=== PATIENT | female | born 1940 | race Caucasian/White ===

== ENCOUNTER 2017-08-09 19:17 | Emergency (ER) | payer MEDICARE, OTHER, SELFPAY ==
[2017-07-24 22:32] VITALS: BMI 23.9
[2017-08-09 19:25] VITALS: BP 137/86; PULSE 112; RESP 24; TEMP 36.7; O2SAT 99; BMI 22.8
[2017-08-09 19:32] VITALS: BP 137/86; PULSE 112; RESP 24; TEMP 36.7; O2SAT 99; BMI 22.8
--- NOTE | 2017-08-09 19:58 | ED.GENADULT ---
HPI - General Adult General Chief complaint: Recheck/Abnormal Lab/Rx Stated complaint: STATES HER BOTTOM HURTS Time Seen by Provider: 08/09/17 19:44 Source: patient and family Mode of arrival: ambulatory Limitations: no limitations History of Present Illness HPI narrative: 77-year-old female with a chronic history of rectal pain and a recent diagnosis of proctitis here with her for evaluation of increasing pain. Patient and state that they were told to come to the emergency department by the home health nurse and their primary doctor. During my initial evaluation patient's states that he has withheld her medication for the past 4 days. Upon further questioning is revealed that this was done because on Monday of last week the patient took approximately 6 days worth of her medication all at 1 time. Upon further questioning the patient states that she did this to try to kill herself because she did not want her to have to deal with her anymore. Also found out that the patient has tried to overdose in the past. Patient's stated that he did give her some of her medicines this morning but he does not know which ones they were. He states that after her last admission here in the hospital couple weeks ago where she was admitted for what sounded like an accidental overdose of her medicines he to control for medicines however put them in a pill box on the counter and the patient took them on her own. The rectal pain she is having is her chronic rectal pain just worse. Related Data Home Medications Medication Instructions Recorded Confirmed [BENEFIBER] 1 dose PO DAILY PRN #0 01/18/17 07/26/17 hydrocortisone acetate [Anusol-HC] 25 mg R PRN PRN #0 01/18/17 07/26/17 ondansetron HCl 8 mg PO Q8HP PRN #0 01/18/17 07/26/17 acetaminophen 500 mg PO Q6H PRN 07/24/17 07/26/17 amlodipine 10 mg PO QPM 07/24/17 07/26/17 clobetasol 1 applic TOPICAL PRN PRN 07/24/17 07/26/17 cyclosporine [Restasis] 1 drp OPHTHALMIC (EYE) BID 07/24/17 07/26/17 donepezil 10 mg PO BEDTIME 07/24/17 07/26/17 duloxetine 30 mg PO TID 07/24/17 07/24/17 estradiol 1 g VAGINAL DIRECTED 07/24/17 07/24/17 fluticasone furoate 1 spray INTRANASAL DAILY 07/24/17 07/24/17 hydrocortisone acetate [Anusol-HC] 1 supp [place] PRN PRN 07/24/17 07/24/17 ipratropium bromide 2 spray INTRANASAL BID 07/24/17 07/24/17 ketorolac 1 - 2 ml IM SEEINSTR MDD 5 x mo 07/24/17 07/24/17 lidocaine 1 applic TOPICAL PRN PRN 07/24/17 07/24/17 memantine 10 mg PO BID 07/24/17 07/24/17 mesalamine 2 tab PO DAILY 07/24/17 07/24/17 nystatin 1 applic TOPICAL BID 07/24/17 07/24/17 oxybutynin chloride 5 mg PO DAILY 07/24/17 07/24/17 pregabalin 100 mg PO BID 07/24/17 07/24/17 sumatriptan succinate 1 tab PO PRN PRN MDD 2 07/24/17 07/24/17 trazodone 150 mg PO QHS 07/24/17 07/24/17 triamcinolone acetonide 2 spray TOPICAL DAILY 07/24/17 07/24/17 wheat dextrin [Benefiber Clear SF 1 packet PO PRN PRN 07/24/17 07/24/17 (dextrin)] Allergies Allergy/AdvReac Type Severity Reaction Status Date / Time baclofen [BACLOFEN] Allergy Unknown Verified 07/25/17 10:04 cyclobenzaprine Allergy Unknown Verified 07/25/17 10:04 [From FLEXERIL] nortriptyline [NORTRIPTYLINE] Allergy Unknown Verified 07/25/17 10:04 Sulfa (Sulfonamide AdvReac Mild vomiting Verified 07/25/17 10:04 Antibiotics) [SULFA (SULFONAMIDE ANTIBIOTICS)] pantoprazole [From PROTONIX] AdvReac Unknown NAUSEA/DIAR Verified 07/25/17 10:04 SEAN Review of Systems Constitutional Denies chills, Denies fever(s), Denies lethargy and Denies weakness Cardiovascular Denies chest pain, Denies irregular heart rhythm, Denies lightheadedness, Denies palpitations, Denies dyspnea, Denies dyspnea on exertion and Denies orthopnea Respiratory Denies cough, Denies dyspnea, Denies dyspnea on exertion and Denies wheezing Gastrointestinal Gastrointestinal: Denies abdominal pain, Denies nausea and Denies vomiting Comments: Rectal pain Genitourinary Denies dysuria Musculoskeletal Denies back pain, Denies muscle weakness, Denies numbness and Denies tingling Integumentary/Breasts Denies pruritus, Denies erythema, Denies rash and Denies wounds Neurologic Denies numbness, Denies tingling and Denies weakness Psychiatric Reports depression, Reports hopelessness, Reports mood swings and Reports suicidal ideation (On Monday but none today) Endocrine Denies palpitations Hematologic/Lymphatic Denies easy bruising Allergic/Immunologic Denies wheezing [facility] Medical History Anxiety (Acute) Chronic pain syndrome (Acute) Chronic rectal pain (Acute) Degenerative arthritis (Acute) Dementia (Acute) Depression (Acute) H/O: hysterectomy (Acute) History of femur fracture (Acute) Hypertension (Acute) Irritable bowel syndrome (IBS) (Acute) Migraine (Acute) Peptic ulcer hemorrhage (Acute) Spinal stenosis (Acute) Surgical History History of appendectomy (Acute) Social History household members: spouse caregiver/support person: Yes other: She drinks about 2 alcoholic beverages a week. No cigarette smoking Exam Initial Vital Signs Initial Vital Signs: Vital Signs Temperature 98.1 F 08/09/17 19:25 Pulse Rate 112 H 08/09/17 19:25 Respiratory Rate 24 08/09/17 19:25 Blood Pressure 137/86 H 08/09/17 19:25 Pulse Oximetry 99 08/09/17 19:25 Const General: cooperative and well developed Nutritional Appearance: well nourished Orientation: alert, awake, oriented x3 and not confused [facility] Head: normocephalic and atraumatic Ears: external ears normal and TM's normal bilaterally Nose: external nose normal and No nasal discharge Face and sinus: sinuses nontender, face symmetric, no sinus tenderness and No dry mucous membranes Mouth: oral mucosae normal and moist mucous membranes Teeth and gingiva: dentition normal Throat: tonsils normal and uvula midline Chest Chest: normal inspection of the chest Resp Effort & Inspection: normal respiratory effort, able to speak in complete sentences, no respiratory distress and no use of accessory muscles Auscultation: clear to auscultation bilaterally, no rales, no rhonchi and no wheezes Skin General: no rashes or lesions noted, No jaundice and No petechiae Neuro General: alert, awake and oriented x3 Cognition: normal cognition Speech: speech normal Motor: muscle tone normal throughout Sensory Exam: no sensory deficits noted Psych Appearance: well kempt Speech and Movement: speech and movement normal Mood: anxious mood and irritable mood Affect: sad Thought Process: normal Thought Content: suicidality Judgment: fair Course Orders Ordered: Discontinued Medications Pregabalin (Lyrica) 100 mg PO NOW ONE Stop: 08/10/17 20:01 Pregabalin (Lyrica) 100 mg PO NOW COURTNEY Last Admin: 08/09/17 20:18 Dose: 100 mg Vital Signs - 8 hr 08/09/17 19:25 08/09/17 19:32 Temperature 98.1 F 98.1 F Pulse Rate 112 H 112 H Respiratory Rate 24 24 Blood Pressure 137/86 H 137/86 H Pulse Oximetry 99 99 Medical Decision Making MDM Narrative Medical decision making narrative: Patient with 12 years of rectal pain and has not had her pain medication in the past 4 days. She was given Lyrica here in the emergency department and afterwards she states that her symptoms have improved. We had a long discussion regarding her pain and I suspect that she had a spike in the pain because she has not had her normal medications for the past 4 days. We also had a very long discussion with the patient and her who is at bedside regarding the situation that happened last Monday in her taking the medications. She states that at the time she was taking them to hurt herself however currently she denied any suicidality. She has had reported history of suicide attempts in the past from overdosing. Patient kept saying that she just wanted to be admitted to the hospital but with further questioning she states that it was for pain control not because of thoughts of hurting herself. We had long discussion regarding options to include an acute admission to mental health facility for her symptoms versus getting her set up with a next day appointment with the crisis center in [place]. After this long discussion we decided to schedule the patient with an acute care follow-up tomorrow. The patient did not want admitted to the hospital. Her states that he felt safe taking her home. The patient states that she felt safe going home. She states she would not act on any thoughts that she was having. The was going to take control of her medications and physically given to her each day. Patient was given return precautions. She was given the information for the acute care follow-up tomorrow. She was informed that she could return to the emergency department at any point if she had thoughts of hurting herself. She was alert and oriented x3. In my opinion had capacity to make decisions. was at bedside for all this discussion and also agreed with taking her home. Discharge Plan Departure Patient Disposition: Home, Self-Care Clinical Impression: Proctitis, Depression Discharge Date/Time: 08/09/17 22:16 Interventions: ED Discharge Assessment Last Done: 08/09/17 22:15 Instructions: DI for Chronic Pain -- Adult Activity Restrictions/Additional Instructions: I recommend that you continue all of your medications starting this evening as directed. You have already received your night dose of Lyrica. Highly recommend that you follow up with the [facility] tomorrow at 1630 hr at [address] in [place]. The crisis line is [phone] you can call this number at any point if you are having thoughts of hurting herself or others. You can also return to the emergency department at any point if you are having these thoughts. Contact your primary care doctor for a follow-up to discuss your medications. Prescriptions: No Action hydrocortisone acetate [Anusol-HC] 25 MG suppository 25 mg R PRN PRN (Reason: Hemorrhoids) Qty: 0 RF: 0 [BENEFIBER] 1 dose PO DAILY PRN (Reason: Constipation) Qty: 0 RF: 0 ondansetron HCl 8 MG tablet 8 mg PO Q8HP PRN (Reason: Nausea And Vomiting) Qty: 0 RF: 0 sumatriptan succinate 100 mg Tablet 1 tab PO PRN MDD 2 PRN (Reason: Headache) RF: 0 donepezil 10 mg Tablet 10 mg PO BEDTIME RF: 0 acetaminophen 500 mg Tablet 500 mg PO Q6H PRN (Reason: Pain, Mild) RF: 0 amlodipine 10 mg Tablet 10 mg PO QPM RF: 0 trazodone 150 mg Tablet 150 mg PO QHS RF: 0 oxybutynin chloride 5 mg Tablet Extended Release 24hr 5 mg PO DAILY RF: 0 estradiol 0.01 % (0.1 mg/gram) Cream 1 g VAGINAL DIRECTED RF: 0 ipratropium bromide 0.03 % [place],Non-Aerosol 2 spray INTRANASAL BID RF: 0 memantine 10 mg Tablet 10 mg PO BID RF: 0 duloxetine 30 mg Capsule,Delayed Release(Dr/Ec) 30 mg PO TID RF: 0 ketorolac 60 mg/2 mL Syringe 1 - 2 ml IM SEEINSTR MDD 5 x mo RF: 0 pregabalin 100 mg Capsule 100 mg PO BID RF: 0 mesalamine 1.2 gram Tablet,Delayed Release (Dr/Ec) 2 tab PO DAILY RF: 0 fluticasone furoate 27.5 mcg/actuation [place],Suspension 1 spray Intranasal DAILY RF: 0 clobetasol 0.05 % Cream 1 applic Topical PRN PRN (Reason: unknown) RF: 0 hydrocortisone acetate [Anusol-HC] 25 mg Suppository 1 supp IL PRN PRN (Reason: Hemorrhoids) RF: 0 nystatin 100,000 unit/gram Cream 1 applic Topical BID RF: 0 cyclosporine [Restasis] 0.05 % [place] 1 drp ophthalmic (eye) BID RF: 0 triamcinolone acetonide 0.147 mg/gram Aerosol 2 spray TOPICAL DAILY RF: 0 wheat dextrin [Benefiber Clear SF (dextrin)] 3 gram/3.5 gram Powder In Packet 1 packet PO PRN PRN (Reason: Constipation) RF: 0 lidocaine 5 % Ointment 1 applic TOPICAL PRN PRN (Reason: unknown) RF: 0
[2017-08-09] MEDS: PREGABALIN 50 MG CAPSULE 100 MG PO (20:18)
--- NOTE | 2017-08-09 22:13 | PC.NURSE ---
Called [facility], obtained day after appointment for pt. Pt admitted to provider she had taken her meds on monday in an attempt to kill herself, she had taken 5 days worth of medications. APt scheduled for 1630 tomorrow in [place].
== END 2017-08-09 22:16 | disposition home or self-care (01) ==
PROVIDERS: Emergency Provider Emergency Medicine; Family Provider Internal Medicine; PCP Internal Medicine
DX: K62.89 Other specified diseases of anus and rectum (principal); F32.9 Major depressive disorder, single episode, unspecified
CPT/HCPCS: 99282; 99283

== ENCOUNTER → 2017-08-12 17:09 | Outpatient (CLI) | payer SELFPAY ==
[2017-07-24 22:32] VITALS: BMI 23.9
== END ==
PROVIDERS: Family Provider Internal Medicine; PCP Internal Medicine; Visit Provider Physician Assistant
DX: N39.0 Urinary tract infection, site not specified (principal)
CPT/HCPCS: 87077; 87086; 87186

== ENCOUNTER → 2017-12-11 08:22 | Outpatient (CLI) | payer MEDICARE, OTHER, SELFPAY ==
[2017-07-24 22:32] VITALS: BMI 23.9
--- NOTE | 2017-12-11 | DI.ECHO.S_ITS ---
[facility] +---------+ [facility] +---------+ : : [address] [place] : : : : [id number] : : : : Phone: [phone]+ Echocardiogram Report + + :Name: MOISES DA SILVA Study Date: 12/11/2017 Height: 60 in : :[facility] Weight: 134 lb : : Gender: Female BSA: 1.6 m2 : :: 1940 Age: 77 yrs BP: 152/88 mmHg: :Reason For Study: Edema, Dyspnea : : Performed By: Vika Patton : :Referring: ROBERT BARKER : + + Interpretation Summary Normal left ventricle size with ejection fraction 60-65%. Grade I diastolic dysfunction. Mild aortic regurgitation. The ascending aorta is mildly enlarged. Mild tricuspid regurgitation. The right ventricular systolic pressure is estimated at least 35 mmHg assuming a right atrial pressure of 8 mm Hg. (it was 45-50 mmHg in the previous study). Comparison is made with the echocardiogram of 08/13/2010, there has been no significant change. Procedure: A two-dimensional transthoracic echocardiogram with color flow and Doppler was performed. The study quality was technically adequate. Comparison is made with the echocardiogram of 08/13/2010. The patient was in normal sinus rhythm during the exam. Left Ventricle: The left ventricle is normal in size. There is normal left ventricular wall thickness. The ejection fraction is estimated to be 60-65%. Left ventricular wall motion is normal. Assessment of diastolic parameters indicates a relaxation abnormality of the left ventricle, consistent with normal filling pressures. Right Ventricle: The right ventricle is normal in size and function. Atria: Both atria are normal in size. There is no Doppler evidence for an interatrial shunt. Mitral Valve: The mitral valve is normal in structure and function. There is trace mitral regurgitation. Aortic Valve: The aortic valve is trileaflet. The aortic valve opens well. There is mild aortic regurgitation. Tricuspid Valve: The tricuspid valve is normal in structure and function. There is mild tricuspid regurgitation. The right ventricular systolic pressure is estimated at least 35 mmHg assuming a right atrial pressure of 8 mm Hg. Pulmonic Valve: The pulmonic valve leaflets are thin and pliable; valve motion is normal. There is mild pulmonic regurgitation. Great Vessels: The aortic root is normal size. The ascending aorta is mildly enlarged. The aortic arch is normal in size. The IVC is dilated (diameter is greater than 2.1 cm) yet it collapses greater than 50% with a sniff. This suggests a right atrial pressure of 8 mm Hg. Pericardium/ Pleura There is no pericardial effusion. There is no pleural effusion. MMode/2D Measurements & Calculations LVIDd: 4.3 cm LVOT diam: 2.2 cm LVIDs: 2.9 cm Ao root diam: 3.6 cm FS: 32.0 % Aortic Jxn: 3.2 cm EPSS: 0.27 cm asc Aorta Diam: 3.7 cm IVSd: 0.76 cm Ao Arch Diam (Prox Trans): 2.6 cm LVPWd: 0.81 cm LV moses. diameter/BSA (cm/m^2): 2.7 LV sys. diameter/BSA (cm/m^2): 1.9 LA A2 area: 16.1 cm2 RA long axis: 5.7 cm LA A4 area: 18.5 cm2 RA area: 17.9 cm2 LA length (vol): 5.4 cm RA vol: 48.3 ml LA vol: 46.8 ml RA : 30.7 ml/m2 LA vol index: 29.7 ml/m2 IVC diam: 2.2 cm RVD1 (basal): 3.2 cm RVD2 (mid): 2.1 cm Doppler Measurements & Calculations Ao V2 max: 192.3 cm/sec LVOT Max Anjel: 154.4 cm/sec Ao V2 mean: 129.3 cm/sec LV V1 max P.5 mmHg Ao max P.8 mmHg LV V1 VTI: 30.4 cm Ao mean P.8 mmHg GONZALES(I,D): 2.9 cm2 Ao V2 VTI: 38.7 cm GONZALES(V,D): 2.9 cm2 sev ratio: 0.79 GONZALES indexed to BSA (cm^2/m^2): 1.8 AI P1/2t: 488.5 msec AI dec slope: 296.0 cm/sec2 MV E max anjel: 86.9 cm/sec TR max anjel: 259.4 cm/sec MV A max anjel: 115.8 cm/sec TR max P.9 mmHg MV E/A: 0.75 PA V2 max: 100.7 cm/sec Med Peak E' Anjel: 4.5 cm/sec PA V2 mean: 62.9 cm/sec E/E' med: 19.2 PA mean P.9 mmHg Lat Peak E' Anjel: 7.7 cm/sec PA Accel Time: 0.07 sec E/E' lat: 11.3 E/e' average: 15.3 MV dec time: 0.19 sec MV P1/2t: 57.8 msec MV /2t max anjel: 87.0 cm/sec MVA(2t): 3.8 cm2 Electronically signed by: Elbert Correia on Reading Physician:12/11/2017 10:16 AM
[2017-12-11 10:28] LABS: Add Manual Diff / Slide Review NO; Alanine Aminotransferase 53 IU/L (9-52); Albumin 4.3 g/dL (3.5-5.0); Albumin Globulin Ratio 1.4 (1.0-2.8); Alkaline Phosphatase 88 U/L (38-126); Aspartate Aminotransferase 51 IU/L (14-36); BUN Creatinine Ratio 21.4 (6-22); Basophils Percent Auto 1.2 % (0-2); Bilirubin Total 0.4 mg/dL (0.2-1.3); Blood Urea Nitrogen 15 mg/dL (7-17); Calcium 9.4 mg/dL (8.4-10.2); Carbon Dioxide 34 mmol/L (22-32); Chloride 96 mmol/L (98-107); Cholesterol 164 mg/dL (140-199); Eosinophils Percent Auto 6.6 % (2-4); Estimated Glomerular Filt Rate > 60.0 mL/min (>60); Glucose 70 mg/dL (80-110); HDL Cholesterol 75 mg/dL (40-60); HEMOLYSIS < 15 (0-50); Hematocrit 34.4 % (36-46); Hemoglobin 11.7 g/dL (12.0-16.0); LDL Cholesterol Calculated 69 mg/dL (<100); Lymphocytes Percent Auto 24.7 % (25-40); Mean Corpuscular Hemoglobin 29.8 PG (26-34); Mean Corpuscular Volume 87.7 fL (80-100); Monocytes Percent Auto 9.2 % (3-14); Neutrophils Absolute Auto 2600 /uL (3000-5900); Neutrophils Percent Auto 58.3 % (50-75); Platelet Count 276 X10^3/uL (150-400); Potassium 3.6 mmol/L (3.4-5.1); Red Blood Cell Count 3.93 X10^6/uL (4.0-5.2); Red Cell Distribution Width 13.9 % (11.6-14.8); Sodium 137 mmol/L (137-145); Total Protein 7.3 g/dL (6.3-8.2); Triglycerides 98 mg/dL (35-150); White Blood Cell Count 4.5 X10^3/uL (4.5-11.0)
[2017-12-11 10:51] LABS: B Type Natriuretic Peptide < 100.0 (<100)
== END ==
PROVIDERS: Family Provider Internal Medicine; PCP Internal Medicine; Visit Provider Physician Assistant
DX: I08.2 Rheumatic disorders of both aortic and tricuspid valves (principal); R06.00 Dyspnea, unspecified; R60.9 Edema, unspecified; D50.0 Iron deficiency anemia secondary to blood loss (chronic); I10 Essential (primary) hypertension
CPT/HCPCS: 36415; 80053; 80061; 83880; 84443; 85025; 93306

== ENCOUNTER → 2017-12-18 09:28 | Outpatient (CLI) | payer MEDICARE, OTHER, SELFPAY ==
[2017-07-24 22:32] VITALS: BMI 23.9
== END ==
PROVIDERS: Family Provider Internal Medicine; PCP Internal Medicine; Visit Provider Internal Medicine
DX: M85.852 Other specified disorders of bone density and structure, left thigh (principal); Z78.0 Asymptomatic menopausal state; Z90.722 Acquired absence of ovaries, bilateral
CPT/HCPCS: 77080

== ENCOUNTER 2018-01-12 14:52 | Emergency (ER) | payer MEDICARE, OTHER, SELFPAY ==
[2017-07-24 22:32] VITALS: BMI 23.9
[2018-01-12 14:56] VITALS: BP 143/93; PULSE 83; RESP 18; TEMP 36.3; O2SAT 97; BMI 24.4
--- NOTE | 2018-01-12 16:37 | PC.NURSE ---
States vague pain, im not sure where it is. No pain with palpation
--- NOTE | 2018-01-12 17:01 | DI.CT.S_ITS ---
PROCEDURE: CT CERVICAL SPINE WO CON INDICATIONS: glf TECHNIQUE: Noncontrast 3 mm thick sections acquired from the skull base to the T4 level. Sagittal and coronal reformats were then constructed. For radiation dose reduction, the following was used: automated exposure control, adjustment of mA and/or kV according to patient size. COMPARISON: Merged With [facility], CT, C-SPINE WITHOUT CONTRAST, 06/02/2014, 10:08. FINDINGS: Image quality: Excellent. Bones: No fractures or dislocations. There is moderately severe degenerative disc disease and facet osteoarthritis over the middle third of the cervical spine, previously present also in May of 2014. Mild grade 1 retrolisthesis of C6 on C7 is again noted. Spinal and foraminal stenosis over the middle and lower thirds of the cervical spine appears present, as was previously the case. Visualized superior ribs are intact. Soft tissues: Prevertebral soft tissues are normal in thickness. No paravertebral hematomas. No apical pneumothoraces. IMPRESSION: Moderately severe degenerative disc disease over the middle and lower thirds of the cervical spine with spinal and foraminal stenosis but no acute trauma found. Little if any change has occurred from the comparison study in May of 2014. Dictated by: Cristian Blancas M.D. on 01/12/2018 at 17:46 Approved by: Cristian Blancas M.D. on 01/12/2018 at 17:47
--- NOTE | 2018-01-12 17:01 | DI.CT.S_ITS ---
PROCEDURE: CT HEAD/BRAIN WO CON INDICATIONS: glf, eye droop TECHNIQUE: Noncontrast 4.5 mm thick angled axial sections acquired from the foramen magnum to the vertex, with coronal and sagittal reformats. For radiation dose reduction, the following was used: automated exposure control, adjustment of mA and/or kV according to patient size. COMPARISON: [facility], CT, CT HEAD/BRAIN WO CON, 07/24/2017, 17:51. FINDINGS: Image quality: Excellent. CSF spaces: Basal cisterns are patent. No extra-axial fluid collections. The ventricles are symmetric in size and shape. Brain: No intracranial bleeds or masses. There is cerebral volume loss for age, with resultant ventricular and sulcal prominence. There are periventricular and deep white matter chronic small vessel ischemic changes. There is intracranial internal carotid artery atherosclerosis. Skull and face: Calvarium and visualized facial bones appear intact, without suspicious lesions. Sinuses: Visualized sinuses and mastoids are clear. IMPRESSION: No trauma found, but there is mild to moderate age related microvascular atherosclerotic change in the deep white matter of each hemisphere. Dictated by: Cristian Blancas M.D. on 01/12/2018 at 17:44 Approved by: Cristian Blancas M.D. on 01/12/2018 at 17:45
--- NOTE | 2018-01-12 17:05 | ED_ITS ---
HPI - Neck Pain/Injury <Sally Twila, SKIDDER RUNNER-BC - Last Filed: 01/12/18 22:17> General Chief Complaint: Neck Pain/Injury Stated Complaint: NECK PAIN LEFT EYE DISCOMFORT Time Seen by Provider: 01/12/18 16:50 Source: patient and RN notes reviewed Mode of arrival: ambulatory Limitations: no limitations History of Present Illness HPI Narrative: Patient is a 77-year-old female with history of migraines and chronic pain who presents with chief complaint of neck pain for 4 days as well as a droopy left eyelid that started 4 days ago as well. She denies any fevers , abnormal nausea vomiting or diarrhea. She denies any weakness anywhere else. She states that the left side of her neck hurts to touch. She denies headache. She denies dysuria urgency or frequency. She states that diarrhea is her baseline she denies abdominal pain. She initially declines any trauma mom a for me however tell as nursing staff that she fell yesterday. Related Data Home Medications Medication Instructions Recorded Confirmed acetaminophen 500 mg PO Q6H PRN 07/24/17 01/12/18 amlodipine 10 mg PO QPM 07/24/17 01/12/18 clobetasol 1 applic TOPICAL PRN PRN 07/24/17 01/12/18 cyclosporine [Restasis] 1 drp OPHTHALMIC (EYE) BID 07/24/17 01/12/18 donepezil 10 mg PO BEDTIME 07/24/17 01/12/18 estradiol 1 g VAGINAL DIRECTED 07/24/17 01/12/18 fluticasone furoate 1 spray INTRANASAL DAILY 07/24/17 01/12/18 hydrocortisone acetate [Anusol-HC] 1 supp CO PRN PRN 07/24/17 01/12/18 ipratropium bromide 2 spray INTRANASAL BID 07/24/17 01/12/18 lidocaine 1 applic TOPICAL PRN PRN 07/24/17 01/12/18 memantine 10 mg PO BID 07/24/17 01/12/18 mesalamine 2 tab PO DAILY 07/24/17 01/12/18 nystatin 1 applic TOPICAL BID 07/24/17 01/12/18 trazodone 150 mg PO BEDTIME 07/24/17 01/12/18 triamcinolone acetonide 2 spray TOPICAL DAILY 07/24/17 01/12/18 wheat dextrin [Benefiber Clear SF 1 packet PO PRN PRN 07/24/17 01/12/18 (dextrin)] chlorthalidone 12.5 mg PO DAILY 01/12/18 01/12/18 duloxetine 30 mg PO TID 01/12/18 01/12/18 furosemide 40 mg PO DAILY 01/12/18 01/12/18 losartan 50 mg PO DAILY 01/12/18 01/12/18 sumatriptan succinate 100 mg PO PRN PRN 01/12/18 01/12/18 Previous Rx's Medication Instructions Recorded pregabalin 100 mg capsule 100 mg PO BID #60 cap 09/25/17 erenumab-aooe 70 mg/mL 70 mg SUBCUT QMONTH #1 ml 12/21/17 subcutaneous auto-injector nitrofurantoin monohyd/m-cryst 100 mg PO BID #10 cap 01/12/18 [Macrobid] Allergies Allergy/AdvReac Type Severity Reaction Status Date / Time baclofen [BACLOFEN] Allergy Unknown Verified 01/12/18 15:09 cyclobenzaprine Allergy Unknown Verified 01/12/18 15:09 [From FLEXERIL] nortriptyline [NORTRIPTYLINE] Allergy Unknown Verified 01/12/18 15:09 Sulfa (Sulfonamide AdvReac Mild vomiting Verified 01/12/18 15:09 Antibiotics) [SULFA (SULFONAMIDE ANTIBIOTICS)] pantoprazole [From PROTONIX] AdvReac Unknown NAUSEA/DIAR Verified 01/12/18 15:09 SEAN Review of Systems <JACEK Ewing-BC - Last Filed: 01/12/18 22:17> Review of Systems GENERAL: Denies chills, fatigue, malaise, fever, sweats. HEENT: See HPI RESPIRATORY: Denies dyspnea, cough, wheezing, hemoptysis, sputum. CARDIOVASCULAR: Denies chest pain, palpitations, orthopnea, edema, GASTROINTESTINAL: Denies nausea, vomiting, abdominal pain, diarrhea, constipation, melena. : Denies dysuria, frequency, incontinence, hematuria, urinary retention. MUSCULOSKELETAL: see HPI SKIN: Denies rash, skin lesions, or other NEUROLOGIC: Denies weakness, headache, numbness, change in speech, confusion, seizures, incoordination. PSYCHIATRIC: No concerning psychosocial issues. 12 point review of systems is negative except for those stated above Exam <Sally SARAH MattsonP-BC - Last Filed: 01/12/18 22:17> Narrative Exam Narrative: GENERAL: elderly female in no acute distress HEAD: Atraumatic. Normocephalic. No temporal or scalp tenderness. EYES: right pupil 3 mm round and reactive. Left pupil 4 mm round and reactive.. Extraocular motions intact. No scleral icterus. No injection or drainage. Ptosis noted left eye. ENT: Nose without bleeding, purulent drainage or septal hematoma. Throat without erythema, tonsillar hypertrophy or exudate. Uvula midline. Airway patent. NECK: Trachea midline. No JVD or lymphadenopathy. Supple, nontender, no meningeal signs. Pain to palpation of left sternocleidomastoid. CARDIOVASCULAR: Regular rate and rhythm without murmurs, gallops, or rubs. RESPIRATORY: Clear to auscultation. Breath sounds equal bilaterally. No wheezes , rales, or rhonchi. no cough or accessory muscle use on exam. GASTROINTESTINAL: Abdomen soft, non-tender, nondistended. No hepato-splenomegaly , or palpable masses. No guarding. EXTREMITIES: No clubbing, cyanosis, or edema. No joint tenderness, effusion, or edema noted. BACK: Nontender without deformity or crepitance. No flank tenderness. No pain to palpation of C-spine or spine. No palpable step-offs or deformities. NEURO: AOx3. No slurred speech. Stable gait. cranial nerves grossly intact other than ptosis of left eye. Strength is equal upper and lower extremities bilaterally. Achilles and radialis reflexes are intact. SKIN: No rash or erythema. Initial Vital Signs Initial Vital Signs: Vital Signs Temperature 97.4 F L 01/12/18 14:56 Pulse Rate 83 01/12/18 14:56 Respiratory Rate 18 01/12/18 14:56 Blood Pressure 143/93 H 01/12/18 14:56 Pulse Oximetry 97 01/12/18 14:56 <Abhijit Buckley DO - Last Filed: 01/12/18 22:58> Initial Vital Signs Initial Vital Signs: Vital Signs Temperature 97.4 F L 01/12/18 14:56 Pulse Rate 83 01/12/18 14:56 Respiratory Rate 18 01/12/18 14:56 Blood Pressure 143/93 H 01/12/18 14:56 Pulse Oximetry 97 11/02/18 14:56 Course <Sally MattsonSARAHP-BC - Last Filed: 01/12/18 22:17> Course Narrative: I checked on the patient multiple times throughout her stay in the emergency department. Orders Ordered: ED Orders 01/12/18 15:07 EKG-12 Lead Stat 01/12/18 17:01 CT cervical spine wo con Stat CT head/brain wo con Stat 01/12/18 17:15 Urine Culture Stat Urine Microscopic Stat 01/12/18 17:32 B Type Natriuretic Peptide Stat Complete Blood Count AUTO DIFF Stat Comprehensive Metabolic Panel Stat Prothrombin Time INR Stat Troponin & CK Cardiac Panel Stat 01/12/18 18:39 CT angio head and neck Stat Discontinued Medications Acetaminophen (Tylenol) 650 mg PO NOW ONE Stop: 01/12/18 18:27 Last Admin: 01/12/18 18:28 Dose: 650 mg Ibuprofen (Advil) 400 mg PO NOW ONE Stop: 01/12/18 21:09 Last Admin: 01/12/18 21:31 Dose: 400 mg Nitrofurantoin Macrocrystals (Macrobid 100 Mg Capsule) 100 mg PO NOW ONE Stop: 01/12/18 21:09 Last Admin: 01/12/18 21:31 Dose: 100 mg Consultations Consultation #1: I spoke with radiologist regarding the CTA results. 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 He states that this is not an acute finding for this patient. Time: 20:30 Vital Signs - 8 hr 01/12/18 20:05 01/12/18 21:25 Pulse Rate 72 76 Respiratory Rate 12 16 Blood Pressure [Right Arm] 151/72 H 150/81 H Pulse Oximetry 95 97 <Abhijit Buckley DO - Last Filed: 01/12/18 22:58> Orders Ordered: ED Orders 01/12/18 15:07 EKG-12 Lead Stat 01/12/18 17:01 CT cervical spine wo con Stat CT head/brain wo con Stat 01/12/18 17:15 Urine Culture Stat Urine Microscopic Stat 01/12/18 17:32 B Type Natriuretic Peptide Stat Complete Blood Count AUTO DIFF Stat Comprehensive Metabolic Panel Stat Prothrombin Time INR Stat Troponin & CK Cardiac Panel Stat 01/12/18 18:39 CT angio head and neck Stat Discontinued Medications Acetaminophen (Tylenol) 650 mg PO NOW ONE Stop: 01/12/18 18:27 Last Admin: 01/12/18 18:28 Dose: 650 mg Ibuprofen (Advil) 400 mg PO NOW ONE Stop: 01/12/18 21:09 Last Admin: 01/12/18 21:31 Dose: 400 mg Nitrofurantoin Macrocrystals (Macrobid 100 Mg Capsule) 100 mg PO NOW ONE Stop: 01/12/18 21:09 Last Admin: 01/12/18 21:31 Dose: 100 mg Vital Signs - 8 hr 01/12/18 20:05 01/12/18 21:25 Pulse Rate 72 76 Respiratory Rate 12 16 Blood Pressure [Right Arm] 151/72 H 150/81 H Pulse Oximetry 95 97 MDM - Neck Pain/Injury <JACEK Ewing- - Last Filed: 01/12/18 22:17> Lab Data Result diagrams: 01/12/18 17:32 01/12/18 17:32 Lab Results 01/12/18 01/12/18 01/12/18 Range/Units 17:15 17:32 17:32 WBC 4.0 L (4.5-11.0) X10^3/uL RBC 3.68 L (4.0-5.2) X10^6/uL Hgb 11.2 L (12.0-16.0) g/dL Hct 33.2 L (36-46) % MCV 90.3 (80-100) fL MCH 30.5 (26-34) PG MCHC 33.8 (30-36) % RDW 13.3 (11.6-14.8) % Plt Count 280 (150-400) X10^3/uL Neut % (Auto) 59.5 (50-75) % Lymph % (Auto) 25.7 (25-40) % [place] % (Auto) 10.8 (3-14) % Eos % (Auto) 3.3 (2-4) % Baso % (Auto) 0.7 (0-2) % Neut # (Auto) 2400 L (0573-3369) /uL PT 11.4 (10.1-12.7) SECONDS INR 1.1 (0.9-1.3) Sodium (137-145) mmol/L Potassium (3.4-5.1) mmol/L Chloride (98-107) mmol/L Carbon Dioxide (22-32) mmol/L BUN (7-17) mg/dL Creatinine (0.52-1.04) mg/dL Estimated GFR (>60) mL/min BUN/Creatinine Ratio (6-22) Glucose (80-110) mg/dL Calcium (8.4-10.2) mg/dL Total Bilirubin (0.2-1.3) mg/dL AST (14-36) IU/L ALT (9-52) IU/L Alkaline Phosphatase (38-126) U/L Total Creatine Kinase (30-135) U/L CK-MB (CK-2) (<2.37) ng/mL CK-MB (CK-2) Rel Index (1.5-5.0) % Troponin I (0.01-0.034) ng/mL B-Natriuretic Peptide (<100) Total Protein (6.3-8.2) g/dL Albumin (3.5-5.0) g/dL Globulin (1.7-4.1) g/dL Albumin/Globulin Ratio (1.0-2.8) Urine RBC None seen (0-5/HPF) Urine WBC 1-5/hpf (0-5/HPF) Ur Squamous Epith Cells 0-1 /hpf Urine Bacteria Moderate (10-30) H (None) Ur Culture Indicated? Specimen cultured Micro UA Comment Not Reportable 01/12/18 01/12/18 Range/Units 17:32 17:32 WBC (4.5-11.0) X10^3/uL RBC (4.0-5.2) X10^6/uL Hgb (12.0-16.0) g/dL Hct (36-46) % MCV (80-100) fL MCH (26-34) PG MCHC (30-36) % RDW (11.6-14.8) % Plt Count (150-400) X10^3/uL Neut % (Auto) (50-75) % Lymph % (Auto) (25-40) % [place] % (Auto) (3-14) % Eos % (Auto) (2-4) % Baso % (Auto) (0-2) % Neut # (Auto) (0879-9433) /uL PT (10.1-12.7) SECONDS INR (0.9-1.3) Sodium 135 L (137-145) mmol/L Potassium 3.4 (3.4-5.1) mmol/L Chloride 98 (98-107) mmol/L Carbon Dioxide 27 (22-32) mmol/L BUN 12 (7-17) mg/dL Creatinine 0.50 L (0.52-1.04) mg/dL Estimated GFR > 60.0 (>60) mL/min BUN/Creatinine Ratio 24.0 H (6-22) Glucose 86 (80-110) mg/dL Calcium 9.3 (8.4-10.2) mg/dL Total Bilirubin 0.4 (0.2-1.3) mg/dL AST 55 H (14-36) IU/L ALT 52 (9-52) IU/L Alkaline Phosphatase 74 (38-126) U/L Total Creatine Kinase 517 H (30-135) U/L CK-MB (CK-2) 8.90 H (<2.37) ng/mL CK-MB (CK-2) Rel Index 1.7 (1.5-5.0) % Troponin I < 0.012 (0.01-0.034) ng/mL B-Natriuretic Peptide 47.9 (<100) Total Protein 6.6 (6.3-8.2) g/dL Albumin 4.1 (3.5-5.0) g/dL Globulin 2.5 (1.7-4.1) g/dL Albumin/Globulin Ratio 1.6 (1.0-2.8) Urine RBC (0-5/HPF) Urine WBC (0-5/HPF) Ur Squamous Epith Cells Urine Bacteria (None) Ur Culture Indicated? Micro UA Comment Urine Dip Bedside Urine Glucose Negative Bedside Urine Bilirubin - Negative Bedside Urine Ketone - Negative Urine Specific [place] 1.015 Bedside Urine Occult Blood - Negative Bedside Urine pH 6.0 Bedside Urine Protein - Negative Bedside Urine Urobilinogen - Negative Bedside Urine Nitrite - Negative Bedside Urine Leukocytes + [address] scan - head: Radiologist's impression: [address] [address] [address] Scan Report Signed Patient: Elizabeth Parker [facility]#: [id number] : 2Acct:[id number] Age/Sex: 77 / FDate of Service: 01/12/18 Loc: ED Accession Number: [id number] Procedure: CT head/brain wo con Ordering Provider: Sally Mattosn PROCEDURE: CT HEAD/BRAIN WO CON INDICATIONS: glf, eye droop TECHNIQUE: Noncontrast 4.5 mm thick angled axial sections acquired from the foramen magnum to the vertex, with coronal and sagittal reformats. For radiation dose reduction, the following was used: automated exposure control, adjustment of mA and/or kV according to patient size. COMPARISON: [facility], CT, CT HEAD/BRAIN WO CON, 07/24/2017, 17:51. FINDINGS: Image quality: Excellent. CSF spaces: Basal cisterns are patent. No extra-axial fluid collections. The ventricles are symmetric in size and shape. Brain: No intracranial bleeds or masses. There is cerebral volume loss for age , with resultant ventricular and sulcal prominence. There are periventricular and deep white matter chronic small vessel ischemic changes. There is intracranial internal carotid artery atherosclerosis. Skull and face: Calvarium and visualized facial bones appear intact, without suspicious lesions. Sinuses: Visualized sinuses and mastoids are clear. IMPRESSION: No trauma found, but there is mild to moderate age related microvascular atherosclerotic change in the deep white matter of each hemisphere. Dictated by: Cristian Blancas M.D. on 01/12/2018 at 17:44 Approved by: Cristian Blancas M.D. on 01/12/2018 at 17:[address] : Radiologist's impression: [place] [address] CT Scan Report Signed Patient: Elizabeth Parker [facility]#: [id number] : 2Acct:[id number] Age/Sex: 77 / FDate of Service: 01/12/18 Loc: ED Accession Number: [id number] Procedure: CT cervical spine wo con Ordering Provider: Sally Mattson PROCEDURE: CT CERVICAL SPINE WO CON INDICATIONS: glf TECHNIQUE: Noncontrast 3 mm thick sections acquired from the skull base to the T4 level. Sagittal and coronal reformats were then constructed. For radiation dose reduction, the following was used: automated exposure control, adjustment of mA and/or kV according to patient size. COMPARISON: [facility], CT, C-SPINE WITHOUT CONTRAST, 06/02/2014, 10:08. FINDINGS: Image quality: Excellent. Bones: No fractures or dislocations. There is moderately severe degenerative disc disease and facet osteoarthritis over the middle third of the cervical spine, previously present also in May of 2014. Mild grade 1 retrolisthesis of C6 on C7 is again noted. Spinal and foraminal stenosis over the middle and lower thirds of the cervical spine appears present, as was previously the case. Visualized superior ribs are intact. Soft tissues: Prevertebral soft tissues are normal in thickness. No paravertebral hematomas. No apical pneumothoraces. IMPRESSION: Moderately severe degenerative disc disease over the middle and lower thirds of the cervical spine with spinal and foraminal stenosis but no acute trauma found. Little if any change has occurred from the comparison study in May of 2014. Dictated by: Cristian Blancas M.D. on 01/12/2018 at 17:46 Approved by: Cristian Blancas M.D. on 01/12/2018 at 17:47 CTA head/neck: Radiologist's impression: MDM Narrative Medical decision making narrative: Patient is a 77-year-old female who presents with chief complaint of left-sided neck pain as well as drooping of the left eye. Otherwise her face is symmetrical, her cranial nerves are grossly intact and her exam is benign. She has pain upon palpation of the left side of her neck but has not taken yeuu-gav-sgejfco pain medications. She received a thorough workup in the emergency department including EKG, CT of her head, CT of her neck after report of a fall. Given her slightly unequal pupils , I obtained a CTA of her head and neck. 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 The patient had a CBC, CMP and troponin that were at her baseline. I discussed at length continued nnaq-uoh-pcmxsua comfort medications as well as strict follow-up for her primary care. She does have bacteria in her urine so I am treating her for urinary tract infection. given her new onset ptosis of her left eye, she may need MRI imaging in the future. I discussed at length follow up with primary care provider. She had no questions or concerns upon discharge. Discussed at length return precautions of concern of stroke or heart attack. <Abhijit Buckley, - Last Filed: 01/12/18 22:58> Lab Data Lab Results 01/12/18 01/12/18 01/12/18 Range/Units 17:15 17:32 17:32 WBC 4.0 L (4.5-11.0) X10^3/uL RBC 3.68 L (4.0-5.2) X10^6/uL Hgb 11.2 L (12.0-16.0) g/dL Hct 33.2 L (36-46) % MCV 90.3 (80-100) fL MCH 30.5 (26-34) PG MCHC 33.8 (30-36) % RDW 13.3 (11.6-14.8) % Plt Count 280 (150-400) X10^3/uL Neut % (Auto) 59.5 (50-75) % Lymph % (Auto) 25.7 (25-40) % [place] % (Auto) 10.8 (3-14) % Eos % (Auto) 3.3 (2-4) % Baso % (Auto) 0.7 (0-2) % Neut # (Auto) 2400 L (6704-0062) /uL PT 11.4 (10.1-12.7) SECONDS INR 1.1 (0.9-1.3) Sodium (137-145) mmol/L Potassium (3.4-5.1) mmol/L Chloride (98-107) mmol/L Carbon Dioxide (22-32) mmol/L BUN (7-17) mg/dL Creatinine (0.52-1.04) mg/dL Estimated GFR (>60) mL/min BUN/Creatinine Ratio (6-22) Glucose (80-110) mg/dL Calcium (8.4-10.2) mg/dL Total Bilirubin (0.2-1.3) mg/dL AST (14-36) IU/L ALT (9-52) IU/L Alkaline Phosphatase (38-126) U/L Total Creatine Kinase (30-135) U/L CK-MB (CK-2) (<2.37) ng/mL CK-MB (CK-2) Rel Index (1.5-5.0) % Troponin I (0.01-0.034) ng/mL B-Natriuretic Peptide (<100) Total Protein (6.3-8.2) g/dL Albumin (3.5-5.0) g/dL Globulin (1.7-4.1) g/dL Albumin/Globulin Ratio (1.0-2.8) Urine RBC None seen (0-5/HPF) Urine WBC 1-5/hpf (0-5/HPF) Ur Squamous Epith Cells 0-1 /hpf Urine Bacteria Moderate (10-30) H (None) Ur Culture Indicated? Specimen cultured Micro UA Comment Not Reportable 01/12/18 01/12/18 Range/Units 17:32 17:32 WBC (4.5-11.0) X10^3/uL RBC (4.0-5.2) X10^6/uL Hgb (12.0-16.0) g/dL Hct (36-46) % MCV (80-100) fL MCH (26-34) PG MCHC (30-36) % RDW (11.6-14.8) % Plt Count (150-400) X10^3/uL Neut % (Auto) (50-75) % Lymph % (Auto) (25-40) % [place] % (Auto) (3-14) % Eos % (Auto) (2-4) % Baso % (Auto) (0-2) % Neut # (Auto) (8445-4928) /uL PT (10.1-12.7) SECONDS INR (0.9-1.3) Sodium 135 L (137-145) mmol/L Potassium 3.4 (3.4-5.1) mmol/L Chloride 98 (98-107) mmol/L Carbon Dioxide 27 (22-32) mmol/L BUN 12 (7-17) mg/dL Creatinine 0.50 L (0.52-1.04) mg/dL Estimated GFR > 60.0 (>60) mL/min BUN/Creatinine Ratio 24.0 H (6-22) Glucose 86 (80-110) mg/dL Calcium 9.3 (8.4-10.2) mg/dL Total Bilirubin 0.4 (0.2-1.3) mg/dL AST 55 H (14-36) IU/L ALT 52 (9-52) IU/L Alkaline Phosphatase 74 (38-126) U/L Total Creatine Kinase 517 H (30-135) U/L CK-MB (CK-2) 8.90 H (<2.37) ng/mL CK-MB (CK-2) Rel Index 1.7 (1.5-5.0) % Troponin I < 0.012 (0.01-0.034) ng/mL B-Natriuretic Peptide 47.9 (<100) Total Protein 6.6 (6.3-8.2) g/dL Albumin 4.1 (3.5-5.0) g/dL Globulin 2.5 (1.7-4.1) g/dL Albumin/Globulin Ratio 1.6 (1.0-2.8) Urine RBC (0-5/HPF) Urine WBC (0-5/HPF) Ur Squamous Epith Cells Urine Bacteria (None) Ur Culture Indicated? Micro UA Comment Urine Dip Bedside Urine Glucose Negative Bedside Urine Bilirubin - Negative Bedside Urine Ketone - Negative Urine Specific [place] 1.015 Bedside Urine Occult Blood - Negative Bedside Urine pH 6.0 Bedside Urine Protein - Negative Bedside Urine Urobilinogen - Negative Bedside Urine Nitrite - Negative Bedside Urine Leukocytes + 70 Esterase Discharge Plan Departure Patient Disposition: Home Clinical Impression: Acute neck pain, Ptosis, Acute UTI Discharge Date/Time: 01/12/18 21:35 Interventions: ED Discharge Assessment Last Done: 01/12/18 21:37 Instructions: DI for Urinary Tract Infection (UTI), DI for Neck Pain Activity Restrictions/Additional Instructions: Your workup today came back normal. I encourage you to use pgsx-zgi-qzhbuyw pain medications as needed and able for your neck pain. Please follow-up with primary care provider in the next few days. Come back to the emergency department for any acute concerns including stroke or heart attack. Prescriptions: New nitrofurantoin monohyd/m-cryst [Macrobid] 100 mg capsule 100 mg PO BID Qty: 10 RF: 0 No Action pregabalin 100 mg capsule 100 mg PO BID Qty: 60 RF: 5 losartan 50 mg tablet 50 mg PO DAILY RF: 0 furosemide 40 mg tablet 40 mg PO DAILY RF: 0 sumatriptan succinate 100 mg tablet 100 mg PO PRN PRN (Reason: Headache) RF: 0 chlorthalidone 25 mg tablet 12.5 mg PO DAILY RF: 0 duloxetine 30 mg capsule,delayed release(DR/EC) 30 mg PO TID RF: 0 donepezil 10 mg Tablet 10 mg PO BEDTIME RF: 0 acetaminophen 500 mg Tablet 500 mg PO Q6H PRN (Reason: Pain, Mild) RF: 0 amlodipine 10 mg Tablet 10 mg PO QPM RF: 0 trazodone 150 mg Tablet 150 mg PO BEDTIME RF: 0 estradiol 0.01 % (0.1 mg/gram) Cream 1 g VAGINAL DIRECTED RF: 0 ipratropium bromide 0.03 % [place],Non-Aerosol 2 spray INTRANASAL BID RF: 0 memantine 10 mg Tablet 10 mg PO BID RF: 0 mesalamine 1.2 gram Tablet,Delayed Release (Dr/Ec) 2 tab PO DAILY RF: 0 fluticasone furoate 27.5 mcg/actuation [place],Suspension 1 spray Intranasal DAILY RF: 0 clobetasol 0.05 % Cream 1 applic Topical PRN PRN (Reason: unknown) RF: 0 hydrocortisone acetate [Anusol-HC] 25 mg Suppository 1 supp CO PRN PRN (Reason: Hemorrhoids) RF: 0 nystatin 100,000 unit/gram Cream 1 applic Topical BID RF: 0 cyclosporine [Restasis] 0.05 % [place] 1 drp ophthalmic (eye) BID RF: 0 triamcinolone acetonide 0.147 mg/gram Aerosol 2 spray TOPICAL DAILY RF: 0 wheat dextrin [Benefiber Clear SF (dextrin)] 3 gram/3.5 gram Powder In Packet 1 packet PO PRN PRN (Reason: Constipation) RF: 0 lidocaine 5 % Ointment 1 applic TOPICAL PRN PRN (Reason: unknown) RF: 0 onabotulinumtoxinA 200 unit recon soln 200 unit IM ONCE Qty: 1 RF: 0 erenumab-aooe [A[place]ovig Autoinjector] 70 mg/mL auto-injector 70 mg SUBCUT QMONTH Qty: 1 RF: 11 <Abhijit Buckley, DO - Last Filed: 01/12/18 22:58> Cosign ED Attending Blancaature Attestation: I was available for consultation during this patient's emergency department encounter
[2018-01-12 17:29] LABS: RBC Urine None Seen (0-5/HPF)
[2018-01-12 17:43] LABS: Add Manual Diff / Slide Review NO; Basophils Percent Auto 0.7 % (0-2); Eosinophils Percent Auto 3.3 % (2-4); Hematocrit 33.2 % (36-46); Hemoglobin 11.2 g/dL (12.0-16.0); Lymphocytes Percent Auto 25.7 % (25-40); Mean Corpuscular HGB Conc 33.8 % (30-36); Mean Corpuscular Hemoglobin 30.5 PG (26-34); Mean Corpuscular Volume 90.3 fL (80-100); Monocytes Percent Auto 10.8 % (3-14); Neutrophils Absolute Auto 2400 /uL (3000-5900); Neutrophils Percent Auto 59.5 % (50-75); Platelet Count 280 X10^3/uL (150-400); Red Blood Cell Count 3.68 X10^6/uL (4.0-5.2); Red Cell Distribution Width 13.3 % (11.6-14.8)
[2018-01-12 17:48] LABS: INR 1.1 (0.9-1.3); Prothrombin Time 11.4 SECONDS (10.1-12.7)
[2018-01-12 17:48] LABS: Bacteria Urine Moderate (10-30); Culture Indicated Urine Specimen Cultured; Squamous Epithelial Cell Urine 0-1 /HPF; WBC Urine 1-5/HPF (0-5/HPF)
[2018-01-12 17:53] LABS: Alanine Aminotransferase 52 IU/L (9-52); Albumin 4.1 g/dL (3.5-5.0); Albumin Globulin Ratio 1.6 (1.0-2.8); Alkaline Phosphatase 74 U/L (38-126); Aspartate Aminotransferase 55 IU/L (14-36); Bilirubin Total 0.4 mg/dL (0.2-1.3); Blood Urea Nitrogen 12 mg/dL (7-17); Calcium 9.3 mg/dL (8.4-10.2); Carbon Dioxide 27 mmol/L (22-32); Chloride 98 mmol/L (98-107); Creatine Kinase 517 U/L (30-135); Estimated Glomerular Filt Rate > 60.0 mL/min (>60); Globulin 2.5 g/dL (1.7-4.1); Glucose 86 mg/dL (80-110); HEMOLYSIS < 15 (0-50); Potassium 3.4 mmol/L (3.4-5.1); Sodium 135 mmol/L (137-145); Total Protein 6.6 g/dL (6.3-8.2)
[2018-01-12 18:04] LABS: B Type Natriuretic Peptide 47.9 (<100)
--- NOTE | 2018-01-12 18:08 | PC.NURSE ---
Hard c collar removed as not injury identified by ct. CMS intact
[2018-01-12 18:09] LABS: CKMB % Relative Index 1.7 % (1.5-5.0); Troponin I < 0.012 ng/mL (0.01-0.034)
[2018-01-12] MEDS: ACETAMINOPHEN 325 MG TABLET 650 MG PO (18:28)
--- NOTE | 2018-01-12 18:39 | DI.CT.S_ITS ---
PROCEDURE: CT ANGIO HEAD AND NECK INDICATIONS: neck pain TECHNIQUE: Pre-contrast 4.5 mm thick sections acquired from the foramen magnum to the vertex. After the administration of intravenous contrast, 1 mm thick sections acquired from the aortic arch through the [place]. Post-contrast 4.5 mm thick sections then re-acquired from the foramen magnum to the vertex. 3-dimensional xbdtago-xkissaajx-ufrdkwxtol (MIP) and/or volume rendering reformats were acquired of the central intracranial vasculature and neck separately. COMPARISON: None. FINDINGS: Image quality: Excellent. BRAIN: CSF spaces: Ventricles are normal in size and shape. Basal cisterns are patent. No extra-axial fluid collections. Brain: Mild age-appropriate cerebral and cerebellar cortical atrophy and mild periventricular white matter chronic ischemic microangiopathic changes are seen. No area of abnormal contrast enhancement is noted. No midline shift. No intracranial bleeds or masses. Flower-white matter interface appears intact. Skull and face: Calvarium and facial bones appear intact, without suspicious lesions. Orbits appear normal. Sinuses: Sinuses and mastoids are clear. HEAD CT ANGIOGRAPHY: Anterior circulation: Intracranial internal carotid arteries are normal in size and flow. The flow within the paired anterior cerebral arteries is normal and symmetric. The flow within the middle cerebral arteries is normal and symmetric. The anterior communicating artery is seen. No aneurysms are seen. Posterior circulation: Visualized portions of the vertebral arteries demonstrate normal caliber, and join to form a normal appearing basilar artery. Flow within the posterior cerebral arteries is normal and symmetric. No aneurysms are seen. NECK CT ANGIOGRAPHY: Carotid system: The great vessels demonstrate a conventional anatomy as they arise from the aortic arch. The origins of the common carotid arteries appear patent. The common carotid arteries demonstrate normal caliber and courses. The bifurcation regions are both widely patent. The internal carotid arteries demonstrate normal calibers and courses. 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 Most distal intracranial portion of left vertebral artery is supplied from the right side The origin of the right vertebral artery appears widely patent. The The more superior extracranial portion of right vertebral artery also demonstrates normal courses and calibers. They join to form a normal appearing basilar artery. Soft tissues: Visualized neck soft tissues demonstrate no suspicious abnormalities. Bones: No suspicious bony lesions. Visualized cervical spine appears normally aligned. IMPRESSION: 1. No CT evidence of acute intracranial pathology. No area of abnormal contrast enhancement. 2. No hemodynamically significant stenosis or aneurysm is seen in the intracranial circulation. 3. No hemodynamically significant stenosis is seen in bilateral carotid arteries. 4. 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 Any quantitative measurements of stenosis were performed using NASCET criteria. Dictated by: Noel Silvestre M.D. on 01/12/2018 at 19:53 Approved by: Noel Silvestre M.D. on 01/12/2018 at 20:15
[2018-01-12 20:05] VITALS: BP 151/72; PULSE 72; RESP 12; O2SAT 95
[2018-01-12 21:25] VITALS: BP 150/81; PULSE 76; RESP 16; O2SAT 97
[2018-01-12] MEDS: NITROFURANTOIN ER 100 MG CAPSULE PO (21:31)
[2018-01-12] MEDS: IBUPROFEN 400 MG TABLET PO (21:31)
== END 2018-01-12 21:35 | disposition home or self-care (01) ==
PROVIDERS: Emergency Provider Nurse Practitioner Family; Family Provider Internal Medicine; PCP Internal Medicine
DX: M54.2 Cervicalgia (principal); H02.409 Unspecified ptosis of unspecified eyelid; N39.0 Urinary tract infection, site not specified
CPT/HCPCS: 36591; 70450; 70496; 70498; 72125; 80053; 81003; 81015; 82550; 82553; 83880; 84484; 85025; 85610; 87077; 87086; 87186; 93005; 99284; 99285; Q9967

== ENCOUNTER → 2018-01-24 17:43 | Outpatient (CLI) | payer MEDICARE, OTHER, SELFPAY ==
[2017-07-24 22:32] VITALS: BMI 23.9
--- NOTE | 2018-01-24 17:44 | DI.MRI.S_ITS ---
PROCEDURE: MR HEAD/BRAIN WO CON INDICATIONS: PARALYTIC PTOSIS OF LEFT EYELID TECHNIQUE: Non-contrast axial T1 spin echo, axial T2 fast spin echo, sagittal and axial FLAIR, coronal T2 fast spin echo, axial gradient echo, axial diffusion and ADC through the brain. COMPARISON: [facility], CT, CT HEAD/BRAIN WO CON, 01/12/2018, 17:14. FINDINGS: Image quality: Excellent. CSF spaces: Ventricles appear symmetric in size and shape. Basal cisterns are patent. No extra-axial fluid collections. Brain: No intracranial bleeds or mass effects. There is cerebral volume loss for age. There are periventricular and deep white matter chronic small vessel ischemic changes. Brainstem appears normal. Diffusion-weighted images show no acute ischemic insults. No chronic ischemic insults. Normal intravascular flow voids are present. Skull and face: Calvarial bone marrow is normal in signal. Orbits are normal. Sinuses: Sinuses and mastoids are clear. IMPRESSION: Normal for age, source of current symptoms is not seen. Dictated by: Cristian Blancas M.D. on 01/25/2018 at 8:07 Approved by: Cristian Blancas M.D. on 01/25/2018 at 8:09
== END ==
PROVIDERS: Family Provider Internal Medicine; PCP Internal Medicine; Visit Provider Internal Medicine
DX: H02.432 Paralytic ptosis of left eyelid (principal); F32.9 Major depressive disorder, single episode, unspecified; F41.9 Anxiety disorder, unspecified; Z68.27 Body mass index [BMI] 27.0-27.9, adult
CPT/HCPCS: 70551; 83519; 90792

== ENCOUNTER → 2018-11-28 11:25 | Outpatient (CLI) | payer MEDICARE, OTHER, SELFPAY ==
[2017-07-24 22:32] VITALS: BMI 23.9
--- NOTE | 2018-11-28 | DI.RAD.S_ITS ---
PROCEDURE: XR HIP W PEL IF DONE BILAT 2V INDICATIONS: HIP PAIN TECHNIQUE: AP pelvis with lateral view(s) of the bilateral hip(s). COMPARISON: None. FINDINGS: Bones: No fractures or dislocations. Pelvic ring appears intact. Mild to moderate bilateral hip joint osteoarthritic changes are seen. Degenerative disc disease in visualized lower lumbar spine is seen. No evidence of avascular necrosis of femoral head. No suspicious bony lesions. Soft tissues: The visualized bowel gas pattern is normal. No suspicious soft tissue calcifications. IMPRESSION: Mild to moderate bilateral hip joint osteophyte is. No pelvic or hip fracture. No evidence of avascular necrosis. Degenerative disc disease in visualized lower lumbar spine. Dictated by: Noel Silvestre M.D. on 11/28/2018 at 13:25 Approved by: Noel Silvestre M.D. on 11/28/2018 at 13:26
[2018-11-28 12:41] LABS: Add Manual Diff / Slide Review NO; Basophils Absolute Auto 0 /uL (0-100); Basophils Percent Auto 0.9 % (0-2); Eosinophils Absolute Auto 200 /uL (0-450); Eosinophils Percent Auto 6.6 % (2-4); Hematocrit 32.9 % (36-46); Hemoglobin 11.4 g/dL (12.0-16.0); Lymphocytes Absolute Auto 1100 /uL (1100-4500); Lymphocytes Percent Auto 28.4 % (25-40); Mean Corpuscular HGB Conc 34.5 % (30-36); Mean Corpuscular Hemoglobin 30.9 PG (26-34); Mean Corpuscular Volume 89.7 fL (80-100); Monocytes Absolute Auto 500 /uL (0-900); Monocytes Percent Auto 12.5 % (3-14); Neutrophils Absolute Auto 1900 /uL (1500-7000); Neutrophils Percent Auto 51.6 % (50-75); Platelet Count 265 X10^3/uL (150-400); Red Blood Cell Count 3.67 X10^6/uL (4.0-5.2); Red Cell Distribution Width 13.7 % (11.6-14.8); White Blood Cell Count 3.7 X10^3/uL (4.5-11.0)
[2018-11-28 13:43] LABS: Alanine Aminotransferase 26 IU/L (9-52); Albumin 4.4 g/dL (3.5-5.0); Albumin Globulin Ratio 1.6 (1.0-2.8); Alkaline Phosphatase 61 U/L (38-126); Aspartate Aminotransferase 39 IU/L (14-36); BUN Creatinine Ratio 22.9 (6-22); Bilirubin Total 0.4 mg/dL (0.2-1.3); Blood Urea Nitrogen 16 mg/dL (7-17); Calcium 9.3 mg/dL (8.4-10.2); Carbon Dioxide 33 mmol/L (22-32); Chloride 89 mmol/L (98-107); Estimated Glomerular Filt Rate > 60.0 mL/min (>60); Globulin 2.8 g/dL (1.7-4.1); Glucose 88 mg/dL (80-110); HEMOLYSIS < 15 (0-50); Potassium 3.7 mmol/L (3.4-5.1); Sodium 133 mmol/L (137-145); Total Protein 7.2 g/dL (6.3-8.2)
== END ==
PROVIDERS: PCP Internal Medicine; Visit Provider Internal Medicine
DX: I10 Essential (primary) hypertension (principal); K92.2 Gastrointestinal hemorrhage, unspecified
CPT/HCPCS: 36415; 73521; 80053; 85025

== ENCOUNTER → 2019-01-04 09:03 | Outpatient (CLI) | payer MEDICARE, OTHER, SELFPAY ==
[2017-07-24 22:32] VITALS: BMI 23.9
--- NOTE | 2019-01-04 | DI.MRI.S_ITS ---
PROCEDURE: MR LUMBAR SPINE WO CON INDICATIONS: Lumbago with sciatica, unspecified side TECHNIQUE: Noncontrast sagittal T1 spin echo and T2 fast echo, sagittal STIR, axial T1 and T2 fast spin echo through the lumbar spine. In cases with scoliosis, additional coronal T2 fast spin echo may be performed. COMPARISON: [facility], MR, L-SPINE W&WO CONTRAST, 01/01/2013, 17:20. [facility], CT, CT ABDOMEN PELVIS W CON, 07/24/2017, 18:27. [facility], MR, L-SPINE WITHOUT CONTRAST, 03/26/2009, 15:03. FINDINGS: Image quality: Excellent. Alignment and Curvature: Severe dextroscoliosis Bone Marrow: No acute fracture. Multilevel degenerative endplate sclerosis and spurring. Diffuse facet arthropathy. Spinal Cord: Conus medullaris terminates at the L1-L2 level. Visualized cord demonstrates normal signal and size. Paraspinous Soft Tissues: No paravertebral masses. Presume distended appearance of the gallbladder although technically indeterminate and could be further assessed with ultrasound as clinically necessary. T12-L1: Central canal narrowing with effacement of the posterior and anterior thecal sac. Severe right foraminal stenosis with nerve root compression. No left foraminal narrowing L1-L2: Moderate canal stenosis. Partial effacement of both lateral recesses with bilaterally symmetric appearance. Mild to moderate right foraminal narrowing. Moderate left foraminal stenosis no definite interval change a limited evaluation given scoliosis. L2-L3: Severe canal narrowing, which has progressed since the prior study. Partial effacement of both lateral recesses with bilaterally symmetric appearance. Mild right foraminal narrowing. Moderate left foraminal stenosis, no interval change L3-L4: Mild central canal narrowing. Partial effacement of both lateral recesses with bilaterally symmetric appearance. Severe left foraminal stenosis with nerve root compression. There is also moderate to severe right foraminal narrowing with nerve root compression. No definite interval change L4-L5: Severe central canal narrowing, and near complete effacement of both lateral recesses. Moderate to severe right foraminal narrowing with nerve root compression. Severe left foraminal stenosis with nerve root compression, no definite interval change L5-S1: Severe central canal narrowing. Near-complete effacement of both lateral recesses. Mild left foraminal narrowing. Severe right foraminal stenosis with nerve root compression however no definite interval change IMPRESSION: Severe dextroscoliosis and multilevel lumbar spondylosis and facet arthropathy. Diffuse severe canal and foraminal stenoses as detailed above by spinal level. Dictated by: Marty Silva M.D. on 01/04/2019 at 10:38 Approved by: Marty Silva M.D. on 01/04/2019 at 10:51
== END ==
PROVIDERS: PCP Internal Medicine; Visit Provider Orthopaedic Surgery
DX: M54.40 Lumbago with sciatica, unspecified side (principal); M47.26 Other spondylosis with radiculopathy, lumbar region; M48.061 Spinal stenosis, lumbar region without neurogenic claudication; M48.07 Spinal stenosis, lumbosacral region; M41.9 Scoliosis, unspecified
CPT/HCPCS: 72148

== ENCOUNTER → 2019-02-01 14:09 | Outpatient (CLI) | payer MEDICARE, OTHER, SELFPAY ==
[2017-07-24 22:32] VITALS: BMI 23.9
[2019-02-01 14:41] LABS: Add Manual Diff / Slide Review NO; Basophils Absolute Auto 0 /uL (0-100); Basophils Percent Auto 0.9 % (0-2); Eosinophils Absolute Auto 200 /uL (0-450); Eosinophils Percent Auto 5.8 % (2-4); Hematocrit 29.2 % (36-46); Hemoglobin 9.6 g/dL (12.0-16.0); Lymphocytes Absolute Auto 900 /uL (1100-4500); Lymphocytes Percent Auto 21.9 % (25-40); Monocytes Absolute Auto 400 /uL (0-900); Neutrophils Absolute Auto 2500 /uL (1500-7000); Neutrophils Percent Auto 62.4 % (50-75); Platelet Count 280 X10^3/uL (150-400); Red Blood Cell Count 3.32 X10^6/uL (4.0-5.2); Red Cell Distribution Width 14.5 % (11.6-14.8)
[2019-02-01 15:12] LABS: BUN Creatinine Ratio 26.3 (6-22); Blood Urea Nitrogen 21 mg/dL (7-17); Calcium 9.3 mg/dL (8.4-10.2); Carbon Dioxide 34 mmol/L (22-32); Chloride 96 mmol/L (98-107); Estimated Glomerular Filt Rate > 60.0 mL/min (>60); Glucose 108 mg/dL (80-110); HEMOLYSIS < 15 (0-50); Sodium 138 mmol/L (137-145)
[2019-02-01 15:20] LABS: Potassium 2.8 mmol/L (3.4-5.1)
[2019-02-01 15:45] LABS: TSH w/ Reflex to FT4 0.46 uIU/mL (0.47-4.68)
[2019-02-01 16:11] LABS: Free T4, Direct Thyroxine 0.75 ng/dL (0.78-2.19)
== END ==
PROVIDERS: PCP Internal Medicine; Visit Provider Orthopaedic Surgery
DX: Z01.818 Encounter for other preprocedural examination (principal); I50.32 Chronic diastolic (congestive) heart failure; I10 Essential (primary) hypertension
CPT/HCPCS: 36415; 80048; 84439; 84443; 85025

== ENCOUNTER → 2019-02-22 13:13 | Outpatient (CLI) | payer MEDICARE, OTHER, SELFPAY ==
[2017-07-24 22:32] VITALS: BMI 23.9
[2019-02-22 15:29] LABS: Reticulocyte Count, Percent 0.6 % (1.06-2.63)
[2019-02-22 15:42] LABS: HEMOLYSIS < 15 (0-50); Iron 32 ug/dL (37-170)
[2019-02-22 15:54] LABS: Percent Iron Saturation 7 % (15-50); Total Iron Binding Capacity 484 ug/dL (265-497); Transferrin 403 mg/dL (206-381)
== END ==
PROVIDERS: PCP Internal Medicine; Visit Provider Internal Medicine
DX: D64.9 Anemia, unspecified (principal)
CPT/HCPCS: 36415; 83540; 83550; 85045

== ENCOUNTER → 2019-02-27 15:53 | Outpatient (CLI) | payer MEDICARE, OTHER, SELFPAY ==
[2017-07-24 22:32] VITALS: BMI 23.9
--- NOTE | 2019-02-27 | DI.ECHO.S_ITS ---
[facility]---------+ [facility] +---------+ : : [address] : : : : [id number] : : : : Phone: [phone]+ Echocardiogram Report + + :Name: MOISES DA SILVA Study Date: 02/27/2019 Height: 60 in : :[facility] Weight: 134 lb : : Gender: Female BSA: 1.6 m2 : :: 1940 Age: 79 yrs BP: 148/86 mmHg: :Reason For Study: Chronic diastolic CHF : : Performed By: [facility] Staff : :Referring: SHELLEY LEMONS : + + Interpretation Summary Normal sinus rhythm. Normal LV size, wall thickness, wall motion and LV systolic function. EF is 60-65%. No significant valvular abnormalities. Compared to prior study no changes have occurred. Procedure: A two-dimensional transthoracic echocardiogram with color flow and Doppler was performed. The study quality was technically adequate. Prior echo performed on 12/11/17. The patient was in normal sinus rhythm during the exam. Left Ventricle: The left ventricle is normal in size. There is normal left ventricular wall thickness. Left ventricular systolic function is normal. The ejection fraction is estimated to be 60-65%. Left ventricular wall motion is normal. Right Ventricle: The right ventricle is normal in size and function. Atria: The left atrium is mildly dilated. Right atrium not well visualized. The interatrial septum is intact with no evidence for an atrial septal defect. The atrial septum is aneurysmal. Mitral Valve: The mitral valve is normal in structure and function. There is trace mitral regurgitation. Aortic Valve: The aortic valve is trileaflet. The aortic valve opens well. There is mild aortic regurgitation. Tricuspid Valve: The tricuspid valve is normal in structure and function. There is trace tricuspid regurgitation. The right ventricular systolic pressure is estimated to be at least 26 mmHg based on an estimated right atrial pressure of 3 mm Hg. Pulmonic Valve: The pulmonic valve is not well visualized. Great Vessels: The aortic root is borderline dilated. The ascending aorta could not be visualized. The pulmonary artery is normal size. The IVC is of normal diameter and collapses greater than 50% with a sniff. This suggests a low right atrial pressure of 3 mm Hg. Pericardium/ Pleura There is no pericardial effusion. There is no pleural effusion. MMode/2D Measurements & Calculations LVIDd: 4.0 cm LVOT diam: 2.1 cm LVIDs: 2.6 cm Ao root diam: 3.6 cm FS: 33.7 % EPSS: 0.27 cm IVSd: 0.91 cm LVPWd: 0.85 cm LV moses. diameter/BSA (cm/m^2): 2.5 LV sys. diameter/BSA (cm/m^2): 1.7 LA A2 area: 22.5 cm2 TAPSE: 2.6 cm LA A4 area: 16.4 cm2 LA length (vol): 5.2 cm LA vol: 60.6 ml LA vol index: 38.5 ml/m2 Doppler Measurements & Calculations Ao V2 max: 169.5 cm/sec LVOT Max Anjel: 149.6 cm/sec Ao V2 mean: 112.2 cm/sec LV V1 max P.0 mmHg Ao max P.5 mmHg LV V1 VTI: 33.2 cm Ao mean P.0 mmHg GONZALES(I,D): 3.3 cm2 Ao V2 VTI: 34.8 cm GONZALES(V,D): 3.1 cm2 sev ratio: 0.95 GONZALES indexed to BSA (cm^2/m^2): 2.1 AI P1/2t: 621.2 msec AI dec slope: 228.5 cm/sec2 MV E max anjel: 57.2 cm/sec TR max anjel: 239.8 cm/sec MV A max anjel: 98.6 cm/sec TR max P.0 mmHg MV E/A: 0.58 Med Peak E' Anjel: 5.0 cm/sec E/E' med: 11.6 Lat Peak E' Anjel: 7.9 cm/sec E/E' lat: 7.2 E/e' average: 9.4 MV dec time: 0.27 sec SV(LVOT): 116.6 ml Electronically signed by: Iesha Palacios M.D. on Reading Physician:02/27/2019 06:06 PM
== END ==
PROVIDERS: Family Provider Internal Medicine; PCP Internal Medicine; Visit Provider Internal Medicine
DX: I35.1 Nonrheumatic aortic (valve) insufficiency (principal); I50.32 Chronic diastolic (congestive) heart failure
CPT/HCPCS: 93306

== ENCOUNTER → 2019-03-22 12:53 | Outpatient (CLI) | payer MEDICARE, OTHER, SELFPAY ==
[2017-07-24 22:32] VITALS: BMI 23.9
[2019-03-22 13:18] LABS: Add Manual Diff / Slide Review NO; Basophils Absolute Auto 0 /uL (0-100); Basophils Percent Auto 0.6 % (0-2); Eosinophils Absolute Auto 200 /uL (0-450); Hematocrit 32.5 % (36-46); Hemoglobin 10.9 g/dL (12.0-16.0); Lymphocytes Absolute Auto 900 /uL (1100-4500); Mean Corpuscular HGB Conc 33.6 % (30-36); Mean Corpuscular Hemoglobin 29.3 PG (26-34); Mean Corpuscular Volume 87.3 fL (80-100); Monocytes Absolute Auto 400 /uL (0-900); Monocytes Percent Auto 8.7 % (3-14); Neutrophils Absolute Auto 2900 /uL (1500-7000); Neutrophils Percent Auto 66.7 % (50-75); Platelet Count 254 X10^3/uL (150-400); Red Blood Cell Count 3.72 X10^6/uL (4.0-5.2); White Blood Cell Count 4.3 X10^3/uL (4.5-11.0)
== END ==
PROVIDERS: PCP Internal Medicine; Visit Provider Internal Medicine
DX: D64.9 Anemia, unspecified (principal)
CPT/HCPCS: 36415; 85025

== ENCOUNTER → 2020-01-14 15:47 | Outpatient (CLI) | payer MEDICARE, OTHER, SELFPAY ==
[2017-07-24 22:32] VITALS: BMI 23.9
== END ==
PROVIDERS: PCP Internal Medicine; Visit Provider Physician Assistant
DX: N30.00 Acute cystitis without hematuria (principal)
CPT/HCPCS: 87077; 87086; 87186

== ENCOUNTER 2020-01-16 13:54 | Inpatient (IN) | payer MEDICARE, OTHER, SELFPAY ==
[2017-07-24 22:32] VITALS: BMI 23.9
[2020-01-16] VITALS (21 sets, daily range): BP systolic 79–118; BP diastolic 52–71; PULSE 64–88; RESP 12–24; TEMP 36.4–38.2; O2SAT 94–97; BMI 23.8; BMI 20.7
--- NOTE | 2020-01-16 09:11 | DI.CT.S_ITS ---
PROCEDURE: CT ABDOMEN PELVIS W CON INDICATIONS: sepsis/uti?pyleonephritis? TECHNIQUE: After the administration of intravenous contrast, 5 mm thick sections acquired from the diaphragm to the symphysis. 5 mm coronal and sagittal reformats were acquired. For radiation dose reduction, the following was used: automated exposure control, adjustment of mA and/or kV according to patient size. COMPARISON: [facility], CT, CT ABDOMEN PELVIS W CON, 07/24/2017, 18:27. FINDINGS: Image quality: Excellent. ABDOMEN: Lung bases: Bibasilar consolidations or atelectasis. Heart size is normal. Dett-gl-rcigwzbh coronary artery calcifications. Solid organs: Liver is normal in size and enhancement. Gallbladder is normal . Biliary system is non dilated. Pancreas enhances normally. Spleen is normal in size and enhancement. No adrenal nodules. Kidneys demonstrate normal size and enhancement, without hydronephrosis. Peritoneum and bowel: There is thickening of sigmoid colon and rectum, consistent with colitis. There is a surgical suture in sigmoid colon. Moderate amount of stool in colon. Bowel loops demonstrate normal caliber. No free fluid or air. Nodes and vessels: No retroperitoneal or mesenteric adenopathy by size criteria. Aorta and inferior vena cava are normal in size. Miscellaneous: No ventral hernias. PELVIS: Genitourinary: Bladder wall thickness is normal. Uterus is absent consistent with hysterectomy Miscellaneous: No inguinal hernias or adenopathy. Bones: No suspicious bony lesions. No vertebral body compression fractures. Scoliosis and degenerative changes in lumbar spine. There are old left 11th and 12th rib fractures. IMPRESSION: 1. Thickening of sigmoid colon rectum consistent with colitis. 2. Moderate amount of stool in colon. 3. Bibasilar pneumonia or atelectasis. Dictated by: Rosalinda Worrell M.D. on 01/17/2020 at 9:23 Approved by: Rosalinda Worrell M.D. on 01/17/2020 at 9:30
--- NOTE | 2020-01-16 16:02 | DI.CT.S_ITS ---
PROCEDURE: CT CERVICAL SPINE WO CON INDICATIONS: Fall/injury TECHNIQUE: Noncontrast 3 mm thick sections acquired from the skull base to the T4 level. Sagittal and coronal reformats were then constructed. For radiation dose reduction, the following was used: automated exposure control, adjustment of mA and/or kV according to patient size. COMPARISON: [facility], CT, CT CERVICAL SPINE WO CON, 01/12/2018, 17:15. [facility], CR, CERVICAL SPINE 2 OR 3 VIEWS, 05/09/2017, 15:53. FINDINGS: Image quality: Excellent. Bones: Postsurgical changes compatible with C5-C6 posterior fusion with placement of cerclage wire and bone graft material. No fractures or dislocations. Visualized superior ribs are intact. Spine degenerative disc disease and facet arthropathy. Soft tissues: Prevertebral soft tissues are normal in thickness. No paravertebral hematomas. No apical pneumothoraces. IMPRESSION: No fracture. No acute osseous lesion. If symptoms and/or clinical suspicion for pathology persists, evaluation with MRI may be helpful for further assessment. Dictated by: Jocelyne Still MD, PhD on 01/16/2020 at 16:42 Approved by: Jocelyne Still MD, PhD on 01/16/2020 at 16:49
--- NOTE | 2020-01-16 16:02 | DI.RAD.S_ITS ---
PROCEDURE: XR CHEST 1V INDICATIONS: Fall/injury TECHNIQUE: One view of the chest was acquired. COMPARISON: [facility], CR, XR CHEST 1V, 07/24/2017, 18:22. FINDINGS: Surgical changes and devices: None. Lungs and pleura: Lungs are clear. No pleural effusions or pneumothorax. Mediastinum: Mediastinal contours appear normal. Heart size is enlarged. Bones and chest wall: No suspicious bony lesions. Overlying soft tissues appear unremarkable. IMPRESSION: No acute pulmonary process. Dictated by: Araceli Stone M.D. on 01/16/2020 at 16:24 Approved by: Araceli Stone M.D. on 01/16/2020 at 16:26
--- NOTE | 2020-01-16 16:02 | DI.CT.S_ITS ---
PROCEDURE: CT HEAD/BRAIN WO CON INDICATIONS: Fall/injury TECHNIQUE: Noncontrast 4.5 mm thick angled axial sections acquired from the foramen magnum to the vertex, with coronal and sagittal reformats. For radiation dose reduction, the following was used: automated exposure control, adjustment of mA and/or kV according to patient size. COMPARISON: [facility], CT, CT ANGIO HEAD AND NECK, 01/12/2018, 19:20. [facility], CT, CT HEAD/BRAIN WO CON, 01/12/2018, 17:14. FINDINGS: Image quality: Excellent. CSF spaces: Basal cisterns are patent. No extra-axial fluid collections. The ventricles are symmetric in size and shape. Brain: No intracranial bleeds or masses. There is cerebral volume loss for age, with resultant ventricular and sulcal prominence. There are periventricular and deep white matter chronic small vessel ischemic changes. There is intracranial internal carotid artery and vertebral artery atherosclerosis. Skull and face: Calvarium and visualized facial bones appear intact, without suspicious lesions. Sinuses: Visualized sinuses and mastoids are clear. IMPRESSION: No acute intracranial disease process. Dictated by: Jocelyne Still MD, PhD on 01/16/2020 at 16:39 Approved by: Jocelyne Still MD, PhD on 01/16/2020 at 16:42
--- NOTE | 2020-01-16 16:06 | ED.WEAKNESS ---
HPI - Weakness <Nathan Rea MD - Last Filed: 01/20/20 01:10> General Chief complaint: Weakness Stated complaint: back aches stomach aches weakness Time Seen by Provider: 01/16/20 15:43 Source: patient and family Mode of arrival: Wheelchair Limitations: no limitations History of Present Illness HPI Narrative: Patient here for generalized weakness diarrhea and a fall. states the last 3 days she has no energy. Patient states she does not recall falling today. Has had diarrhea. Patient being treated for UTI. Started Keflex by Dr. Dunn primary care yesterday. No nausea or vomiting. Patient is awake alert oriented self and where she is at. Has small laceration to the mid forehead. Complains of mild left shoulder pain. Complaint: generalized weakness and focal weakness Related Data Home Medications Medication Instructions Recorded Confirmed Benefiber Clear SF (dextrin) 1 packet PO PRN PRN 07/24/17 01/16/20 Restasis 1 drp OPHTHALMIC (EYE) BID 07/24/17 01/16/20 acetaminophen 500 mg PO Q6H PRN 07/24/17 01/16/20 clobetasol 1 applic TOPICAL PRN PRN 07/24/17 01/16/20 donepezil 10 mg PO BEDTIME 07/24/17 01/16/20 estradiol 1 g VAGINAL DIRECTED 07/24/17 01/16/20 fluticasone furoate 1 spray INTRANASAL DAILY 07/24/17 01/16/20 ipratropium bromide 2 spray INTRANASAL BID 07/24/17 01/16/20 lidocaine 1 applic TOPICAL PRN PRN 07/24/17 01/16/20 memantine 10 mg PO BID 07/24/17 01/16/20 mesalamine 2 tab PO DAILY 07/24/17 01/16/20 nystatin 1 applic TOPICAL BID 07/24/17 01/16/20 duloxetine 30 mg PO TID 01/12/18 01/16/20 Previous Rx's Medication Instructions Recorded erenumab-aooe 70 mg/mL 140 mg SUBCUT QMONTH #2 ml 03/22/18 subcutaneous auto-injector erenumab-aooe 140 mg/mL 140 mg SUBCUT QMONTH #1 ml 11/13/18 subcutaneous auto-injector sumatriptan succinate 100 mg tablet See Rx Instructions PO .COMPLEX 12/17/18 #10 tab pregabalin 100 mg capsule 100 mg PO BID #12 cap 03/14/19 pregabalin 100 mg capsule 100 mg PO BID #60 cap 05/07/19 docusate sodium [Colace] 100 mg PO BEDTIME #30 cap 01/19/20 hydrocortisone acetate [Anusol-HC] 1 supp MI PRN PRN #0 pkg 01/19/20 levofloxacin 250 mg PO Q24H 3 Days #3 tab 01/19/20 trazodone 150 mg PO BEDTIME #15 tab 01/19/20 Allergies Allergy/AdvReac Type Severity Reaction Status Date / Time baclofen [BACLOFEN] Allergy Unknown Verified 01/14/20 13:49 cyclobenzaprine Allergy Unknown Verified 01/14/20 13:49 [From FLEXERIL] nortriptyline [NORTRIPTYLINE] Allergy Unknown Verified 01/14/20 13:49 Sulfa (Sulfonamide AdvReac Mild vomiting Verified 01/14/20 13:49 Antibiotics) [SULFA (SULFONAMIDE ANTIBIOTICS)] pantoprazole [From PROTONIX] AdvReac Unknown NAUSEA/DIAR Verified 01/14/20 13:49 SEAN Review of Systems <Nathan Rea MD - Last Filed: 01/20/20 01:10> Review of Systems Narrative: GENERAL: Complains chills, fatigue, malaise, fever, sweats. HEENT: Denies sinus pain, ear pain, sore throat, difficulty swallowing RESPIRATORY: Denies dyspnea, cough CARDIOVASCULAR: Denies chest pain, palpitations, edema, GASTROINTESTINAL: Denies nausea, vomiting, abdominal pain, complains diarrhea, denies constipation, melena. : Denies dysuria, frequency, hematuria MUSCULOSKELETAL: Complains muscle or bony pain SKIN: Denies rash, skin lesions NEUROLOGIC: Denies weakness, headache, numbness, change in speech, confusion PSYCHIATRIC: No SI or HI or hallucinations ROS Unobtainable: All systems reviewed & are unremarkable except as noted in HPI and below Patient History <Nathan Rea MD - Last Filed: 01/20/20 01:10> Medical History Anxiety (Acute) Chronic pain syndrome (Acute) Chronic rectal pain (Acute) Degenerative arthritis (Acute) Dementia (Acute) Depression (Acute) History of femur fracture (Acute) Hypertension (Acute) Irritable bowel syndrome (IBS) (Acute) Migraine (Acute) Peptic ulcer hemorrhage (Acute) Spinal stenosis (Acute) Surgical History H/O: hysterectomy (Acute) History of appendectomy (Acute) Social History household members: spouse caregiver/support person: Yes other: She drinks about 2 alcoholic beverages a week. No cigarette smoking Smoking Status: Never smoker Smoking Status: Never smoker alcohol intake frequency: a few times a month Substance Use Type: does not use Exam <Nathan Rea MD - Last Filed: 01/20/20 01:10> Narrative Exam Narrative: GENERAL: patient appears stated age. Well-nourished, well-developed patient, in no distress, not toxic not dyspneic HEAD: Normocephalic. There is a small 5 mm superficial laceration at mid forehead. No crepitus or step-off or tenderness. No active bleeding. Based visualized. No bone or muscle injury seen. EYES: Pupils equal round and reactive. No scleral icterus. No injection no discharge ENT: Mucous membranes moist. No drooling no tongue elevation no trismus no malocclusion NECK: Trachea midline. Non tender, no midline tenderness or step-off. CARDIOVASCULAR: Regular rate and rhythm without murmurs, gallops, or rubs. RESPIRATORY: Clear to auscultation. Breath sounds equal bilaterally. No wheezes, rales, or rhonchi. GASTROINTESTINAL: Abdomen soft, non-tender, nondistended. EXTREMITIES: No gross deformities. BACK: Nontender without deformity or crepitance. No flank tenderness. No skin injury. No midline tenderness or step-off. No rib tenderness. NEURO: AOx3. Clear speech no facial droop light touch intact to bilateral face hands and legs. Strong equal senior medical writer. SKIN: Warm and dry PSYCH: Not anxious, is cooperative Initial Vital Signs Initial Vital Signs: Vital Signs Temperature 97.9 F 01/16/20 14:05 Respiratory Rate 18 01/16/20 14:05 Blood Pressure 104/57 L 01/16/20 14:05 <Yan Quintana DO - Last Filed: 01/17/20 03:36> Initial Vital Signs Initial Vital Signs: Vital Signs Temperature 97.9 F 01/16/20 14:05 Respiratory Rate 18 01/16/20 14:05 Blood Pressure 104/57 L 01/16/20 14:05 Procedures <Nathan Rea MD - Last Filed: 01/20/20 01:10> Laceration Repair Laceration 1: Site: face Size (cm): 0.5 Description: linear Depth: simple, single layer Pre-repair: wound explored and irrigated extensively Skin layer closed with: dermabond (As well as Steri-Strips) Course <Nathan Rea MD - Last Filed: 01/20/20 01:10> Course Course Narrative: History taken from patient as well as . Time 6:23 p.m.. Sign out to Dr. quintana... Awaiting call back from hospitalist for admit Decision to Admit Date: 01/16/20 Decision to Admit time: 17:40 Orders Ordered: Discontinued Medications Acetaminophen (Tylenol) 650 mg PO NOW ONE Stop: 01/16/20 16:01 Last Admin: 01/16/20 16:13 Dose: 650 mg Documented by: MOISES Acetaminophen (Tylenol) 650 mg PO Q6HR PRN PRN Reason: Fever/Mild Pain (1-3) Last Admin: 01/18/20 11:17 Dose: 650 mg Documented by: Admin: 01/18/20 05:20 Dose: 650 mg Documented by: KAMERON Amlodipine Besylate (Norvasc) 10 mg PO QPM [facility] Last Admin: 01/17/20 16:27 Dose: Not Given Documented by: WILBERT Chlorthalidone (Hygroton) 12.5 mg PO DAILY [facility] Last Admin: 01/17/20 09:15 Dose: Not Given Documented by: ARMIN Diphtheria/Tetanus/Acell Pertussis (Adacel) 0.5 ml IM .ONCE ONE Stop: 01/16/20 18:31 Last Admin: 01/16/20 18:25 Dose: 0.5 ml Documented by: MOISES Donepezil HCl (Aricept) 10 mg PO BEDTIME [facility] Last Admin: 01/18/20 21:12 Dose: 10 mg Documented by: Admin: 01/17/20 20:30 Dose: 10 mg Documented by: Admin: 01/17/20 00:43 Dose: 10 mg Documented by: NADER Duloxetine HCl (Cymbalta) 30 mg PO TID [facility] Last Admin: 01/19/20 09:55 Dose: 30 mg Documented by: Admin: 01/18/20 21:11 Dose: 30 mg Documented by: Admin: 01/18/20 16:33 Dose: 30 mg Documented by: Admin: 01/18/20 10:05 Dose: 30 mg Documented by: Admin: 01/17/20 20:27 Dose: 30 mg Documented by: Admin: 01/17/20 16:27 Dose: 30 mg Documented by: Admin: 01/17/20 09:30 Dose: 30 mg Documented by: Admin: 01/17/20 00:30 Dose: 30 mg Documented by: NADER Furosemide (Lasix) 40 mg PO DAILY [facility] Admin: 01/17/20 09:31 Dose: Not Given Documented by: ARMIN Heparin Sodium (Porcine) (Heparin) 5,000 unit SUBCUT BID [facility] Admin: 01/19/20 09:55 Dose: 5,000 unit Documented by: Admin: 01/18/20 21:11 Dose: 5,000 unit Documented by: Admin: 01/18/20 10:06 Dose: 5,000 unit Documented by: Admin: 01/17/20 20:27 Dose: 5,000 unit Documented by: Admin: 01/17/20 09:31 Dose: 5,000 unit Documented by: Admin: 01/16/20 23:47 Dose: 5,000 unit Documented by: NADER Sodium Chloride (Normal Saline 0.9%) 1,000 mls @ 1,000 mls/hr IV BOLUS ONE Stop: 01/16/20 16:59 Last Infusion: 01/16/20 17:45 Dose: 0 mls/hr Documented by: Admin: 01/16/20 16:16 Dose: 1,000 mls/hr Documented by: MOISES Potassium Chloride 40 meq/ (Sodium Chloride) 520 mls @ 130 mls/hr IV NOW ONE Stop: 01/16/20 21:34 Last Infusion: 01/16/20 20:51 Dose: 0 mls/hr Documented by: AVA Cosigned by: MINOO Admin: 01/16/20 17:41 Dose: 130 mls/hr Documented by: MOISES Cosigned by: ASHER Sodium Chloride (Normal Saline 0.9%) 1,000 mls @ 1,000 mls/hr IV BOLUS ONE Stop: 01/16/20 18:43 Last Infusion: 01/16/20 20:07 Dose: 0 mls/hr Documented by: Admin: 01/16/20 17:46 Dose: 1,000 mls/hr Documented by: MOISES Lactated Ringer's (Lactated Ringers) 1,000 mls @ 150 mls/hr IV CONT [facility] Last Infusion: 01/17/20 09:00 Dose: 0 mls/hr Documented by: Admin: 01/16/20 23:44 Dose: 150 mls/hr Documented by: NADER Piperacillin/Tazobactam/Dextrose (Zosyn) 3.375 gm in 50 mls @ 100 mls/hr IV Q6H [facility] Last Admin: 01/17/20 16:29 Dose: 100 mls/hr Documented by: Infusion: 01/17/20 13:00 Dose: 0 mls/hr Documented by: Admin: 01/17/20 12:29 Dose: 100 mls/hr Documented by: Infusion: 01/17/20 06:40 Dose: 0 mls/hr Documented by: Admin: 01/17/20 05:30 Dose: 100 mls/hr Documented by: Infusion: 01/17/20 00:52 Dose: 0 mls/hr Documented by: Admin: 01/16/20 23:45 Dose: 100 mls/hr Documented by: NADER Potassium Chloride 40 meq/ (Sodium Chloride) 520 mls @ 130 mls/hr IV NOW ONE Stop: 01/17/20 04:09 Last Infusion: 01/17/20 07:00 Dose: 0 mls/hr Documented by: ARMIN Cosigned by: ALISHA Admin: 01/17/20 00:33 Dose: 130 mls/hr Documented by: NADER Cosigned by: DELMY Ceftriaxone Sodium/Dextrose (Rocephin) 1 gm in 50 mls @ 100 mls/hr IV Q24H [facility] Last Infusion: 01/18/20 23:00 Dose: 0 mls/hr Documented by: Admin: 01/18/20 18:52 Dose: 100 mls/hr Documented by: Infusion: 01/17/20 23:00 Dose: 0 mls/hr Documented by: Admin: 01/17/20 20:28 Dose: 100 mls/hr Documented by: WILBERT Potassium Chloride 30 meq/ (Sodium Chloride) 265 mls @ 88.333 mls/hr IV Q3H [facility] Stop: 01/19/20 00:45 Last Infusion: 01/19/20 06:02 Dose: 0 mls/hr Documented by: KAMERON Cosigned by: VICTOR HUGO Admin: 01/19/20 00:04 Dose: 88.333 mls/hr Documented by: KAMERON Cosigned by: VICTOR HUGO Infusion: 01/18/20 23:03 Dose: 88.333 mls/hr Documented by: KAMERON Cosigned by: VICTOR HUGO Admin: 01/18/20 20:02 Dose: 88.333 mls/hr Documented by: WILBERT Cosigned by: OSEASART Losartan Potassium (Cozaar) 50 mg PO DAILY [facility] Last Admin: 01/17/20 09:56 Dose: Not Given Documented by: ARMIN Memantine (Namenda) 10 mg PO BID [facility] Last Admin: 01/19/20 09:54 Dose: 10 mg Documented by: Admin: 01/18/20 21:12 Dose: 10 mg Documented by: Admin: 01/18/20 10:06 Dose: 10 mg Documented by: Admin: 01/17/20 20:31 Dose: 10 mg Documented by: Admin: 01/17/20 10:14 Dose: 10 mg Documented by: Admin: 01/17/20 01:33 Dose: Not Given Documented by: NADER Naloxone HCl (Narcan) 0.2 mg IV Q2MIN PRN PRN Reason: Opiate Reversal Non-Formulary Medication (Cyclosporine [Restasis]) 1 drop EYE-BOTH BID [facility] Last Admin: 01/19/20 09:54 Dose: 1 drop Documented by: Admin: 01/18/20 21:12 Dose: 1 drop Documented by: Admin: 01/18/20 10:05 Dose: 1 drop Documented by: Admin: 01/17/20 20:39 Dose: Not Given Documented by: Admin: 01/17/20 14:35 Dose: Not Given Documented by: ARMIN Non-Formulary Medication (Wheat Dextrin [Benefiber Clear Sf (Dextrin)]) 1 packet PO PRN PRN PRN Reason: Constipation Non-Formulary Medication (Mesalamine) 2 tab PO DAILY [facility] Admin: 01/19/20 10:03 Dose: Not Given Documented by: Admin: 01/18/20 10:06 Dose: 2 tab Documented by: Admin: 01/17/20 14:35 Dose: Not Given Documented by: ARMIN Ondansetron HCl (Zofran Odt) 4 mg PO Q8HR PRN PRN Reason: Nausea And Vomiting Potassium Chloride (Klor-Con M20) 40 meq PO NOW ONE Stop: 01/17/20 00:11 Last Admin: 01/17/20 00:30 Dose: 40 meq Documented by: NADER Pregabalin (Lyrica) 100 mg PO BID [facility] Last Admin: 01/19/20 10:03 Dose: 100 mg Documented by: Admin: 01/18/20 21:11 Dose: 100 mg Documented by: Admin: 01/18/20 10:06 Dose: 100 mg Documented by: Admin: 01/17/20 20:27 Dose: 100 mg Documented by: Admin: 01/17/20 09:31 Dose: 100 mg Documented by: Admin: 01/17/20 00:30 Dose: 100 mg Documented by: NADER Sodium Chloride (Normal Saline 0.9% Flush) 10 ml IV PRN PRN PRN Reason: Flush Sodium Chloride (Normal Saline 0.9% Flush) 10 ml IV BID [facility] Last Admin: 01/19/20 10:05 Dose: 10 ml Documented by: Admin: 01/18/20 21:18 Dose: 10 ml Documented by: Admin: 01/18/20 10:07 Dose: 10 ml Documented by: IVÁN Sumatriptan Succinate (Imitrex) 100 mg PO .COMPLEX [facility] Tramadol HCl (Ultram) 50 mg PO BID PRN PRN Reason: pain Trazodone HCl (Desyrel) 150 mg PO BEDTIME [facility] Last Admin: 01/18/20 21:11 Dose: 150 mg Documented by: Admin: 01/17/20 20:27 Dose: 150 mg Documented by: Admin: 01/17/20 00:29 Dose: 150 mg Documented by: NADER Reevaluation(s) Reevaluation #1: No new complaints by patient. Patient is drinking water at this time. No altered mental status Time: 17:40 Vital Signs Vital signs: Vital Signs - 8 hr 01/16/20 20:00 Pulse Rate 70 Respiratory Rate 18 Blood Pressure 111/60 Pulse Oximetry 94 <Yan Quintana DO - Last Filed: 01/17/20 03:36> Course Course Narrative: Patient received in sign-out from Dr. Rea. We are currently awaiting call back from hospitalist. I have no significant additions after performing an independent history and physical. Orders Ordered: Discontinued Medications Acetaminophen (Tylenol) 650 mg PO NOW ONE Stop: 01/16/20 16:01 Last Admin: 01/16/20 16:13 Dose: 650 mg Documented by: MOISES Acetaminophen (Tylenol) 650 mg PO Q6HR PRN PRN Reason: Fever/Mild Pain (1-3) Last Admin: 01/18/20 11:17 Dose: 650 mg Documented by: Admin: 01/18/20 05:20 Dose: 650 mg Documented by: KAMERON Amlodipine Besylate (Norvasc) 10 mg PO QPM [facility] Last Admin: 01/17/20 16:27 Dose: Not Given Documented by: WILBERT Chlorthalidone (Hygroton) 12.5 mg PO DAILY [facility] Last Admin: 01/17/20 09:15 Dose: Not Given Documented by: ARMIN Diphtheria/Tetanus/Acell Pertussis (Adacel) 0.5 ml IM .ONCE ONE Stop: 01/16/20 18:31 Last Admin: 01/16/20 18:25 Dose: 0.5 ml Documented by: MOISES Donepezil HCl (Aricept) 10 mg PO BEDTIME [facility] Last Admin: 01/18/20 21:12 Dose: 10 mg Documented by: Admin: 01/17/20 20:30 Dose: 10 mg Documented by: Admin: 01/17/20 00:43 Dose: 10 mg Documented by: NADER Duloxetine HCl (Cymbalta) 30 mg PO TID [facility] Last Admin: 01/19/20 09:55 Dose: 30 mg Documented by: Admin: 01/18/20 21:11 Dose: 30 mg Documented by: Admin: 01/18/20 16:33 Dose: 30 mg Documented by: Admin: 01/18/20 10:05 Dose: 30 mg Documented by: Admin: 01/17/20 20:27 Dose: 30 mg Documented by: Admin: 01/17/20 16:27 Dose: 30 mg Documented by: Admin: 01/17/20 09:30 Dose: 30 mg Documented by: Admin: 01/17/20 00:30 Dose: 30 mg Documented by: NADER Furosemide (Lasix) 40 mg PO DAILY [facility] Last Admin: 01/17/20 09:31 Dose: Not Given Documented by: ARMIN Heparin Sodium (Porcine) (Heparin) 5,000 unit SUBCUT BID [facility] Last Admin: 01/19/20 09:55 Dose: 5,000 unit Documented by: Admin: 01/18/20 21:11 Dose: 5,000 unit Documented by: Admin: 01/18/20 10:06 Dose: 5,000 unit Documented by: Admin: 01/17/20 20:27 Dose: 5,000 unit Documented by: Admin: 01/17/20 09:31 Dose: 5,000 unit Documented by: Admin: 01/16/20 23:47 Dose: 5,000 unit Documented by: NADER Sodium Chloride (Normal Saline 0.9%) 1,000 mls @ 1,000 mls/hr IV BOLUS ONE Stop: 01/16/20 16:59 Last Infusion: 01/16/20 17:45 Dose: 0 mls/hr Documented by: Admin: 01/16/20 16:16 Dose: 1,000 mls/hr Documented by: MOISES Potassium Chloride 40 meq/ (Sodium Chloride) 520 mls @ 130 mls/hr IV NOW ONE Stop: 01/16/20 21:34 Last Infusion: 01/16/20 20:51 Dose: 0 mls/hr Documented by: AVA Cosigned by: MINOO Admin: 01/16/20 17:41 Dose: 130 mls/hr Documented by: MOISES Cosigned by: ASHER Sodium Chloride (Normal Saline 0.9%) 1,000 mls @ 1,000 mls/hr IV BOLUS ONE Stop: 01/16/20 18:43 Last Infusion: 01/16/20 20:07 Dose: 0 mls/hr Documented by: Admin: 01/16/20 17:46 Dose: 1,000 mls/hr Documented by: MOISES Lactated Ringer's (Lactated Ringers) 1,000 mls @ 150 mls/hr IV CONT [facility] Last Infusion: 01/17/20 09:00 Dose: 0 mls/hr Documented by: Admin: 01/16/20 23:44 Dose: 150 mls/hr Documented by: NADER Piperacillin/Tazobactam/Dextrose (Zosyn) 3.375 gm in 50 mls @ 100 mls/hr IV Q6H [facility] Last Admin: 01/17/20 16:29 Dose: 100 mls/hr Documented by: Infusion: 01/17/20 13:00 Dose: 0 mls/hr Documented by: Admin: 01/17/20 12:29 Dose: 100 mls/hr Documented by: Infusion: 01/17/20 06:40 Dose: 0 mls/hr Documented by: Admin: 01/17/20 05:30 Dose: 100 mls/hr Documented by: Infusion: 01/17/20 00:52 Dose: 0 mls/hr Documented by: Admin: 01/16/20 23:45 Dose: 100 mls/hr Documented by: NADER Potassium Chloride 40 meq/ (Sodium Chloride) 520 mls @ 130 mls/hr IV NOW ONE Stop: 01/17/20 04:09 Last Infusion: 01/17/20 07:00 Dose: 0 mls/hr Documented by: ARMIN Cosigned by: ALISHA Admin: 01/17/20 00:33 Dose: 130 mls/hr Documented by: NADER Cosigned by: DELMY Ceftriaxone Sodium/Dextrose (Rocephin) 1 gm in 50 mls @ 100 mls/hr IV Q24H [facility] Last Infusion: 01/18/20 23:00 Dose: 0 mls/hr Documented by: Admin: 01/18/20 18:52 Dose: 100 mls/hr Documented by: Infusion: 01/17/20 23:00 Dose: 0 mls/hr Documented by: Admin: 01/17/20 20:28 Dose: 100 mls/hr Documented by: WILBERT Potassium Chloride 30 meq/ (Sodium Chloride) 265 mls @ 88.333 mls/hr IV Q3H [facility] Stop: 01/19/20 00:45 Last Infusion: 01/19/20 06:02 Dose: 0 mls/hr Documented by: KAMERON Cosigned by: VICTOR HUGO Admin: 01/19/20 00:04 Dose: 88.333 mls/hr Documented by: CTRMARTA Cosigned by: VICTOR HUGO Infusion: 01/18/20 23:03 Dose: 88.333 mls/hr Documented by: KAMERON Cosigned by: VICTOR HUGO Admin: 01/18/20 20:02 Dose: 88.333 mls/hr Documented by: WILBERT Cosigned by: RAMIREZ Losartan Potassium (Cozaar) 50 mg PO DAILY [facility] Last Admin: 01/17/20 09:56 Dose: Not Given Documented by: ARMIN Memantine (Namenda) 10 mg PO BID [facility] Last Admin: 01/19/20 09:54 Dose: 10 mg Documented by: Admin: 01/18/20 21:12 Dose: 10 mg Documented by: Admin: 01/18/20 10:06 Dose: 10 mg Documented by: Admin: 01/17/20 20:31 Dose: 10 mg Documented by: Admin: 01/17/20 10:14 Dose: 10 mg Documented by: Admin: 01/17/20 01:33 Dose: Not Given Documented by: NADER Naloxone HCl (Narcan) 0.2 mg IV Q2MIN PRN PRN Reason: Opiate Reversal Non-Formulary Medication (Cyclosporine [Restasis]) 1 drop EYE-BOTH BID [facility] Last Admin: 01/19/20 09:54 Dose: 1 drop Documented by: Admin: 01/18/20 21:12 Dose: 1 drop Documented by: Admin: 01/18/20 10:05 Dose: 1 drop Documented by: Admin: 01/17/20 20:39 Dose: Not Given Documented by: Admin: 01/17/20 14:35 Dose: Not Given Documented by: ARMIN Non-Formulary Medication (Wheat Dextrin [Benefiber Clear Sf (Dextrin)]) 1 packet PO PRN PRN PRN Reason: Constipation Non-Formulary Medication (Mesalamine) 2 tab PO DAILY [facility] Last Admin: 01/19/20 10:03 Dose: Not Given Documented by: Admin: 01/18/20 10:06 Dose: 2 tab Documented by: Admin: 01/17/20 14:35 Dose: Not Given Documented by: ARMIN Ondansetron HCl (Zofran Odt) 4 mg PO Q8HR PRN PRN Reason: Nausea And Vomiting Potassium Chloride (Klor-Con M20) 40 meq PO NOW ONE Stop: 01/17/20 00:11 Last Admin: 01/17/20 00:30 Dose: 40 meq Documented by: NADER Pregabalin (Lyrica) 100 mg PO BID [facility] Last Admin: 01/19/20 10:03 Dose: 100 mg Documented by: Admin: 01/18/20 21:11 Dose: 100 mg Documented by: Admin: 01/18/20 10:06 Dose: 100 mg Documented by: Admin: 01/17/20 20:27 Dose: 100 mg Documented by: Admin: 01/17/20 09:31 Dose: 100 mg Documented by: Admin: 01/17/20 00:30 Dose: 100 mg Documented by: NADER Sodium Chloride (Normal Saline 0.9% Flush) 10 ml IV PRN PRN PRN Reason: Flush Sodium Chloride (Normal Saline 0.9% Flush) 10 ml IV BID [facility] Last Admin: 01/19/20 10:05 Dose: 10 ml Documented by: Admin: 01/18/20 21:18 Dose: 10 ml Documented by: Admin: 01/18/20 10:07 Dose: 10 ml Documented by: IVÁN Sumatriptan Succinate (Imitrex) 100 mg PO .COMPLEX [facility] Tramadol HCl (Ultram) 50 mg PO BID PRN PRN Reason: pain Trazodone HCl (Desyrel) 150 mg PO BEDTIME [facility] Last Admin: 01/18/20 21:11 Dose: 150 mg Documented by: Admin: 01/17/20 20:27 Dose: 150 mg Documented by: Admin: 01/17/20 00:29 Dose: 150 mg Documented by: NADER Vital Signs Vital signs: Vital Signs - 8 hr 01/16/20 20:00 Pulse Rate 70 Respiratory Rate 18 Blood Pressure 111/60 Pulse Oximetry 94 MDM - Weakness <Nathan Rea MD - Last Filed: 01/20/20 01:10> Differential Diagnosis Differential diagnosis: Likely sepsis, dehydration and other (Sepsis/UTI/pneumonia/viral syndrome) Lab Data Attestation: I reviewed the patient's lab results. Result diagrams: 01/16/20 23:43 01/19/20 04:20 Labs: Lab Results 01/16/20 01/16/20 01/16/20 Range/Units 16:00 16:00 16:00 WBC (4.5-11.0) X10^3/uL RBC (4.0-5.2) X10^6/uL Hgb (12.0-16.0) g/dL Hct (36-46) % MCV (80-100) fL MCH (26-34) PG MCHC (30-36) % RDW (11.6-14.8) % Plt Count (150-400) X10^3/uL Neut % (Auto) (50-75) % Lymph % (Auto) (25-40) % [place] % (Auto) (3-14) % Eos % (Auto) (2-4) % Baso % (Auto) (0-2) % Neut # (Auto) (8328-7610) /uL Lymph # (Auto) (6431-4999) /uL [place] # (Auto) (0-900) /uL Eos # (Auto) (0-450) /uL Baso # (Auto) (0-100) /uL PT 14.0 H (10.1-12.7) SECONDS INR 1.2 (0.9-1.3) Sodium (137-145) mmol/L Potassium (3.4-5.1) mmol/L Chloride (98-107) mmol/L Carbon Dioxide (22-32) mmol/L BUN (7-17) mg/dL Creatinine (0.52-1.04) mg/dL Estimated GFR (>60) mL/min BUN/Creatinine Ratio (6-22) Glucose (80-110) mg/dL Lactate 2.0 (0.7-2.1) mmol/L Calcium (8.4-10.2) mg/dL Magnesium (1.6-2.3) mg/dL Total Bilirubin (0.2-1.3) mg/dL AST (14-36) IU/L ALT (<35) IU/L Alkaline Phosphatase (38-126) U/L Total Creatine Kinase (30-135) U/L CK-MB (CK-2) CK-MB (CK-2) Rel Index Troponin I (0.01-0.034) ng/mL Total Protein (6.3-8.2) g/dL Albumin (3.5-5.0) g/dL Globulin (1.7-4.1) g/dL Albumin/Globulin Ratio (1.0-2.8) Procalcitonin 0.35 (<0.5) ng/mL Chlamy pneumoniae PCR (Not Detect) Adenovirus (PCR) (Not Detect) B.parapertussis DNA PCR (Not Detect) Coronavirus OC43 (PCR) (Not Detect) Coronavirus HKU1 (PCR) (Not Detect) Coronavirus 229E (PCR) (Not Detect) COVID-19 PCR (Negative) Coronavirus NL63 (PCR) (Not Detect) Human Metapneumovir PCR (Not Detect) Influenza Type A (PCR) (Not Detect) Influenza Type B (PCR) (Not Detect) M. pneumoniae (PCR) (Not Detect) Parainfluenza 1 (PCR) (Not Detect) Parainfluenza 2 (PCR) (Not Detect) Parainfluenza 3 (PCR) (Not Detect) Parainfluenza 4 (PCR) (Not Detect) RSV (PCR) (Not Detect) Entero/Rhino (PCR) (Not Detect) 01/16/20 01/16/20 01/16/20 Range/Units 16:00 16:00 16:00 WBC 12.4 H (4.5-11.0) X10^3/uL RBC 3.89 L (4.0-5.2) X10^6/uL Hgb 11.6 L (12.0-16.0) g/dL Hct 35.4 L (36-46) % MCV 90.8 (80-100) fL MCH 29.8 (26-34) PG MCHC 32.9 (30-36) % RDW 13.7 (11.6-14.8) % Plt Count 312 (150-400) X10^3/uL Neut % (Auto) 89.4 H (50-75) % Lymph % (Auto) 3.1 L (25-40) % [place] % (Auto) 7.2 (3-14) % Eos % (Auto) 0.0 L (2-4) % Baso % (Auto) 0.3 (0-2) % Neut # (Auto) 98905 H (5244-7258) /uL Lymph # (Auto) 400 L (0234-9496) /uL [place] # (Auto) 900 (0-900) /uL Eos # (Auto) 0 (0-450) /uL Baso # (Auto) 0 (0-100) /uL PT (10.1-12.7) SECONDS INR (0.9-1.3) Sodium 141 (137-145) mmol/L Potassium 2.4 L* (3.4-5.1) mmol/L Chloride 94 L (98-107) mmol/L Carbon Dioxide 39 H (22-32) mmol/L BUN 55 H (7-17) mg/dL Creatinine 1.25 H (0.52-1.04) mg/dL Estimated GFR 41.6 L (>60) mL/min BUN/Creatinine Ratio 44.0 H (6-22) Glucose 157 H (80-110) mg/dL Lactate (0.7-2.1) mmol/L Calcium 9.5 (8.4-10.2) mg/dL Magnesium 2.4 H (1.6-2.3) mg/dL Total Bilirubin 0.8 (0.2-1.3) mg/dL AST 27 (14-36) IU/L ALT 20 (<35) IU/L Alkaline Phosphatase 80 (38-126) U/L Total Creatine Kinase 51 (30-135) U/L CK-MB (CK-2) TNP CK-MB (CK-2) Rel Index TNP Troponin I 0.022 (0.01-0.034) ng/mL Total Protein 8.1 (6.3-8.2) g/dL Albumin 4.2 (3.5-5.0) g/dL Globulin 3.9 (1.7-4.1) g/dL Albumin/Globulin Ratio 1.1 (1.0-2.8) Procalcitonin (<0.5) ng/mL Chlamy pneumoniae PCR (Not Detect) Adenovirus (PCR) (Not Detect) B.parapertussis DNA PCR (Not Detect) Coronavirus OC43 (PCR) (Not Detect) Coronavirus HKU1 (PCR) (Not Detect) Coronavirus 229E (PCR) (Not Detect) COVID-19 PCR (Negative) Coronavirus NL63 (PCR) (Not Detect) Human Metapneumovir PCR (Not Detect) Influenza Type A (PCR) (Not Detect) Influenza Type B (PCR) (Not Detect) M. pneumoniae (PCR) (Not Detect) Parainfluenza 1 (PCR) (Not Detect) Parainfluenza 2 (PCR) (Not Detect) Parainfluenza 3 (PCR) (Not Detect) Parainfluenza 4 (PCR) (Not Detect) RSV (PCR) (Not Detect) Entero/Rhino (PCR) (Not Detect) 01/16/20 01/16/20 01/16/20 Range/Units 16:20 18:15 18:22 WBC (4.5-11.0) X10^3/uL RBC (4.0-5.2) X10^6/uL Hgb (12.0-16.0) g/dL Hct (36-46) % MCV (80-100) fL MCH (26-34) PG MCHC (30-36) % RDW (11.6-14.8) % Plt Count (150-400) X10^3/uL Neut % (Auto) (50-75) % Lymph % (Auto) (25-40) % [place] % (Auto) (3-14) % Eos % (Auto) (2-4) % Baso % (Auto) (0-2) % Neut # (Auto) (2143-0030) /uL Lymph # (Auto) (4645-5069) /uL [place] # (Auto) (0-900) /uL Eos # (Auto) (0-450) /uL Baso # (Auto) (0-100) /uL PT (10.1-12.7) SECONDS INR (0.9-1.3) Sodium (137-145) mmol/L Potassium (3.4-5.1) mmol/L Chloride (98-107) mmol/L Carbon Dioxide (22-32) mmol/L BUN (7-17) mg/dL Creatinine (0.52-1.04) mg/dL Estimated GFR (>60) mL/min BUN/Creatinine Ratio (6-22) Glucose (80-110) mg/dL Lactate 0.8 (0.7-2.1) mmol/L Calcium (8.4-10.2) mg/dL Magnesium (1.6-2.3) mg/dL Total Bilirubin (0.2-1.3) mg/dL AST (14-36) IU/L ALT (<35) IU/L Alkaline Phosphatase (38-126) U/L Total Creatine Kinase (30-135) U/L CK-MB (CK-2) CK-MB (CK-2) Rel Index Troponin I (0.01-0.034) ng/mL Total Protein (6.3-8.2) g/dL Albumin (3.5-5.0) g/dL Globulin (1.7-4.1) g/dL Albumin/Globulin Ratio (1.0-2.8) Procalcitonin (<0.5) ng/mL Chlamy pneumoniae PCR Not detected (Not Detect) Adenovirus (PCR) Not detected (Not Detect) B.parapertussis DNA PCR Not detected (Not Detect) Coronavirus OC43 (PCR) Not detected (Not Detect) Coronavirus HKU1 (PCR) Not detected (Not Detect) Coronavirus 229E (PCR) Not detected (Not Detect) COVID-19 PCR Negative (Negative) Coronavirus NL63 (PCR) Not detected (Not Detect) Human Metapneumovir PCR Not detected (Not Detect) Influenza Type A (PCR) Not detected (Not Detect) Influenza Type B (PCR) Not detected (Not Detect) M. pneumoniae (PCR) Not detected (Not Detect) Parainfluenza 1 (PCR) Not detected (Not Detect) Parainfluenza 2 (PCR) Not detected (Not Detect) Parainfluenza 3 (PCR) Not detected (Not Detect) Parainfluenza 4 (PCR) Not detected (Not Detect) RSV (PCR) Not detected (Not Detect) Entero/Rhino (PCR) Not detected (Not Detect) Urine Dip Bedside Urine Glucose Negative Bedside Urine Bilirubin - Negative Bedside Urine Ketone - Negative Urine Specific [place] 1.020 Bedside Urine Occult Blood - Negative Bedside Urine pH 6.0 Bedside Urine Protein - Negative Bedside Urine Urobilinogen +/- 1mg Bedside Urine Nitrite - Negative Bedside Urine Leukocytes - Negative Esterase Imaging Data CT scan - head: Radiologist Impression: [place] [address] CT Scan Report Signed Patient: Elizabeth Parker [facility]#: [id number] : 2Acct:[id number] Age/Sex: 79 / FDate of Service: 01/16/20 Loc: ED Accession Number: [id number] Procedure: CT head/brain wo con Ordering Provider: Nathan Rea MD PROCEDURE: CT HEAD/BRAIN WO CON INDICATIONS: Fall/injury TECHNIQUE: Noncontrast 4.5 mm thick angled axial sections acquired from the foramen magnum to the vertex, with coronal and sagittal reformats. For radiation dose reduction, the following was used: automated exposure control, adjustment of mA and/or kV according to patient size. COMPARISON: [facility], CT, CT ANGIO HEAD AND NECK, 01/12/2018, 19:20. [facility], CT, CT HEAD/BRAIN WO CON, 01/12/2018, 17:14. FINDINGS: Image quality: Excellent. CSF spaces: Basal cisterns are patent. No extra-axial fluid collections. The ventricles are symmetric in size and shape. Brain: No intracranial bleeds or masses. There is cerebral volume loss for age, with resultant ventricular and sulcal prominence. There are periventricular and deep white matter chronic small vessel ischemic changes. There is intracranial internal carotid artery and vertebral artery atherosclerosis. Skull and face: Calvarium and visualized facial bones appear intact, without suspicious lesions. Sinuses: Visualized sinuses and mastoids are clear. IMPRESSION: No acute intracranial disease process. Dictated by: Jocelyne Still MD, PhD on 01/16/2020 at 16:39 Approved by: Jocelyne Still MD, PhD on 01/16/2020 at 16:42 CT - cervical spine: Radiologist Impression: [place] [address] CT Scan Report Signed Patient: Elizabeth Parker [facility]#: [id number] : 2Acct:[id number] Age/Sex: 79 / FDate of Service: 01/16/20 Loc: ED Accession Number: [id number] Procedure: CT cervical spine wo con Ordering Provider: Nathan Rea MD PROCEDURE: CT CERVICAL SPINE WO CON INDICATIONS: Fall/injury TECHNIQUE: Noncontrast 3 mm thick sections acquired from the skull base to the T4 level. Sagittal and coronal reformats were then constructed. For radiation dose reduction, the following was used: automated exposure control, adjustment of mA and/or kV according to patient size. COMPARISON: [facility], CT, CT CERVICAL SPINE WO CON, 01/12/2018, 17:15. [facility], CR, CERVICAL SPINE 2 OR 3 VIEWS, 05/09/2017, 15:53. FINDINGS: Image quality: Excellent. Bones: Postsurgical changes compatible with C5-C6 posterior fusion with placement of cerclage wire and bone graft material. No fractures or dislocations. Visualized superior ribs are intact. Spine degenerative disc disease and facet arthropathy. Soft tissues: Prevertebral soft tissues are normal in thickness. No paravertebral hematomas. No apical pneumothoraces. IMPRESSION: No fracture. No acute osseous lesion. If symptoms and/or clinical suspicion for pathology persists, evaluation with MRI may be helpful for further assessment. Dictated by: Jocelyne Still MD, PhD on 01/16/2020 at 16:42 Approved by: Jocelyne Still MD, PhD on 01/16/2020 at 16:49 Chest x-ray: Radiologist Impression: [address] [address] XRay Report Signed Patient: Elizabeth Parker [facility]#: [id number] : 2At:[id number] Age/Sex: 79 / FDate of Service: 01/16/20 Loc: ED Accession Number: [id number] Procedure: XR chest 1V Ordering Provider: Nathan Rea MD PROCEDURE: XR CHEST 1V INDICATIONS: Fall/injury TECHNIQUE: One view of the chest was acquired. COMPARISON: [facility], , XR CHEST 1V, 07/24/2017, 18:22. FINDINGS: Surgical changes and devices: None. Lungs and pleura: Lungs are clear. No pleural effusions or pneumothorax. Mediastinum: Mediastinal contours appear normal. Heart size is enlarged. Bones and chest wall: No suspicious bony lesions. Overlying soft tissues appear unremarkable. IMPRESSION: No acute pulmonary process. Dictated by: Araceli Stone M.D. on 01/16/2020 at 16:24 Approved by: Araceli Stone M.D. on 01/16/2020 at 16:26 Extremity x-ray #1: Radiologist Impression: [address] [address] XRay Report Signed Patient: Elizabeth Parker [facility]#: [id number] : 2Acct:[id number] Age/Sex: 79 / FDate of Service: 01/16/20 Loc: ED Accession Number: [id number] Procedure: XR shoulder LT min 2V Ordering Provider: Nathan Rea MD PROCEDURE: XR SHOULDER LT MIN 2V INDICATIONS: fall/injury TECHNIQUE: 3 views of the shoulder were acquired. COMPARISON: None. FINDINGS: Bones: No fractures or dislocations. No suspicious bony lesions. Visualized ribs appear intact. Mild acromioclavicular joint and glenohumeral joint osteoarthritis. Soft tissues: No suspicious soft tissue calcifications. IMPRESSION: No fracture. No acute osseous lesion. If symptoms and/or clinical suspicion for pathology persists, further assessment with repeat radiographs (7-10 days) or advanced imaging (e.g. CT, MRI or bone scan) may be helpful. Dictated by: Jocelyne Still MD, PhD on 01/16/2020 at 16:30 Approved by: Jocelyne Still MD, PhD on 01/16/2020 at 16:31 [facility] Narrative Medical decision making narrative: Appropriate for admission. Hypokalemia and dehydration acute renal injury/fall risk/failure thrive <Yan Quintana, DO - Last Filed: 01/17/20 03:36> Lab Data Labs: Lab Results 01/16/20 01/16/20 01/16/20 Range/Units 16:00 16:00 16:00 WBC (4.5-11.0) X10^3/uL RBC (4.0-5.2) X10^6/uL Hgb (12.0-16.0) g/dL Hct (36-46) % MCV (80-100) fL MCH (26-34) PG MCHC (30-36) % RDW (11.6-14.8) % Plt Count (150-400) X10^3/uL Neut % (Auto) (50-75) % Lymph % (Auto) (25-40) % [place] % (Auto) (3-14) % Eos % (Auto) (2-4) % Baso % (Auto) (0-2) % Neut # (Auto) (1202-1754) /uL Lymph # (Auto) (8834-9776) /uL [place] # (Auto) (0-900) /uL Eos # (Auto) (0-450) /uL Baso # (Auto) (0-100) /uL PT 14.0 H (10.1-12.7) SECONDS INR 1.2 (0.9-1.3) Sodium (137-145) mmol/L Potassium (3.4-5.1) mmol/L Chloride (98-107) mmol/L Carbon Dioxide (22-32) mmol/L BUN (7-17) mg/dL Creatinine (0.52-1.04) mg/dL Estimated GFR (>60) mL/min BUN/Creatinine Ratio (6-22) Glucose (80-110) mg/dL Lactate 2.0 (0.7-2.1) mmol/L Calcium (8.4-10.2) mg/dL Magnesium (1.6-2.3) mg/dL Total Bilirubin (0.2-1.3) mg/dL AST (14-36) IU/L ALT (<35) IU/L Alkaline Phosphatase (38-126) U/L Total Creatine Kinase (30-135) U/L CK-MB (CK-2) CK-MB (CK-2) Rel Index Troponin I (0.01-0.034) ng/mL Total Protein (6.3-8.2) g/dL Albumin (3.5-5.0) g/dL Globulin (1.7-4.1) g/dL Albumin/Globulin Ratio (1.0-2.8) Procalcitonin 0.35 (<0.5) ng/mL Chlamy pneumoniae PCR (Not Detect) Adenovirus (PCR) (Not Detect) B.parapertussis DNA PCR (Not Detect) Coronavirus OC43 (PCR) (Not Detect) Coronavirus HKU1 (PCR) (Not Detect) Coronavirus 229E (PCR) (Not Detect) COVID-19 PCR (Negative) Coronavirus NL63 (PCR) (Not Detect) Human Metapneumovir PCR (Not Detect) Influenza Type A (PCR) (Not Detect) Influenza Type B (PCR) (Not Detect) M. pneumoniae (PCR) (Not Detect) Parainfluenza 1 (PCR) (Not Detect) Parainfluenza 2 (PCR) (Not Detect) Parainfluenza 3 (PCR) (Not Detect) Parainfluenza 4 (PCR) (Not Detect) RSV (PCR) (Not Detect) Entero/Rhino (PCR) (Not Detect) 01/16/20 01/16/20 01/16/20 Range/Units 16:00 16:00 16:00 WBC 12.4 H (4.5-11.0) X10^3/uL RBC 3.89 L (4.0-5.2) X10^6/uL Hgb 11.6 L (12.0-16.0) g/dL Hct 35.4 L (36-46) % MCV 90.8 (80-100) fL MCH 29.8 (26-34) PG MCHC 32.9 (30-36) % RDW 13.7 (11.6-14.8) % Plt Count 312 (150-400) X10^3/uL Neut % (Auto) 89.4 H (50-75) % Lymph % (Auto) 3.1 L (25-40) % [place] % (Auto) 7.2 (3-14) % Eos % (Auto) 0.0 L (2-4) % Baso % (Auto) 0.3 (0-2) % Neut # (Auto) 29652 H (7116-0194) /uL Lymph # (Auto) 400 L (9103-6791) /uL [place] # (Auto) 900 (0-900) /uL Eos # (Auto) 0 (0-450) /uL Baso # (Auto) 0 (0-100) /uL PT (10.1-12.7) SECONDS INR (0.9-1.3) Sodium 141 (137-145) mmol/L Potassium 2.4 L* (3.4-5.1) mmol/L Chloride 94 L (98-107) mmol/L Carbon Dioxide 39 H (22-32) mmol/L BUN 55 H (7-17) mg/dL Creatinine 1.25 H (0.52-1.04) mg/dL Estimated GFR 41.6 L (>60) mL/min BUN/Creatinine Ratio 44.0 H (6-22) Glucose 157 H (80-110) mg/dL Lactate (0.7-2.1) mmol/L Calcium 9.5 (8.4-10.2) mg/dL Magnesium 2.4 H (1.6-2.3) mg/dL Total Bilirubin 0.8 (0.2-1.3) mg/dL AST 27 (14-36) IU/L ALT 20 (<35) IU/L Alkaline Phosphatase 80 (38-126) U/L Total Creatine Kinase 51 (30-135) U/L CK-MB (CK-2) TNP CK-MB (CK-2) Rel Index TNP Troponin I 0.022 (0.01-0.034) ng/mL Total Protein 8.1 (6.3-8.2) g/dL Albumin 4.2 (3.5-5.0) g/dL Globulin 3.9 (1.7-4.1) g/dL Albumin/Globulin Ratio 1.1 (1.0-2.8) Procalcitonin (<0.5) ng/mL Chlamy pneumoniae PCR (Not Detect) Adenovirus (PCR) (Not Detect) B.parapertussis DNA PCR (Not Detect) Coronavirus OC43 (PCR) (Not Detect) Coronavirus HKU1 (PCR) (Not Detect) Coronavirus 229E (PCR) (Not Detect) COVID-19 PCR (Negative) Coronavirus NL63 (PCR) (Not Detect) Human Metapneumovir PCR (Not Detect) Influenza Type A (PCR) (Not Detect) Influenza Type B (PCR) (Not Detect) M. pneumoniae (PCR) (Not Detect) Parainfluenza 1 (PCR) (Not Detect) Parainfluenza 2 (PCR) (Not Detect) Parainfluenza 3 (PCR) (Not Detect) Parainfluenza 4 (PCR) (Not Detect) RSV (PCR) (Not Detect) Entero/Rhino (PCR) (Not Detect) 01/16/20 01/16/20 01/16/20 Range/Units 16:20 18:15 18:22 WBC (4.5-11.0) X10^3/uL RBC (4.0-5.2) X10^6/uL Hgb (12.0-16.0) g/dL Hct (36-46) % MCV (80-100) fL MCH (26-34) PG MCHC (30-36) % RDW (11.6-14.8) % Plt Count (150-400) X10^3/uL Neut % (Auto) (50-75) % Lymph % (Auto) (25-40) % [place] % (Auto) (3-14) % Eos % (Auto) (2-4) % Baso % (Auto) (0-2) % Neut # (Auto) (3805-8479) /uL Lymph # (Auto) (9570-1023) /uL [place] # (Auto) (0-900) /uL Eos # (Auto) (0-450) /uL Baso # (Auto) (0-100) /uL PT (10.1-12.7) SECONDS INR (0.9-1.3) Sodium (137-145) mmol/L Potassium (3.4-5.1) mmol/L Chloride (98-107) mmol/L Carbon Dioxide (22-32) mmol/L BUN (7-17) mg/dL Creatinine (0.52-1.04) mg/dL Estimated GFR (>60) mL/min BUN/Creatinine Ratio (6-22) Glucose (80-110) mg/dL Lactate 0.8 (0.7-2.1) mmol/L Calcium (8.4-10.2) mg/dL Magnesium (1.6-2.3) mg/dL Total Bilirubin (0.2-1.3) mg/dL AST (14-36) IU/L ALT (<35) IU/L Alkaline Phosphatase (38-126) U/L Total Creatine Kinase (30-135) U/L CK-MB (CK-2) CK-MB (CK-2) Rel Index Troponin I (0.01-0.034) ng/mL Total Protein (6.3-8.2) g/dL Albumin (3.5-5.0) g/dL Globulin (1.7-4.1) g/dL Albumin/Globulin Ratio (1.0-2.8) Procalcitonin (<0.5) ng/mL Chlamy pneumoniae PCR Not detected (Not Detect) Adenovirus (PCR) Not detected (Not Detect) B.parapertussis DNA PCR Not detected (Not Detect) Coronavirus OC43 (PCR) Not detected (Not Detect) Coronavirus HKU1 (PCR) Not detected (Not Detect) Coronavirus 229E (PCR) Not detected (Not Detect) COVID-19 PCR Negative (Negative) Coronavirus NL63 (PCR) Not detected (Not Detect) Human Metapneumovir PCR Not detected (Not Detect) Influenza Type A (PCR) Not detected (Not Detect) Influenza Type B (PCR) Not detected (Not Detect) M. pneumoniae (PCR) Not detected (Not Detect) Parainfluenza 1 (PCR) Not detected (Not Detect) Parainfluenza 2 (PCR) Not detected (Not Detect) Parainfluenza 3 (PCR) Not detected (Not Detect) Parainfluenza 4 (PCR) Not detected (Not Detect) RSV (PCR) Not detected (Not Detect) Entero/Rhino (PCR) Not detected (Not Detect) Urine Dip Bedside Urine Glucose Negative Bedside Urine Bilirubin - Negative Bedside Urine Ketone - Negative Urine Specific [place] 1.020 Bedside Urine Occult Blood - Negative Bedside Urine pH 6.0 Bedside Urine Protein - Negative Bedside Urine Urobilinogen +/- 1mg Bedside Urine Nitrite - Negative Bedside Urine Leukocytes - Negative Esterase Discharge Plan Departure Patient Disposition: Admitted as Observation Clinical Impression: Acute kidney injury, Acute dehydration Forehead laceration Qualifiers: Encounter type: initial encounter Qualified Code(s): S01.81XA - Laceration without foreign body of other part of head, initial encounter Discharge Date/Time: 01/16/20 21:00 Instructions: DI for Urinary Tract Infection (UTI), DI for Constipation, How to Prevent Falls Referrals: Carlos Dunn MD [Primary Care Provider] - Admit Date/Time: 01/16/20 20:23 Admit Provider: Tr Foster
[2020-01-16 16:07] LABS: Add Manual Diff / Slide Review NO; Basophils Absolute Auto 0 /uL (0-100); Basophils Percent Auto 0.3 % (0-2); Eosinophils Absolute Auto 0 /uL (0-450); Hematocrit 35.4 % (36-46); Hemoglobin 11.6 g/dL (12.0-16.0); Lymphocytes Absolute Auto 400 /uL (1100-4500); Lymphocytes Percent Auto 3.1 % (25-40); Mean Corpuscular HGB Conc 32.9 % (30-36); Mean Corpuscular Hemoglobin 29.8 PG (26-34); Mean Corpuscular Volume 90.8 fL (80-100); Monocytes Absolute Auto 900 /uL (0-900); Monocytes Percent Auto 7.2 % (3-14); Neutrophils Absolute Auto 11100 /uL (1500-7000); Neutrophils Percent Auto 89.4 % (50-75); Platelet Count 312 X10^3/uL (150-400); Red Blood Cell Count 3.89 X10^6/uL (4.0-5.2); Red Cell Distribution Width 13.7 % (11.6-14.8); White Blood Cell Count 12.4 X10^3/uL (4.5-11.0)
[2020-01-16 16:13] LABS: INR 1.2 (0.9-1.3)
[2020-01-16] MEDS: ACETAMINOPHEN 325 MG TABLET 650 MG PO (16:13)
--- NOTE | 2020-01-16 16:14 | DI.RAD.S_ITS ---
PROCEDURE: XR SHOULDER LT MIN 2V INDICATIONS: fall/injury TECHNIQUE: 3 views of the shoulder were acquired. COMPARISON: None. FINDINGS: Bones: No fractures or dislocations. No suspicious bony lesions. Visualized ribs appear intact. Mild acromioclavicular joint and glenohumeral joint osteoarthritis. Soft tissues: No suspicious soft tissue calcifications. IMPRESSION: No fracture. No acute osseous lesion. If symptoms and/or clinical suspicion for pathology persists, further assessment with repeat radiographs (7-10 days) or advanced imaging (e.g. CT, MRI or bone scan) may be helpful. Dictated by: Jocelyne Still MD, PhD on 01/16/2020 at 16:30 Approved by: Jocelyne Still MD, PhD on 01/16/2020 at 16:31
[2020-01-16] MEDS: SODIUM CHLORIDE 0.9% 1,000 ML 1000 ML IV ×2 (16:16→17:46)
[2020-01-16 16:17] LABS: Alanine Aminotransferase 20 IU/L (<35); Albumin 4.2 g/dL (3.5-5.0); Albumin Globulin Ratio 1.1 (1.0-2.8); Alkaline Phosphatase 80 U/L (38-126); Aspartate Aminotransferase 27 IU/L (14-36); Bilirubin Total 0.8 mg/dL (0.2-1.3); Blood Urea Nitrogen 55 mg/dL (7-17); Calcium 9.5 mg/dL (8.4-10.2); Carbon Dioxide 39 mmol/L (22-32); Chloride 94 mmol/L (98-107); Creatine Kinase 51 U/L (30-135); Estimated Glomerular Filt Rate 41.6 mL/min (>60); Globulin 3.9 g/dL (1.7-4.1); Glucose 157 mg/dL (80-110); Sodium 141 mmol/L (137-145); Total Protein 8.1 g/dL (6.3-8.2)
--- NOTE | 2020-01-16 16:17 | PC.NURSE ---
Patient here from home with who states that patient had an unwitnessed fall this morning in the bedroom. found patient facedown in the bedroom, and it appears that she hit her forehead on a lamp. Small abrasion noted to forehead with no active bleeding or bruising. Patient denies neck pain. Patient appears very weak and mucous membranes appear dry. states that patient fell ten days ago, another unwitnessed fall. Patient was diagnosed with a UTI yesterday and started on Keflex and Zofran. No other injuries obvious on head-to-toe assessment. states patient has had mild diarrhea but no vomiting. Patient last ate previous evening.
[2020-01-16 16:20] LABS: Magnesium 2.4 mg/dL (1.6-2.3)
[2020-01-16 16:32] LABS: HEMOLYSIS 19 (0-50); Troponin I 0.022 ng/mL (0.01-0.034)
[2020-01-16 16:47] LABS: COVID19 -Nasal RAPID Negative (Negative)
[2020-01-16 16:48] LABS: Procalcitonin 0.35 ng/mL (<0.5)
[2020-01-16 16:53] LABS: Potassium 2.4 mmol/L (3.4-5.1)
[2020-01-16] MEDS: POTASSIUM CHLORIDE 40 MEQ in SODIUM CHLORIDE 0.9% 500 ML 130 ML IV (17:41)
[2020-01-16 18:04] LABS: Reflexed Lactate in 2 Hours Y
[2020-01-16] MEDS: TET,DIPH,PERTUSS(ACELL),VAC/PF 0.5 ML SYRINGE IM (18:25)
[2020-01-16 18:42] LABS: Lactate 2HR (Lactic Acid Rflx) 0.8 mmol/L (0.7-2.1)
[2020-01-16 19:50] LABS: Adenovirus Not Detected (Not Detect); Coronavirus 229E Not Detected (Not Detect); Coronavirus HKU1 Not Detected (Not Detect); Coronavirus NL 63 Not Detected (Not Detect); Coronavirus OC43 Not Detected (Not Detect); Human Metapneumovirus Not Detected (Not Detect); Human Rhinovirus/Enterovirus Not Detected (Not Detect); Influenza A Not Detected (Not Detect)
[2020-01-16 19:51] LABS: Bordetella pertussis Not Detected (Not Detect); Chlamydophila pneumoniae Not Detected (Not Detect); Influenza B Not Detected (Not Detect); Mycoplasma pneumoniae Not Detected (Not Detect); Parainfluenza Virus 1 Not Detected (Not Detect); Parainfluenza Virus 2 Not Detected (Not Detect); Parainfluenza Virus 3 Not Detected (Not Detect); Parainfluenza Virus 4 Not Detected (Not Detect); Respiratory Syncytial Virus Not Detected (Not Detect)
--- NOTE | 2020-01-16 22:18 | PC.NURSE ---
2100 pt admitted from ed per stretcher to rm 228. DX weakness, low potassium, fall with facial lac. pt alert and oriented x2, IV in progress to RAC with KCl 40meq rider. Initial SBP 83 - NS infusing at 150/hr. aware. Oriented to environment, bed in low and locked position, instructed to call for assistance as needed. MRSA swab sent per protocol
[2020-01-16] MEDS: LACTATED RINGERS 1,000 ML 150 ML IV (23:44)
[2020-01-16] MEDS: PIPERACILLIN-TAZO 3.375 GM/50 ML FROZ.PIGGY IV (23:45)
[2020-01-16] MEDS: HEPARIN 5,000 UNIT/ML VIAL 5000 UNIT SUBCUT (23:47)
[2020-01-16 23:59] LABS: Add Manual Diff / Slide Review NO; Basophils Absolute Auto 0 /uL (0-100); Basophils Percent Auto 0.1 % (0-2); Eosinophils Absolute Auto 0 /uL (0-450); Hematocrit 27.7 % (36-46); Hemoglobin 9.4 g/dL (12.0-16.0); Lymphocytes Absolute Auto 600 /uL (1100-4500); Lymphocytes Percent Auto 8.5 % (25-40); Mean Corpuscular HGB Conc 33.9 % (30-36); Mean Corpuscular Hemoglobin 30.8 PG (26-34); Mean Corpuscular Volume 90.7 fL (80-100); Monocytes Absolute Auto 600 /uL (0-900); Monocytes Percent Auto 7.9 % (3-14); Neutrophils Absolute Auto 6000 /uL (1500-7000); Neutrophils Percent Auto 83.5 % (50-75); Platelet Count 204 X10^3/uL (150-400); Red Blood Cell Count 3.05 X10^6/uL (4.0-5.2); Red Cell Distribution Width 13.5 % (11.6-14.8); White Blood Cell Count 7.2 X10^3/uL (4.5-11.0)
[2020-01-17] VITALS (7 sets, daily range): BP systolic 101–121; BP diastolic 56–66; PULSE 62–74; RESP 12–18; TEMP 36.1–37.1; O2SAT 96–100
[2020-01-17 00:05] LABS: Alanine Aminotransferase 14 IU/L (<35); Albumin 3.1 g/dL (3.5-5.0); Alkaline Phosphatase 58 U/L (38-126); Aspartate Aminotransferase 18 IU/L (14-36); BUN Creatinine Ratio 46.4 (6-22); Bilirubin Total 0.6 mg/dL (0.2-1.3); Blood Urea Nitrogen 45 mg/dL (7-17); Calcium 8.5 mg/dL (8.4-10.2); Carbon Dioxide 34 mmol/L (22-32); Chloride 104 mmol/L (98-107); Estimated Glomerular Filt Rate 55.7 mL/min (>60); Globulin 3.1 g/dL (1.7-4.1); Glucose 125 mg/dL (80-110); HEMOLYSIS < 15 (0-50); Magnesium 2.3 mg/dL (1.6-2.3); Phosphorous 3.8 mg/dL (2.8-4.1); Sodium 141 mmol/L (137-145); Total Protein 6.2 g/dL (6.3-8.2)
[2020-01-17 00:07] LABS: Potassium 2.4 mmol/L (3.4-5.1)
[2020-01-17] MEDS: TRAZODONE 50 MG TABLET 150 MG PO ×2 (00:29→20:27)
[2020-01-17] MEDS: PREGABALIN 50 MG CAPSULE 100 MG PO ×3 (00:30→20:27)
[2020-01-17] MEDS: DULOXETINE 30 MG CAPSULE PO ×4 (00:30→20:27)
[2020-01-17] MEDS: POTASSIUM CHLORIDE 20 MEQ TAB 40 MEQ PO (00:30)
[2020-01-17] MEDS: POTASSIUM CHLORIDE 40 MEQ in SODIUM CHLORIDE 0.9% 500 ML 130 ML IV (00:33)
[2020-01-17] MEDS: DONEPEZIL 5 MG TABLET 10 MG PO ×2 (00:43→20:30)
[2020-01-17 01:09] LABS: Lactate (Lactic Acid) 0.6 mmol/L (0.7-2.1)
--- NOTE | 2020-01-17 02:09 | PC.NURSE ---
Pt alert and oriented x4. Upto BSC without issues. No complaints of lightheadedness or dizziness. LIFE COACH at bedside, VO to change VS to Q 4 hours instead of Q30. Pt denies any pain. Critical K+ results reported to JACEK Ruiz. Orders received and administered. Pt home med [place] not available in night pharmacy so unable to give, LIFE COACH aware. Pt resting in bed now without any complaints.
[2020-01-17 05:21] LABS: INR 1.2 (0.9-1.3); Prothrombin Time 14.3 SECONDS (10.1-12.7)
[2020-01-17] MEDS: PIPERACILLIN-TAZO 3.375 GM/50 ML FROZ.PIGGY IV ×3 (05:30→16:29)
--- NOTE | 2020-01-17 05:37 | P.HP_ITS ---
History of Present Illness History of Present Illness Date Patient Seen: 01/17/20 Time Patient Seen: 12:00 Chief complaint: back aches stomach aches weakness Narrative: Chelsey almaguer is a 79-year-old female presented to the emergency room brought in by her following a fall due to generalized weakness and diarrhea. Patient on 01/15/20 had gone to see her primary care Dr. Dunn, had a positive urinalysis with nitrates and was prescribed Keflex 500 mg b.i.d. for 7 days. Patient suffered a small laceration to forehead due to fall, also complained of left Shoulder pain and back pain. ER completed a chest x-ray: No acute pulmonary process was noted. Head CT: No acute intracranial disease process present. C-spine CT: No fractures. 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 Patient was admitted to the floor with sepsis, UTI, dehydration. Patient is a poor historian due to history of dementia, and unable to recall any medical history. Patient was pleasant and was helped up to the bedside commode by 2 nurses. Patient noted pain with full bladder, which was relieved after emptying. Last abdominal pelvis CT 2017. Patient has a BMI of 20 0.6. ER labs pro calcitonin 0.35, WBC 12.4, RBC 3.05, hemoglobin 9.4, hematocrit 27.7, neutrophils automatic a 3.5%, lymphs automatic a 8.5%, lymph auto # 600, PT 14, INR 1.2, potassium 2.4, CO2 34. Patient History Medical History Anxiety (Acute) Chronic pain syndrome (Acute) Chronic rectal pain (Acute) Degenerative arthritis (Acute) Dementia (Acute) Depression (Acute) History of femur fracture (Acute) Hypertension (Acute) Irritable bowel syndrome (IBS) (Acute) Migraine (Acute) Peptic ulcer hemorrhage (Acute) Spinal stenosis (Acute) Surgical History H/O: hysterectomy (Acute) History of appendectomy (Acute) Family & Social History Social History: household members spouse Prior Living Arrangements House caregiver/support person Yes other She drinks about 2 alcoholic beverages a week. No cigarette smoking Safety & Behavioral: Feels Safe in Current Yes Environment Been Physically Hurt or No Threatened By a Person Suicidal Ideation Description None Tobacco & Substance use: Smoking Status Never smoker alcohol intake frequency a few times a month Substance Use Type does not use Meds Home Medications and Allergies Home Medications Medication Instructions Recorded Confirmed Type Benefiber Clear SF (dextrin) 1 packet PO PRN PRN 07/24/17 01/16/20 History Restasis 1 drp OPHTHALMIC (EYE) BID 07/24/17 01/16/20 History acetaminophen 500 mg PO Q6H PRN 07/24/17 01/16/20 History amlodipine 10 mg PO QPM 07/24/17 01/16/20 History clobetasol 1 applic TOPICAL PRN PRN 07/24/17 01/16/20 History donepezil 10 mg PO BEDTIME 07/24/17 01/16/20 History estradiol 1 g VAGINAL DIRECTED 07/24/17 01/16/20 History fluticasone furoate 1 spray INTRANASAL DAILY 07/24/17 01/16/20 History hydrocortisone acetate [Anusol-HC] 1 supp CO PRN PRN 07/24/17 01/16/20 History ipratropium bromide 2 spray INTRANASAL BID 07/24/17 01/16/20 History lidocaine 1 applic TOPICAL PRN PRN 07/24/17 01/16/20 History memantine 10 mg PO BID 07/24/17 01/16/20 History mesalamine 2 tab PO DAILY 07/24/17 01/16/20 History nystatin 1 applic TOPICAL BID 07/24/17 01/16/20 History trazodone 150 mg PO BEDTIME 07/24/17 01/16/20 History chlorthalidone 12.5 mg PO DAILY 01/12/18 01/16/20 History duloxetine 30 mg PO TID 01/12/18 01/16/20 History furosemide 40 mg PO DAILY 01/12/18 01/16/20 History losartan 50 mg PO DAILY 01/12/18 01/16/20 History nitrofurantoin monohyd/m-cryst 100 mg PO BID #10 cap 01/12/18 01/17/20 Rx [Macrobid] erenumab-aooe 70 mg/mL 140 mg SUBCUT QMONTH #2 ml 03/22/18 01/17/20 Rx subcutaneous auto-injector erenumab-aooe 140 mg/mL 140 mg SUBCUT QMONTH #1 ml 11/13/18 01/17/20 Rx subcutaneous auto-injector sumatriptan succinate 100 mg tablet See Rx Instructions PO .COMPLEX 12/17/18 01/16/20 Rx #10 tab pregabalin 100 mg capsule 100 mg PO BID #12 cap 03/14/19 01/16/20 Rx pregabalin 100 mg capsule 100 mg PO BID #60 cap 05/07/19 01/17/20 Rx cephalexin 500 mg capsule 500 mg PO BID 7 Days #14 cap 01/14/20 01/16/20 Rx Allergies Allergy/AdvReac Type Severity Reaction Status Date / Time baclofen [BACLOFEN] Allergy Unknown Verified 01/14/20 13:49 cyclobenzaprine Allergy Unknown Verified 01/14/20 13:49 [From FLEXERIL] nortriptyline [NORTRIPTYLINE] Allergy Unknown Verified 01/14/20 13:49 Sulfa (Sulfonamide AdvReac Mild vomiting Verified 01/14/20 13:49 Antibiotics) [SULFA (SULFONAMIDE ANTIBIOTICS)] pantoprazole [From PROTONIX] AdvReac Unknown NAUSEA/DIAR Verified 01/14/20 13:49 SEAN Review of Systems Review of Systems ROS: Yes unobtainable due to mental condition (Dementia) Exam Vital Signs (past 8 hours): - 01/16/20 21:41 01/16/20 21:45 01/16/20 22:00 Temperature Pulse Rate 65 68 65 Respiratory Rate Blood Pressure 91/55 L 92/56 L 93/53 L Pulse Oximetry 01/16/20 23:48 01/17/20 00:12 Temperature 97.6 F Pulse Rate 64 62 Respiratory Rate 18 Blood Pressure 90/52 L 120/56 L Pulse Oximetry 95 Oxygen Delivery Method Nasal Cannula Oxygen Flow Rate 2 Narrative Exam Narrative: Narrative Exam Narrative: GENERAL: A delightful small framed elderly female that appears stated age. Poor historian unable to assist in ROS & HX. Moderately nourished, well-developed patient, in no distress, not toxic not dyspneic HEAD: Normocephalic. There is a small 5 mm superficial laceration at mid fo rehead. No crepitus or step-off or tenderness. No active bleeding. Based visualized. No bone or muscle injury seen. EYES: Pupils equal round and reactive. No scleral icterus. No injection no disc harge ENT: Mucous membranes moist. No drooling no tongue elevation no trismus no malocclusion NECK: Trachea midline. Non tender, no midline tenderness or step-off. CARDIOVASCULAR: Regular rate and rhythm without murmurs, gallops, or rubs. RESPIRATORY: Clear to auscultation. Breath sounds equal bilaterally. No wheezes, rales, or rhonchi. GASTROINTESTINAL: Abdomen soft, positive suprapubic tenderness with palpation, left CVA tenderness, nondistended, bowel sounds hyperactive. EXTREMITIES: No gross deformities. Noted: Right mid thigh anterior hard fixed nontender material beneath the dermis. Site without signs or symptoms of infection patient reports from poor wound healing of leg fracture/repair. BACK: Nontender without deformity or crepitance. No skin injury. No rib tenderness. NEURO: Clear speech no facial droop light touch intact to bilateral face hands and legs. Strong equal podiatry teacher. SKIN: Warm and dry PSYCH: pleasant and in no emotional distress Objective Labs Result Diagrams: 01/16/20 23:43 01/16/20 23:43 Labs: Laboratory Results - last 24 hr 01/16/20 01/16/20 01/16/20 16:00 16:00 16:00 WBC RBC Hgb Hct MCV MCH MCHC RDW Plt Count Neut % (Auto) Lymph % (Auto) [place] % (Auto) Eos % (Auto) Baso % (Auto) Neut # (Auto) Lymph # (Auto) [place] # (Auto) Eos # (Auto) Baso # (Auto) PT 14.0 H INR 1.2 Sodium Potassium Chloride Carbon Dioxide BUN Creatinine Estimated GFR BUN/Creatinine Ratio Glucose Lactate 2.0 Calcium Phosphorus Magnesium Total Bilirubin AST ALT Alkaline Phosphatase Total Creatine Kinase CK-MB (CK-2) CK-MB (CK-2) Rel Index Troponin I Total Protein Albumin Globulin Albumin/Globulin Ratio Procalcitonin 0.35 Nasal Screen MRSA (PCR) Chlamy pneumoniae PCR Adenovirus (PCR) B.parapertussis DNA PCR Coronavirus OC43 (PCR) Coronavirus HKU1 (PCR) Coronavirus 229E (PCR) COVID-19 PCR Coronavirus NL63 (PCR) Human Metapneumovir PCR Influenza Type A (PCR) Influenza Type B (PCR) M. pneumoniae (PCR) Parainfluenza 1 (PCR) Parainfluenza 2 (PCR) Parainfluenza 3 (PCR) Parainfluenza 4 (PCR) RSV (PCR) Entero/Rhino (PCR) 01/16/20 01/16/20 01/16/20 16:00 16:00 16:00 WBC 12.4 H RBC 3.89 L Hgb 11.6 L Hct 35.4 L MCV 90.8 MCH 29.8 MCHC 32.9 RDW 13.7 Plt Count 312 Neut % (Auto) 89.4 H Lymph % (Auto) 3.1 L [place] % (Auto) 7.2 Eos % (Auto) 0.0 L Baso % (Auto) 0.3 Neut # (Auto) 35607 H Lymph # (Auto) 400 L [place] # (Auto) 900 Eos # (Auto) 0 Baso # (Auto) 0 PT INR Sodium 141 Potassium 2.4 L* Chloride 94 L Carbon Dioxide 39 H BUN 55 H Creatinine 1.25 H Estimated GFR 41.6 L BUN/Creatinine Ratio 44.0 H Glucose 157 H Lactate Calcium 9.5 Phosphorus Magnesium 2.4 H Total Bilirubin 0.8 AST 27 ALT 20 Alkaline Phosphatase 80 Total Creatine Kinase 51 CK-MB (CK-2) TNP CK-MB (CK-2) Rel Index TNP Troponin I 0.022 Total Protein 8.1 Albumin 4.2 Globulin 3.9 Albumin/Globulin Ratio 1.1 Procalcitonin Nasal Screen MRSA (PCR) Chlamy pneumoniae PCR Adenovirus (PCR) B.parapertussis DNA PCR Coronavirus OC43 (PCR) Coronavirus HKU1 (PCR) Coronavirus 229E (PCR) COVID-19 PCR Coronavirus NL63 (PCR) Human Metapneumovir PCR Influenza Type A (PCR) Influenza Type B (PCR) M. pneumoniae (PCR) Parainfluenza 1 (PCR) Parainfluenza 2 (PCR) Parainfluenza 3 (PCR) Parainfluenza 4 (PCR) RSV (PCR) Entero/Rhino (PCR) 01/16/20 01/16/20 01/16/20 16:20 18:15 18:22 WBC RBC Hgb Hct MCV MCH MCHC RDW Plt Count Neut % (Auto) Lymph % (Auto) [place] % (Auto) Eos % (Auto) Baso % (Auto) Neut # (Auto) Lymph # (Auto) [place] # (Auto) Eos # (Auto) Baso # (Auto) PT INR Sodium Potassium Chloride Carbon Dioxide BUN Creatinine Estimated GFR BUN/Creatinine Ratio Glucose Lactate 0.8 Calcium Phosphorus Magnesium Total Bilirubin AST ALT Alkaline Phosphatase Total Creatine Kinase CK-MB (CK-2) CK-MB (CK-2) Rel Index Troponin I Total Protein Albumin Globulin Albumin/Globulin Ratio Procalcitonin Nasal Screen MRSA (PCR) Chlamy pneumoniae PCR Not detected Adenovirus (PCR) Not detected B.parapertussis DNA PCR Not detected Coronavirus OC43 (PCR) Not detected Coronavirus HKU1 (PCR) Not detected Coronavirus 229E (PCR) Not detected COVID-19 PCR Negative Coronavirus NL63 (PCR) Not detected Human Metapneumovir PCR Not detected Influenza Type A (PCR) Not detected Influenza Type B (PCR) Not detected M. pneumoniae (PCR) Not detected Parainfluenza 1 (PCR) Not detected Parainfluenza 2 (PCR) Not detected Parainfluenza 3 (PCR) Not detected Parainfluenza 4 (PCR) Not detected RSV (PCR) Not detected Entero/Rhino (PCR) Not detected 01/16/20 01/16/20 01/16/20 21:00 23:43 23:43 WBC 7.2 RBC 3.05 L Hgb 9.4 L Hct 27.7 L MCV 90.7 MCH 30.8 MCHC 33.9 RDW 13.5 Plt Count 204 Neut % (Auto) 83.5 H Lymph % (Auto) 8.5 L [place] % (Auto) 7.9 Eos % (Auto) 0.0 L Baso % (Auto) 0.1 Neut # (Auto) 6000 Lymph # (Auto) 600 L [place] # (Auto) 600 Eos # (Auto) 0 Baso # (Auto) 0 PT INR Sodium 141 Potassium 2.4 L* Chloride 104 Carbon Dioxide 34 H BUN 45 H Creatinine 0.97 Estimated GFR 55.7 L BUN/Creatinine Ratio 46.4 H Glucose 125 H Lactate Calcium 8.5 Phosphorus 3.8 Magnesium 2.3 Total Bilirubin 0.6 AST 18 ALT 14 Alkaline Phosphatase 58 Total Creatine Kinase CK-MB (CK-2) CK-MB (CK-2) Rel Index Troponin I Total Protein 6.2 L Albumin 3.1 L Globulin 3.1 Albumin/Globulin Ratio 1.0 Procalcitonin Nasal Screen MRSA (PCR) Negative for mrsa Chlamy pneumoniae PCR Adenovirus (PCR) B.parapertussis DNA PCR Coronavirus OC43 (PCR) Coronavirus HKU1 (PCR) Coronavirus 229E (PCR) COVID-19 PCR Coronavirus NL63 (PCR) Human Metapneumovir PCR Influenza Type A (PCR) Influenza Type B (PCR) M. pneumoniae (PCR) Parainfluenza 1 (PCR) Parainfluenza 2 (PCR) Parainfluenza 3 (PCR) Parainfluenza 4 (PCR) RSV (PCR) Entero/Rhino (PCR) 01/16/20 01/17/20 23:43 04:43 WBC RBC Hgb Hct MCV MCH MCHC RDW Plt Count Neut % (Auto) Lymph % (Auto) [place] % (Auto) Eos % (Auto) Baso % (Auto) Neut # (Auto) Lymph # (Auto) [place] # (Auto) Eos # (Auto) Baso # (Auto) PT 14.3 H INR 1.2 Sodium Potassium Chloride Carbon Dioxide BUN Creatinine Estimated GFR BUN/Creatinine Ratio Glucose Lactate 0.6 L Calcium Phosphorus Magnesium Total Bilirubin AST ALT Alkaline Phosphatase Total Creatine Kinase CK-MB (CK-2) CK-MB (CK-2) Rel Index Troponin I Total Protein Albumin Globulin Albumin/Globulin Ratio Procalcitonin Nasal Screen MRSA (PCR) Chlamy pneumoniae PCR Adenovirus (PCR) B.parapertussis DNA PCR Coronavirus OC43 (PCR) Coronavirus HKU1 (PCR) Coronavirus 229E (PCR) COVID-19 PCR Coronavirus NL63 (PCR) Human Metapneumovir PCR Influenza Type A (PCR) Influenza Type B (PCR) M. pneumoniae (PCR) Parainfluenza 1 (PCR) Parainfluenza 2 (PCR) Parainfluenza 3 (PCR) Parainfluenza 4 (PCR) RSV (PCR) Entero/Rhino (PCR) Assessment & Plan Assessment & Plan narrative: 1. Sepsis likely secondary to UTI and dehydration: Acute on admission Keflex held, Piperacell, blood cultures x2 and urine culture pending, abdominal pelvis CT ordered. Labs are as follows BUN 45 GFR 55.7 BUN creatinine ratio 46.4 glucose 125 lactate 125 total protein 6.2 albumin 3.1 Tele med monitoring continuous pulse oximetry vitals q.4 hours, lactated Ringer's 150 cc/hour 2. Hypokalemia acute upon admission 10 cm in the ER 2.4, patient was given a 20 mEq potassium rider in the ER repeat potassium was 2.4 once admitted to floor, a secondary 20 mg equivalent potassium rider was given in addition to a 20 mEq p.o. potassium does. Repeat potassium came up to 2.9. At approximately 6:30 a.m. ordered a 40 mEq potassium rider to be given, and repeat labs at noon. 3. Dementia exacerbation upon admission, chronic patient is calm and resting comfortably without agitation, will continue dementia medications donepezil and memantine. 4. Fall/Laceration acute upon admission small laceration to forehead irrigated cleaned and closed with [facility] emergency room. Site is clean dry and intact without signs of infection. 5. Severe chronic protein calorie malnutrition BMI 20.6 chronic Nutrition consult ordered VTE prophylaxis : SCDs, heparin 5000 units Diet: Regular Code status: DNR Patient was admitted to the hospital due to sepsis presentation, failed a outpatient management, required higher acuity of inpatient medical care and management. Time Spent With Patient Time with patient: less than 15 minutes Quality VTE Deep Vein Thrombosis/Pulmonary Embolism Present on Admission: No
[2020-01-17] MEDS: LOSARTAN 50 MG TABLET PO (09:30)
[2020-01-17] MEDS: HEPARIN 5,000 UNIT/ML VIAL 5000 UNIT SUBCUT ×2 (09:31→20:27)
[2020-01-17] MEDS: MEMANTINE HCL 5 MG TABLET 10 MG PO ×2 (10:14→20:31)
[2020-01-17 10:30] LABS: HEMOLYSIS < 15 (0-50); Potassium 3.6 mmol/L (3.4-5.1)
--- NOTE | 2020-01-17 12:56 | PM.CHAP ---
Staff referral. Short introduction visit. Pt was confused about how she got to and about her care plan. She does expect her SO to be here later today. Steffen Diasnm, [facility] [phone]
--- NOTE | 2020-01-17 15:56 | CM.IDA ---
Initial DCP Assessment Note Patient is a 79 yo female, resident of [place]. Patient presents w/ aches, weakness and found to have UTI/sepsis PCP: Carlos Dunn Payer: [facility] Reviewed chart. Met w/patient and her partner Dalton, both in good spirits today. Dalton explains he has been managing okay at home caring for patient, she completes most ADLs indp w/need for some assist in the mornings and evenings. Patient has a tendency to get up throughout the night. Dalton has been considering hiring more help to assist patient w/higher ADLs. During this conversation, discussed home health and screening tech assistance. Provided Dalton w/the Senior Resource Guide, dog eared in home cg agency list and printed in home private caregiver list from intranet/resource page. Encouraged Dalton to call Riana in the resource center to ask about the private cg list (because it looks to be very outdated) also reiterated to Dalton that persons on this list were not vetted by . Dalton appreciative and requests HH upon DC, no agency preference. This WAITER/WAITRESS CAPTAIN able to get F2F signed, was not able to complete HH referral. Patient expected to DC tomorrow w/partner back home, w/HH to follow. HH RN/PT/HOOP RIVETING MACHINE OPERATOR HELPER/WAITER/WAITRESS CAPTAIN would be helpful. RACHEL Sandoval
[2020-01-17] MEDS: CEFTRIAXONE 1 GM/50 ML FROZ.PIGGY IV (20:28)
[2020-01-18] VITALS (8 sets, daily range): BP systolic 84–138; BP diastolic 51–74; PULSE 61–75; RESP 15–18; TEMP 36–36.8; O2SAT 94–96
[2020-01-18] MEDS: ACETAMINOPHEN 325 MG TABLET 650 MG PO ×2 (05:20→11:17)
[2020-01-18] MEDS: CYCLOSPORINE 1 EACH EYE-BOTH ×2 (10:05→21:12)
[2020-01-18] MEDS: DULOXETINE 30 MG CAPSULE PO ×3 (10:05→21:11)
[2020-01-18] MEDS: PREGABALIN 50 MG CAPSULE 100 MG PO ×2 (10:06→21:11)
[2020-01-18] MEDS: HEPARIN 5,000 UNIT/ML VIAL 5000 UNIT SUBCUT ×2 (10:06→21:11)
[2020-01-18] MEDS: MEMANTINE HCL 5 MG TABLET 10 MG PO ×2 (10:06→21:12)
[2020-01-18] MEDS: SODIUM CHLORIDE 0.9% FLUSH 10 ML IV ×2 (10:07→21:18)
--- NOTE | 2020-01-18 15:40 | PT.IIE ---
Current Diagnoses Hypokalemia (01/16/20) Surgical History (Last Reviewed 01/17/20 @ 06:20 by ROMY Aguirre) H/O: hysterectomy (Acute) History of appendectomy (Acute) Medical History (Last Reviewed 01/17/20 @ 06:18 by ROMY Aguirre) Anxiety (Acute) Chronic pain syndrome (Acute) Chronic rectal pain (Acute) Degenerative arthritis (Acute) Dementia (Acute) Depression (Acute) History of femur fracture (Acute) Hypertension (Acute) Irritable bowel syndrome (IBS) (Acute) Migraine (Acute) Peptic ulcer hemorrhage (Acute) Spinal stenosis (Acute) Physical Therapy Inpatient Evaluation/Re-Eval M1 PT/OT-IP Prior Functional Status Start: 01/18/20 16:42 Freq: NEEDED Status: Active Protocol: Document 01/18/20 15:40 AB (Rec: 01/18/20 17:01 [id number]) Medical Review Prior Functional Status Medical History Reviewed Yes Communication with confusion; able to answer questions but needs repetitions to obtain an answer Mobility and Gait spouse stated that pt is modified independent with all mobilities and ambulation without AD but uses a FWW for outdoor mobility Social History Household Members spouse Living Arrangements House Number of Floors (Floors) One Floor Number of Stairs To Enter/Railing? 4 steps to enter with bilateral wide rails and can only use one rail at a time Home Environment Standard Height Toilet,Tub/ Shower Home Equipment Front Wheel Walker Additional Social History Comment pt has an adjustable bed without rails M2 PT-IP Current Condition Start: 01/18/20 16:42 Freq: NEEDED Status: Active Protocol: Document 01/18/20 15:40 AB (Rec: 01/18/20 17:01 [id number]) Physical Therapy Current Condition Current Condition Evaluation Date 01/18/20 Treatment Diagnosis acute kidney injury; dehydration; difficulty in walking Onset Date 01/16/20 M3 PT-IP Subjective Start: 01/18/20 16:42 Freq: NEEDED Status: Active Protocol: Document 01/18/20 15:40 AB (Rec: 01/18/20 17:01 [id number]) Subjective Physical Therapy Visit Type Type Initial Evaluation Visit Start Time 15:40 Visit Stop Time 16:00 Total Visit Minutes 20 Number of SUPERVISOR CELL ROOM Visits 0 Physical Therapy Visit Comments Patient Comments requested to use the toilet Therapy Pain Assessment Pain When Pain Assessed At Rest Location Abdomen Intensity 10 Scale Used Numeric (0 - 10) Pain Management Techniques Distraction M4 PT-IP Mobility and Gait Start: 01/18/20 16:42 Freq: NEEDED Status: Active Protocol: Document 01/18/20 15:40 AB (Rec: 01/18/20 17:01 AB [id number]) PT-Bed Mobility Assessment Supine to Sit Supine to Sit Standby Assistance Sit to Supine Sit to Supine Standby Assistance PT-Transfer Assessment Sit to and From Stand Sit to and from Stand Contact Guard Assistance,1 Person Assistance,Use of Upper Extremities Equipment Transfer Assistive Device Gait Belt,Front Wheeled Walker Orthotic/Prosthetic Devices or Brace: No Transfers Transfer Destination Toilet Transfer Technique ambulated using FWW Transfer Ability Level of Assist Contact Guard Assistance,1 Person Assistance,Use of Upper Extremities Comments Mobility Comments BP supine: 96/59. completed supine to sit SBA and sit to stand CGA. ambulated to the toilet using FWW CGA. pt was able to maintain standing using FWW for support CGA while assisted with brief management. pt ambulated out of the toilet and wanted to just go back to bed. completed sit to supine SBA. positioned in bed. call light and table placed within reach . c/o slight dizzines after ambulation to the toilet. BP at end of tx session: 104/65. Gait Assessment Gait Gait Assistance Required: Contact Guard Assist Distance (Feet) 12 Able to Maintain Weight Bearing Status Yes During Gait Assistive Devices Assistive Device Gait Belt,Front Wheeled Walker Orthotic/Prosthetic Devices or Brace: No Gait Deviations General Gait Pattern Antalgic,Decreased Stride Length,Decreased Feet Clearance,Flexed Trunk,Lateral Trunk Lean,Step-to Gait Factors Limiting Gait Function Factors Limiting Gait Function Decreased Activity Tolerance, Decreased Strength,Difficulty Following Directions,Pain,Poor Balance,Poor Safety Awareness Comments Gait Comments pls refer to mobility section for details. presents with antalgic gait, increaes forward flexion and lateral trunk lean to the R. PT-Balance Assessment Sitting Balance and Reactions Static Sitting Balance Ability Good Dynamic Sitting Balance Ability Good Standing Balance and Reactions Static Standing Balance Ability Fair Dynamic Standing Balance Ability Fair Device Used FWW M5 PT-IP Objective Assessments Start: 01/18/20 16:42 Freq: NEEDED Status: Active Protocol: Document 01/18/20 15:40 AB (Rec: 01/18/20 17:01 AB [id number]) Orientation Orientation/Cognition Level of Alertness Alert Orientation Name Language Function Ability Hard of Hearing Safety Awareness Decreased Safety Awareness Memory Description Short Term Impaired,Senior Care Impaired Comments requiring increase time to answer question and answers are not accurate as spouse needs to correct pt's responses. pt has diagnosis to cognitive deficits Gross Range of Motion Lower Extremity ROM Assessment Within Functional Limits Strength Lower Extremity Strength Assessment Within Functional Limits Coordination Assessment Gross Coordination Gross Coordination WNL Muscle Tone Muscle Tone WNL Yes M6 PT-IP Treatment Start: 01/18/20 16:42 Freq: NEEDED Status: Active Protocol: Document 01/18/20 15:40 AB (Rec: 01/18/20 17:01 AB [id number]) Physical Therapy Treatment Education Education Provided Safety M7 PT-IP Assessment and Plan Start: 01/18/20 16:42 Freq: NEEDED Status: Active Protocol: Document 01/18/20 15:40 AB (Rec: 01/18/20 17:01 [id number]) PT Summary Assessment and Plan Potential Rehabilitation Potential Fair Status of Condition at Evaluation Stable Summary Impairments Pain,ROM,Strength,Balance, Coordination,Sensation,Tone, Cognition,Bed Mobility, Transfers,Gait,Activity Tolerance Assessment Summary pt requiring CGA with mobility but has decrease activity tolerance. pt plans to go home and spouse to assist pt at home. will continue to assess progress. Goals Bed Mobility Goal Independent Transfer Goal Independent,Front Wheeled Walker Gait Goal Independent,Front Wheel Walker Gait Distance 100 Other Goals ambulation without AD 75 ft SBA up/down 4 steps 1 rail SBA Days to Meet Goals 5 Frequency of Treatment Frequency Of Treatment Once a Day Treatment Plan Physical Therapy Treatment Plan Bed Mobility Training,Transfer Training,Gait Training, Therapeutic Exercise,Balance Retraining,Discharge Planning, Hot or Cold Pack,Neuromuscular Re-ed,Coordination Retraining Other Recommendations and Next Treatment ambulation, stair climbing, Focus caregiver training Recommendations To Nursing Amount of Assist Needed 1 Person Assist Discharge Recommendations PT Discharge Recommendations Home with Assistance Transportation Needs at Discharge Private Vehicle
--- NOTE | 2020-01-18 17:59 | P.PN_ITS ---
Subjective Subjective Date Patient Seen: 01/18/20 Time Patient Seen: 17:46 Interval history: Patient is 79-year-old female admitted on 01/16/2020 due to dehydration and hypokalemia. Today she is resting in bed, in no apparent distress at this time. Patient complains of rectal pain. She has chronic idiopathic rectal pain for which she sees the pain management specialis. Pt appeared more confused this evening from time of admit, unable to get accurate ROS. Patient is on diuretic management with furosemide and chlorthalidone as well as amlodipine and losartan for blood pressure control. We have admitted her in the past with severe hypokalemia related to her diuretic medications. She has significant memory impairment with her dementia. Exam Vital Signs (past 8 hours): - 01/18/20 12:00 01/18/20 16:00 Temperature 97.8 F 98 F Pulse Rate 75 70 Respiratory Rate 15 17 Blood Pressure 97/63 84/51 L Pulse Oximetry 95 96 Oxygen Delivery Method Room Air Oxygen Flow Rate 0 Narrative Exam Narrative: GENERAL: small framed elderly female that appears stated age. Poor historian unable to assist in ROS & HX. Moderately nourished, well- developed patient, in no distress, not toxic not dyspneic HEAD: Normocephalic. There is a small 5 mm superficial laceration at mid f orehead with steri-strip. No crepitus or step-off or tenderness. No active bleeding. Based visualized. No bone or muscle injury seen. EYES: Pupils equal round and reactive. No scleral icterus. No injection no discharge ENT: Mucous membranes moist. No drooling no tongue elevation no trismus no malocclusion NECK: Trachea midline. Non tender, no midline tenderness or step-off. CARDIOVASCULAR: Regular rate and rhythm without murmurs, gallops, or rubs. RESPIRATORY: Clear to auscultation. Breath sounds equal bilaterally. No wheezes, rales, or rhonchi. GASTROINTESTINAL: Abdomen soft, positive suprapubic tenderness with palpation, left CVA tenderness, nondistended, bowel sounds hyperactive. EXTREMITIES: No gross deformities. Noted: Right mid thigh anterior hard fixed nontender material beneath the dermis. Site without signs or symptoms of infection patient reports from poor wound healing of leg fracture/repair. BACK: Nontender without deformity or crepitance. No skin injury. No rib tenderness. NEURO: Clear speech no facial droop light touch intact to bilateral face hands and legs. 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 SKIN: Warm and dry PSYCH: Patient appears more emotionally aggitated this evening Objective Labs Result Diagrams: 01/16/20 23:43 01/17/20 10:01 Assessment & Plan Assessment & Plan narrative: 1. Sepsis likely secondary to UTI and dehydration: Acute on admission Keflex held, [employer] Tele med monitoring continuous pulse oximetry vitals q.4 hours, lactated Ringer's 150 cc/hour 2. Hypokalemia acute upon admission Last K+ 01/17/2020 3.6 ordered stat K+ level for re-evaluation -K in ER 2.4, patient was given a 20 mEq potassium rider in the ER repeat potassium was 2.4 once admitted to floor, a secondary 20 mg equivalent potassium rider was given in addition to a 20 mEq p.o. potassium does. Repeat potassium came up to 2.9. At approximately 6:30 a.m. ordered a 40 mEq potassium rider to be given, and repeat labs at noon. 3. Dementia exacerbation upon admission, chronic patient is calm and resting comfortably without agitation, will continue dementia medications donepezil and memantine. 4. Fall/Laceration acute upon admission small laceration to forehead irrigated cleaned and closed with Dermabond emergency room. Site is clean dry and intact without signs of infection. 5. Severe chronic protein calorie malnutrition BMI 20.6 chronic Nutrition consult ordered VTE prophylaxis: SCDs,heparin 5000 units Diet: Regular Code status: DNR Patient was admitted to the hospital due to sepsis presentation, failed a outpatient management, required higher acuity of inpatient medical care and management. Quality VTE Deep Vein Thrombosis/Pulmonary Embolism Present on Admission: No
[2020-01-18 18:34] LABS: HEMOLYSIS < 15 (0-50)
[2020-01-18] MEDS: CEFTRIAXONE 1 GM/50 ML FROZ.PIGGY IV (18:52)
[2020-01-18] MEDS: POTASSIUM CHLORIDE 30 MEQ in SODIUM CHLORIDE 0.9% 250 ML 88.333 ML IV (20:02)
[2020-01-18] MEDS: TRAZODONE 50 MG TABLET 150 MG PO (21:11)
[2020-01-18] MEDS: DONEPEZIL 5 MG TABLET 10 MG PO (21:12)
[2020-01-19] MEDS: POTASSIUM CHLORIDE 30 MEQ in SODIUM CHLORIDE 0.9% 250 ML 88.333 ML IV (00:04)
[2020-01-19 04:00] VITALS: BP 124/84; PULSE 67; RESP 16; TEMP 36.5; O2SAT 96
[2020-01-19 04:59] LABS: BUN Creatinine Ratio 32.4 (6-22); Blood Urea Nitrogen 22 mg/dL (7-17); Carbon Dioxide 34 mmol/L (22-32); Chloride 104 mmol/L (98-107); Estimated Glomerular Filt Rate > 60.0 mL/min (>60); Glucose 93 mg/dL (80-110); HEMOLYSIS < 15 (0-50); Potassium 4.1 mmol/L (3.4-5.1); Sodium 140 mmol/L (137-145)
[2020-01-19 08:00] VITALS: BP 131/77; PULSE 78; RESP 16; TEMP 36.6; O2SAT 95
--- NOTE | 2020-01-19 08:00 | PM.DS.1 ---
History of Present Illness History of Present Illness Chief complaint: back aches stomach aches weakness Narrative: Chelsey almaguer is a 79-year-old female presented to the emergency room brought in by her following a fall due to generalized weakness and diarrhea. Patient on 01/15/20 had gone to see her primary care Dr. Dunn, had a positive urinalysis with nitrates and was prescribed Keflex 500 mg b.i.d. for 7 days. Patient suffered a small laceration to forehead due to fall, also complained of left Shoulder pain and back pain. ER completed a chest x-ray: No acute pulmonary process was noted. Head CT: No acute intracranial disease process present. C-spine CT: No fractures. 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 Patient was admitted to the floor with sepsis, UTI, dehydration. Patient is a poor historian due to history of dementia, and unable to recall any medical history. Patient was pleasant and was helped up to the bedside commode by 2 nurses. Patient noted pain with full bladder, which was relieved after emptying. Last abdominal pelvis CT 2018. Patient has a BMI of 20 0.6. ER labs pro calcitonin 0.35, WBC 12.4, RBC 3.05, hemoglobin 9.4, hematocrit 27.7, neutrophils automatic a 3.5%, lymphs automatic a 8.5%, lymph auto # 600, PT 14, INR 1.2, potassium 2.4, CO2 34. Discharge Providers Provider Date of admission: 01/16/20 20:23 Discharge Date: 01/19/20 Primary care physician: Carlos Dunn MD Consults: 01/16/20 21:57 Consult to Pastoral Services Routine Comment: would appreciate a social visit from the sales engagement manager 01/16/20 23:28 Consult to Discharge Planning Routine Comment: 01/17/20 18:02 Consult to Physical Therapy Evaluate & Treat Comment: Physician Instructions: Evaluate and Treat 01/18/20 08:27 Consult to Home Health Routine Comment: UTI, sepsis Reason For Exam: Set up RN/PT/LOGISTICS SPECIALIST/MATERIAL LOADER for discharge home 01/18/20 12:54 Consult to Physical Therapy Evaluate & Treat Comment: Physician Instructions: Evaluate and Treat [facility] Hospital Course Discharge Diagnosis: Sepsis secondary to urinary tract infection Acute metabolic encephalopathy Hypokalemia Dementia Hospital Course: Patient is 79-year-old admitted on 01/15 due to Sepsis r/t UTI, acute metabolic encephalopathy, dehydration, hypokalemia and fall/laceration 0.5 cm to forehead. She was getting outpatient treatment with Keflex for pansensitive UTI. When she developed weakness and had a fall resulting in a 0.5 cm laceration to the forehead, which was subsequently closed with Dermabond in the emergency room. She has been admitted in the past with severe hypokalemia related to her diuretic medications. She has significant memory impairment with her dementia. She has chronic idiopathic rectal pain for which she sees the touch up painter. In the emergency room patient had a chest x-ray, C-spine head CT, and shoulder x-ray which were all unremarkable. When patient's losartan and amlodipine were stopped due to hypotension, and her Lasix and chlorothalidone or also stopped due to hypokalemia. Patient received a total 120 potassium mEq while hospitalized to correct for hypokalemia. Patient had a positive urine culture of E coli and was treated with ceftriaxone 1 g q.day x4 days and normal saline IV fluid resuscitation, and will go home on 250 mg of Levaquin x3 days p.o. Patient's vital signs have stabilized and returned to baseline, patient is no longer any distress, denies pain, and verbalizes that she is ready to go home. Status at Discharge Cognitive/behavioral status at discharge: at baseline, confused and calm Functional status at discharge: independent ambulation Overall status at discharge: patient is back to baseline Time Spent with Patient Time spent: Less than 30 minutes Exam Vital Signs (past 8 hours): - 01/19/20 04:00 01/19/20 08:00 Temperature 97.7 F 97.8 F Pulse Rate 67 78 Respiratory Rate 16 16 Blood Pressure 124/84 131/77 Pulse Oximetry 96 95 Oxygen Delivery Method Room Air Oxygen Flow Rate 0 Narrative Exam Narrative: Exam Narrative: GENERAL: small framed elderly female that appears stated age. Poor historian unable to assist in ROS & HX. Moderately nourished, well-developed patient, in no distress, not toxic not dyspneic HEAD: Normocephalic. There is a small 5 mm superficial laceration at mid forehead with steri-strip. No crepitus or step-off or tenderness. No active bleeding. Based visualized. No bone or muscle injury seen. EYES: Pupils equal round and reactive. No scleral icterus. No injection no discharge ENT: Mucous membranes moist. No drooling no tongue elevation no trismus no malocclusion NECK: Trachea midline. Non tender, no midline tenderness or step-off. CARDIOVASCULAR: Regular rate and rhythm without murmurs, gallops, or rubs. RESPIRATORY: Clear to auscultation. Breath sounds equal bilaterally. No wheezes, rales, or rhonchi. GASTROINTESTINAL: Abdomen soft, positive suprapubic tenderness with palpation, left CVA tenderness, nondistended, bowel sounds hyperactive. EXTREMITIES: No gross deformities. Noted: Right mid thigh anterior hard fixed nontender material beneath the dermis. Site without signs or symptoms of infection patient reports from poor wound healing of leg fracture/repair. BACK: Nontender without deformity or crepitance. No skin injury. No rib tenderness. NEURO: Clear speech no facial droop light touch intact to bilateral face hands and legs. 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 SKIN: Warm and dry PSYCH: Patient is pleasant this a.m., and verbalizes her desire to return home. Objective Labs Result Diagrams: 01/16/20 23:43 01/19/20 04:20 Labs: Laboratory Results - last 24 hr 01/18/20 01/19/20 18:20 04:20 Sodium 140 Potassium 3.0 L 4.1 Chloride 104 Carbon Dioxide 34 H BUN 22 H Creatinine 0.68 Estimated GFR > 60.0 BUN/Creatinine Ratio 32.4 H Glucose 93 Calcium 9.0 Discharge Plan Discharge Plan Patient Disposition: Home Provider Discharge Comment: Patient to go home with Home health services Discharge orders & Medications Prescriptions: New levofloxacin 250 mg tablet 250 mg PO Q24H 3 Days Qty: 3 RF: 0 Continued Aimovig Autoinjector 140 mg/mL auto-injector 140 mg SUBCUT QMONTH Qty: 1 RF: 12 sumatriptan succinate 100 mg tablet See Rx Instructions PO .COMPLEX Qty: 10 RF: 0 pregabalin [Lyrica] 100 mg capsule 100 mg PO BID Qty: 12 RF: 0 Lyrica 100 mg capsule 100 mg PO BID Qty: 60 RF: 2 duloxetine 30 mg capsule,delayed release(DR/EC) 30 mg PO TID RF: 0 hydrocortisone acetate [Anusol-HC] 25 mg Suppository 1 supp OR PRN PRN (Reason: Hemorrhoids) Qty: 0 RF: 0 trazodone 150 mg Tablet 150 mg PO BEDTIME Qty: 15 RF: 0 donepezil 10 mg Tablet 10 mg PO BEDTIME RF: 0 acetaminophen 500 mg Tablet 500 mg PO Q6H PRN (Reason: Pain, Mild) RF: 0 estradiol 0.01 % (0.1 mg/gram) Cream 1 g VAGINAL DIRECTED RF: 0 ipratropium bromide 0.03 % [place],Non-Aerosol 2 spray INTRANASAL BID RF: 0 memantine 10 mg Tablet 10 mg PO BID RF: 0 mesalamine 1.2 gram Tablet,Delayed Release (Dr/Ec) 2 tab PO DAILY RF: 0 fluticasone furoate 27.5 mcg/actuation [place],Suspension 1 spray Intranasal DAILY RF: 0 clobetasol 0.05 % Cream 1 applic Topical PRN PRN (Reason: unknown) RF: 0 nystatin 100,000 unit/gram Cream 1 applic Topical BID RF: 0 Restasis 0.05 % Dropperette 1 drp ophthalmic (eye) BID RF: 0 Benefiber Clear SF (dextrin) 3 gram/3.5 gram Powder In Packet 1 packet PO PRN PRN (Reason: Constipation) RF: 0 lidocaine 5 % Ointment 1 applic TOPICAL PRN PRN (Reason: unknown) RF: 0 erenumab-aooe [Aimovig Autoinjector (2 Pack)] 70 mg/mL auto-injector 140 mg SUBCUT QMONTH Qty: 2 RF: 11 Discontinued cephalexin [Keflex] 500 mg capsule 500 mg PO BID 7 Days Qty: 14 RF: 0 losartan 50 mg tablet 50 mg PO DAILY RF: 0 furosemide 40 mg tablet 40 mg PO DAILY RF: 0 chlorthalidone 25 mg tablet 12.5 mg PO DAILY RF: 0 amlodipine 10 mg Tablet 10 mg PO QPM RF: 0 Follow up/Referrals: Carlos Dunn MD [Primary Care Provider] - Diet/Activity/Treatments Diet: Diet as Tolerated Activity: As tolerated Discharge Data Primary Care Provider: Carlos Dunn VTE Deep Vein Thrombosis/Pulmonary Embolism Present on Admission: No
--- NOTE | 2020-01-19 08:32 | CM.DPC ---
DCP HH Planning: Per MD, pt making some progress and if stable could potentially discharge home today. SW made HH referral based on vendor calendar as pt/spouse have no HH preference and faxed clinicals including completed F2F and orders to [facility] and alerted them to possible d/c home today. Plan: SW to follow during bedside rounding to determine if pt stable for d/c home with spouse and new [facility] referral today. RACHEL Coronado
[2020-01-19] MEDS: CYCLOSPORINE 1 EACH EYE-BOTH (09:54)
[2020-01-19] MEDS: MEMANTINE HCL 5 MG TABLET 10 MG PO (09:54)
[2020-01-19] MEDS: HEPARIN 5,000 UNIT/ML VIAL 5000 UNIT SUBCUT (09:55)
[2020-01-19] MEDS: DULOXETINE 30 MG CAPSULE PO (09:55)
[2020-01-19] MEDS: PREGABALIN 50 MG CAPSULE 100 MG PO (10:03)
[2020-01-19] MEDS: SODIUM CHLORIDE 0.9% FLUSH 10 ML IV (10:05)
[2020-01-19 12:00] VITALS: BP 120/66; PULSE 80; RESP 18; TEMP 36.8; O2SAT 95
--- NOTE | 2020-01-19 12:33 | PC.NURSE ---
Dayshift Note: Pt is oriented to self only this am. Pt states that she needs to go feed her dog by 630. Pt is increasingly restless, attempts unassisted ambulation. Bed alarm in place. Pt helped to bathroom and repositioned for complaints of pain in backside. Pt has both idiopathic chronic rectal pain and blanchable reddened areas on buttocks. Pt reoriented and mental status is improving throughout the shift. Pt denies SOB, RA. SPO2 WNL. Lungs CTA in all miller. Pt with VSS, BP 120/66 (86). Denies chest pain or dizziness. Pt tolerating diet, feeds self independently, denies nausea. Pt has been continent, voiding adequate volume. Pt working with PT for safety at home and fall safety. Impulsive at times, curvature in spine and altered gait. Pt slightly unsteady on feet. Using FWW with min assist. Discharge orders received. R AC IV removed this am d/t infiltration, not replaced with MD order pending discharge. Will continue to monitor, notify MD with changes.
--- NOTE | 2020-01-19 13:57 | PT.IPTN ---
Current Diagnoses Hypokalemia (01/16/20) Physical Therapy Treatment Note M2 PT-IP Current Condition Start: 01/18/20 16:42 Freq: NEEDED Status: Active Protocol: Document 01/18/20 15:40 AB (Rec: 01/18/20 17:01 AB [id number]) Physical Therapy Current Condition Current Condition Evaluation Date 01/18/20 Treatment Diagnosis acute kidney injury; dehydration; difficulty in walking Onset Date 01/16/20 M3 PT-IP Subjective Start: 01/18/20 16:42 Freq: NEEDED Status: Active Protocol: Document 01/19/20 13:40 CLB (Rec: 01/19/20 14:31 CLB [id number]) Subjective Physical Therapy Visit Type Type Treatment Note Visit Start Time 13:40 Visit Stop Time 13:57 Total Visit Minutes 17 Number of INFORMATION CONSULTANT Visits 1 Physical Therapy Visit Comments Patient Comments Pt and ready for CG training. M4 PT-IP Mobility and Gait Start: 01/18/20 16:42 Freq: NEEDED Status: Active Protocol: Document 01/19/20 13:40 CLB (Rec: 01/19/20 14:31 CLB [id number]) PT-Transfer Assessment Sit to and From Stand Sit to and from Stand Standby Assistance,Contact Guard Assistance,1 Person Assistance,Use of Upper Extremities Equipment Transfer Assistive Device Gait Belt,Front Wheeled Walker Orthotic/Prosthetic Devices or Brace: No Transfers Transfer Destination Chair,Wheelchair Transfer Technique ambulated using FWW Transfer Ability Level of Assist Standby Assistance,Contact Guard Assistance,1 Person Assistance,Use of Upper Extremities Comments Mobility Comments Pt in chair upon arrival, present. Pt stood CGA and ambulated ~20ft w/FWW/CGA and sat in WC CGA with cues to keep walker close. Pt rode in WC to therapy stairs. Pt stood from WC SBA with cues to push off from arms of WC. Pt ambulate ~2ft to stairs. Pt climbed three stairs requiring CGA w/BUSINESS REPORTER on left. Pt then climbed a second time with assist of BUSINESS REPORTER up/down steps. Pt returned to sitting in WC. Pt ambulated ~20ft from WC in morrow to chair in room. Once in room pt stood at [facility] SBA and combed her hair with good standing balance. Pt then returned to chair with cues for chair approach and keep walker close and backing up to chair before sitting. Pt stated she needed to change her brief and RN notified. Pt left in chair with alarm on, all needs close and present. Gait Assessment Gait Gait Assistance Required: Standby Assistance,Contact Guard Assist,1 Person Assist Distance (Feet) 40 Able to Maintain Weight Bearing Status Yes During Gait Assistive Devices Assistive Device Gait Belt,Front Wheeled Walker Orthotic/Prosthetic Devices or Brace: No Gait Deviations General Gait Pattern Antalgic,Decreased Stride Length,Decreased Feet Clearance,Flexed Trunk,Lateral Trunk Lean,Step-to Gait Factors Limiting Gait Function Factors Limiting Gait Function Decreased Activity Tolerance, Decreased Strength,Difficulty Following Directions,Pain,Poor Balance,Poor Safety Awareness Comments Gait Comments pls refer to mobility section for details. presents with antalgic gait, increaes forward flexion and lateral trunk lean to the R. Stair Climbing Assessment Evaluation Level of Assist On Stairs Contact Guard Assistance Devices Stair Climbing Assistive Devices Right Railing Technique/Endurance Stair Climbing Direction Ascend and Descend Stair Climbing Technique Step to Step Number of Steps Climbed 3 Stair Climbing Set # Repetitions (reps) 2 Comments Stair Climbing Comments see mobility section M5 PT-IP Objective Assessments Start: 01/18/20 16:42 Freq: NEEDED Status: Active Protocol: Document 01/18/20 15:40 AB (Rec: 01/18/20 17:01 AB [id number]) Orientation Orientation/Cognition Level of Alertness Alert Orientation Name Language Function Ability Hard of Hearing Safety Awareness Decreased Safety Awareness Memory Description Short Term Impaired,Director Digital Communications Impaired Comments requiring increase time to answer question and answers are not accurate as spouse needs to correct pt's responses. pt has diagnosis to cognitive deficits Gross Range of Motion Lower Extremity ROM Assessment Within Functional Limits Strength Lower Extremity Strength Assessment Within Functional Limits Coordination Assessment Gross Coordination Gross Coordination WNL Muscle Tone Muscle Tone WNL Yes M6 PT-IP Treatment Start: 01/18/20 16:42 Freq: NEEDED Status: Active Protocol: Document 01/18/20 15:40 AB (Rec: 01/18/20 17:01 AB [id number]) Physical Therapy Treatment Education Education Provided Safety M7 PT-IP Assessment and Plan Start: 01/18/20 16:42 Freq: NEEDED Status: Active Protocol: Document 01/19/20 13:40 CLB (Rec: 01/19/20 14:31 CLB [id number]) PT Summary Assessment and Plan Potential Rehabilitation Potential Fair Status of Condition at Evaluation Stable Summary Impairments Pain,ROM,Strength,Balance, Coordination,Sensation,Tone, Cognition,Bed Mobility, Transfers,Gait,Activity Tolerance Assessment Summary Pt required CGA for sit-stand with cues for chair aproach for safety. Pt able to ambulate ~20ft x2 CGA-SBA with cues to stay inside walker. Pt able to stand at sink and comb hair with steady standing balance SBA. Pt's able to assist pt appropriately on stairs. Goals Bed Mobility Goal Independent Transfer Goal Independent,Front Wheeled Walker Gait Goal Independent,Front Wheel Walker Gait Distance 100 Other Goals ambulation without AD 75 ft SBA up/down 4 steps 1 rail SBA Days to Meet Goals 5 Frequency of Treatment Frequency Of Treatment Once a Day Treatment Plan Physical Therapy Treatment Plan Bed Mobility Training,Transfer Training,Gait Training, Therapeutic Exercise,Balance Retraining,Discharge Planning, Hot or Cold Pack,Neuromuscular Re-ed,Coordination Retraining Recommendations To Nursing Amount of Assist Needed 1 Person Assist Discharge Recommendations PT Discharge Recommendations Home with Assistance Transportation Needs at Discharge Private Vehicle
--- NOTE | 2020-01-19 16:12 | PC.NURSE ---
Discharge Note: Pt's to bedside for discharge teaching and PT safety teaching for fall prevention and mobility. Discharge teaching given regarding UTI, follow up and symptoms worsening. Discharge teaching given about fall safety and fall prevention. Medications discussed at length, especially emphasizing medications that have been discontinued and that pt's so/ should be responsible for administering pt's medications at this time, d/t the suspicion that pt was not taking her medications as had been prescribed and the potential for medication errors d/t pt's altered cognition from dementia. Also discussed that pt should take antibiotics for the full course even if symptoms are improved. Discussed potential for constipation as pt has not had a documented BM while in the hospital. Docusate was ordered and this RN told pt's /so to administer as ordered, to pay close attention to pt's BM and to follow up with primary care provider if pt were to be nauseated, have increasing abdominal pain, or to not have a BM within 1 or 2 days. Discussed that pt should remain active, eat fruits and vegetables and drink plenty of water to avoid constipation. Pt discharged via wheel-chair to private vehicle without incident.
== END 2020-01-19 15:00 | disposition home or self-care (01) | DRG 690 ==
LOC: ED 18:26 → ICU 01-17 06:12
PROVIDERS: Emergency Medicine; Internal Medicine; Nurse Practitioner Family; Admitting Provider Nurse Practitioner Adult Health; Emergency Provider Emergency Medicine; PCP Internal Medicine; Referring Provider Emergency Medicine; Visit Provider Nurse Practitioner Adult Health
DX: N39.0 Urinary tract infection, site not specified (principal); E87.6 Hypokalemia; E86.0 Dehydration; I95.9 Hypotension, unspecified; F03.90 Unspecified dementia, unspecified severity, without behavioral disturbance, psychotic disturbance, mood disturbance, and anxiety; I10 Essential (primary) hypertension; S01.81XA Laceration without foreign body of other part of head, initial encounter; G89.29 Other chronic pain; B96.20 Unspecified Escherichia coli [E. coli] as the cause of diseases classified elsewhere; W18.30XA Fall on same level, unspecified, initial encounter; Z11.59 Encounter for screening for other viral diseases; Z23 Encounter for immunization; T50.2X5A Adverse effect of carbonic-anhydrase inhibitors, benzothiadiazides and other diuretics, initial encounter
CPT/HCPCS: 36415; 70450; 71045; 72125; 73030; 74177; 80048; 80053; 81003; 82550; 82962; 83605; 83735; 84100; 84132; 84145; 84484; 85025; 85610; 87040; 87077; 87086; 87186; 87633; 87635; 87797; 90471; 93005; 94762; 96361; 96365; 96366; 97116; 97161; 99284; 99285; 90715; J1644; J2543; J3480; Q9967

== ENCOUNTER → 2020-05-15 15:51 | Outpatient (CLI) | payer MEDICARE, OTHER, SELFPAY ==
[2020-01-16 20:36] VITALS: BMI 20.7
== END ==
PROVIDERS: PCP Internal Medicine; Visit Provider Physician Assistant
DX: N34.3 Urethral syndrome, unspecified (principal)
CPT/HCPCS: 87077; 87086; 87147; 87186

== ENCOUNTER 2020-05-15 16:39 | Emergency (ER) | payer MEDICARE, OTHER, SELFPAY ==
[2020-01-16 20:36] VITALS: BMI 20.7
[2020-05-15 16:47] VITALS: BP 145/92; PULSE 89; RESP 20; TEMP 36.6; O2SAT 96
[2020-05-15 17:47] LABS: Add Manual Diff / Slide Review NO; Basophils Absolute Auto 0 /uL (0-100); Basophils Percent Auto 0.6 % (0-2); Eosinophils Absolute Auto 100 /uL (0-450); Eosinophils Percent Auto 3.3 % (2-4); Hematocrit 32.7 % (36-46); Hemoglobin 10.5 g/dL (12.0-16.0); Lymphocytes Absolute Auto 1000 /uL (1100-4500); Lymphocytes Percent Auto 23.8 % (25-40); Mean Corpuscular HGB Conc 32.2 % (30-36); Mean Corpuscular Hemoglobin 29.3 PG (26-34); Mean Corpuscular Volume 91.2 fL (80-100); Monocytes Absolute Auto 500 /uL (0-900); Monocytes Percent Auto 12.2 % (3-14); Neutrophils Absolute Auto 2600 /uL (1500-7000); Neutrophils Percent Auto 60.1 % (50-75); Platelet Count 266 X10^3/uL (150-400); Red Blood Cell Count 3.58 X10^6/uL (4.0-5.2); Red Cell Distribution Width 15.1 % (11.6-14.8); White Blood Cell Count 4.4 X10^3/uL (4.5-11.0)
[2020-05-15 17:55] LABS: Prothrombin Time 12.1 SECONDS (10.1-12.7)
[2020-05-15 17:58] LABS: PTT Partial Thromboplastin Tim 31 SECONDS (26.4-36.2)
[2020-05-15 18:09] LABS: Alanine Aminotransferase 34 IU/L (<35); Albumin 4.5 g/dL (3.5-5.0); Albumin Globulin Ratio 1.5 (1.0-2.8); Alkaline Phosphatase 43 U/L (38-126); Aspartate Aminotransferase 63 IU/L (14-36); BUN Creatinine Ratio 24.3 (6-22); Bilirubin Total 0.5 mg/dL (0.2-1.3); Blood Urea Nitrogen 18 mg/dL (7-17); Calcium 9.8 mg/dL (8.4-10.2); Carbon Dioxide 26 mmol/L (22-32); Chloride 102 mmol/L (98-107); Estimated Glomerular Filt Rate > 60.0 mL/min (>60); Glucose 88 mg/dL (80-110); Lipase 100 U/L (23-300); Potassium 4.3 mmol/L (3.4-5.1); Sodium 135 mmol/L (137-145); Total Protein 7.5 g/dL (6.3-8.2)
[2020-05-15 18:10] LABS: HEMOLYSIS 77 (0-50)
--- NOTE | 2020-05-15 18:56 | ED_ITS ---
HPI - Abdominal Pain General Chief Complaint: Abdominal Pain Stated Complaint: abdominal pain, hurts to pee, UTI symptoms Time Seen by Provider: 05/15/20 18:56 Source: patient Mode of arrival: Ambulatory Limitations: no limitations History of Present Illness HPI narrative: This is a 80-year-old female who comes to the emergency department from the walk-in clinic. Patient has had multiple issues with past several days and weak. She states in the last several days she started having burning, frequency and urgency sensation. She also states she has significant discomfort in the skin in the vaginal area and rectal area. She states that she tried some topical estrogen cream without any improvement. She states she has also been constipated. She feels like there is a bowel movement present but she has been unable to have 1. She normally takes stool softeners but has not been taking them this week. She complains of some general abdominal discomfort bilateral flank pain. She denies any vaginal discharge or bleeding. She denies any fevers she has had some nausea but no vomiting. She denies any chest pain or shortness of breath. She states she was sent here from the walk-in clinic after testing positive for UTI but being told that she had too many issues and needed further evaluation. Related Data Home Medications Medication Instructions Recorded Confirmed Benefiber Clear SF (dextrin) 1 packet PO PRN PRN 07/24/17 01/16/20 Restasis 1 drp OPHTHALMIC (EYE) BID 07/24/17 01/16/20 acetaminophen 500 mg PO Q6H PRN 07/24/17 01/16/20 clobetasol 1 applic TOPICAL PRN PRN 07/24/17 01/16/20 donepezil 10 mg PO BEDTIME 07/24/17 01/16/20 estradiol 1 g VAGINAL DIRECTED 07/24/17 01/16/20 fluticasone furoate 1 spray INTRANASAL DAILY 07/24/17 01/16/20 ipratropium bromide 2 spray INTRANASAL BID 07/24/17 01/16/20 lidocaine 1 applic TOPICAL PRN PRN 07/24/17 01/16/20 memantine 10 mg PO BID 07/24/17 01/16/20 mesalamine 2 tab PO DAILY 07/24/17 01/16/20 nystatin 1 applic TOPICAL BID 07/24/17 01/16/20 duloxetine 30 mg PO TID 01/12/18 01/16/20 Previous Rx's Medication Instructions Recorded erenumab-aooe 70 mg/mL 140 mg SUBCUT QMONTH #2 ml 03/22/18 subcutaneous auto-injector erenumab-aooe 140 mg/mL 140 mg SUBCUT QMONTH #1 ml 11/13/18 subcutaneous auto-injector sumatriptan succinate 100 mg tablet See Rx Instructions PO .COMPLEX 12/17/18 #10 tab pregabalin 100 mg capsule 100 mg PO BID #12 cap 03/14/19 pregabalin 100 mg capsule 100 mg PO BID #60 cap 05/07/19 docusate sodium [Colace] 100 mg PO BEDTIME #30 cap 01/19/20 hydrocortisone acetate [Anusol-HC] 1 supp [place] PRN PRN #0 pkg 01/19/20 trazodone 150 mg PO BEDTIME #15 tab 01/19/20 cephalexin [Keflex] 500 mg PO BID #14 cap 05/15/20 nystatin 1 applic TOPICAL TID #30 g 05/15/20 Allergies Allergy/AdvReac Type Severity Reaction Status Date / Time baclofen [BACLOFEN] Allergy Unknown Verified 01/14/20 13:49 cyclobenzaprine Allergy Unknown Verified 01/14/20 13:49 [From FLEXERIL] nortriptyline [NORTRIPTYLINE] Allergy Unknown Verified 01/14/20 13:49 Sulfa (Sulfonamide AdvReac Mild vomiting Verified 01/14/20 13:49 Antibiotics) [SULFA (SULFONAMIDE ANTIBIOTICS)] pantoprazole [From PROTONIX] AdvReac Unknown NAUSEA/DIAR Verified 01/14/20 13:49 SEAN Review of Systems Review of Systems ROS Unobtainable: All systems reviewed & are unremarkable except as noted in HPI and below Patient History Medical History (Updated 05/16/20 @ 02:37 by Sally Dixon DO) Anxiety Chronic pain syndrome Chronic rectal pain Degenerative arthritis Dementia Depression History of femur fracture Hypertension Irritable bowel syndrome (IBS) Migraine Peptic ulcer hemorrhage Spinal stenosis Surgical History H/O: hysterectomy History of appendectomy Social History household members: spouse caregiver/support person: Yes other: She drinks about 2 alcoholic beverages a week. No cigarette smoking Smoking Status: Never smoker Smoking Status: Never smoker alcohol intake frequency: a few times a month Substance Use Type: does not use Exam Narrative Exam Narrative: GENERAL: Alert and oriented x three, thin elderly female in mild distress. HEENT: Head normocephalic, atraumatic, EOMI, pupils reactive, face symmetric, moist mucous membranes NECK: Supple, full range of motion CARDIOVASCULAR: Regular rate and rhythm without murmurs, rubs or gallops. RESPIRATORY: Breath sounds equal bilaterally, no wheezes rales or rhonchi. ABDOMEN: Soft, nontender. Normoactive bowel sounds all 4 quadrants. No guarding or rebound, rigidity, no mass : No CVA tenderness. Female: external vaginal exam shows erythematous skin wi th scalloped edges with no vesicles extending into the perineum and towards the rectum, patient has no subcutaneous tissue exposed, no vaginal bleeding, no discharge. EXTREMITIES: Normal range of motion, no clubbing or edema. Neurovascularly intact NEUROLOGICAL: Cranial nerves II through XII grossly intact. Moving all extremities SKIN: Warm, dry, no petechiae, no rashes or lesions otherwise noted. Initial Vital Signs Initial Vital Signs: Vital Signs Temperature 97.9 F 05/15/20 16:47 Pulse Rate 89 05/15/20 16:47 Respiratory Rate 20 05/15/20 16:47 Blood Pressure 145/92 H 05/15/20 16:47 Pulse Oximetry 96 05/15/20 16:47 Course Orders Ordered: ED Orders 05/15/20 19:06 XR abdomen min 2V Stat 05/15/20 19:16 Urine Culture Stat Urine Microscopic Stat Vital Signs Vital signs: Vital Signs - 8 hr 05/15/20 18:57 05/15/20 19:57 Pulse Rate 83 68 Respiratory Rate 16 16 Blood Pressure 178/95 H 164/94 H Pulse Oximetry 96 99 MDM - Abdominal Pain Lab Data Attestation: I reviewed the patient's lab results. Result diagrams: 05/15/20 17:30 05/15/20 17:30 Labs: Lab Results 05/15/20 05/15/20 05/15/20 Range/Units 17:30 17:30 17:30 WBC 4.4 L (4.5-11.0) X10^3/uL RBC 3.58 L (4.0-5.2) X10^6/uL Hgb 10.5 L (12.0-16.0) g/dL Hct 32.7 L (36-46) % MCV 91.2 (80-100) fL MCH 29.3 (26-34) PG MCHC 32.2 (30-36) % RDW 15.1 H (11.6-14.8) % Plt Count 266 (150-400) X10^3/uL Neut % (Auto) 60.1 (50-75) % Lymph % (Auto) 23.8 L (25-40) % [place] % (Auto) 12.2 (3-14) % Eos % (Auto) 3.3 (2-4) % Baso % (Auto) 0.6 (0-2) % Neut # (Auto) 2600 (7129-4186) /uL Lymph # (Auto) 1000 L (4636-7501) /uL [place] # (Auto) 500 (0-900) /uL Eos # (Auto) 100 (0-450) /uL Baso # (Auto) 0 (0-100) /uL PT 12.1 (10.1-12.7) SECONDS INR 1.0 (0.9-1.3) APTT 31 (26.4-36.2) SECONDS Sodium 135 L (137-145) mmol/L Potassium 4.3 (3.4-5.1) mmol/L Chloride 102 (98-107) mmol/L Carbon Dioxide 26 (22-32) mmol/L BUN 18 H (7-17) mg/dL Creatinine 0.74 (0.52-1.04) mg/dL Estimated GFR > 60.0 (>60) mL/min BUN/Creatinine Ratio 24.3 H (6-22) Glucose 88 (80-110) mg/dL Calcium 9.8 (8.4-10.2) mg/dL Total Bilirubin 0.5 (0.2-1.3) mg/dL AST 63 H (14-36) IU/L ALT 34 (<35) IU/L Alkaline Phosphatase 43 (38-126) U/L Total Protein 7.5 (6.3-8.2) g/dL Albumin 4.5 (3.5-5.0) g/dL Globulin 3.0 (1.7-4.1) g/dL Albumin/Globulin Ratio 1.5 (1.0-2.8) Lipase 100 (23-300) U/L Urine RBC (0-5/HPF) Urine WBC (0-5/HPF) Ur Squamous Epith Cells (0-5/HPF) Amorphous Sediment Urine Bacteria (None) Ur Culture Indicated? 05/15/20 Range/Units 19:16 WBC (4.5-11.0) X10^3/uL RBC (4.0-5.2) X10^6/uL Hgb (12.0-16.0) g/dL Hct (36-46) % MCV (80-100) fL MCH (26-34) PG MCHC (30-36) % RDW (11.6-14.8) % Plt Count (150-400) X10^3/uL Neut % (Auto) (50-75) % Lymph % (Auto) (25-40) % [place] % (Auto) (3-14) % Eos % (Auto) (2-4) % Baso % (Auto) (0-2) % Neut # (Auto) (8010-4704) /uL Lymph # (Auto) (6192-9424) /uL [place] # (Auto) (0-900) /uL Eos # (Auto) (0-450) /uL Baso # (Auto) (0-100) /uL PT (10.1-12.7) SECONDS INR (0.9-1.3) APTT (26.4-36.2) SECONDS Sodium (137-145) mmol/L Potassium (3.4-5.1) mmol/L Chloride (98-107) mmol/L Carbon Dioxide (22-32) mmol/L BUN (7-17) mg/dL Creatinine (0.52-1.04) mg/dL Estimated GFR (>60) mL/min BUN/Creatinine Ratio (6-22) Glucose (80-110) mg/dL Calcium (8.4-10.2) mg/dL Total Bilirubin (0.2-1.3) mg/dL AST (14-36) IU/L ALT (<35) IU/L Alkaline Phosphatase (38-126) U/L Total Protein (6.3-8.2) g/dL Albumin (3.5-5.0) g/dL Globulin (1.7-4.1) g/dL Albumin/Globulin Ratio (1.0-2.8) Lipase (23-300) U/L Urine RBC None seen (0-5/HPF) Urine WBC 5-10/hpf H (0-5/HPF) Ur Squamous Epith Cells 0-1 /hpf (0-5/HPF) Amorphous Sediment 1+ Urine Bacteria Occasional (0-1) D (None) Ur Culture Indicated? Specimen cultured Point of care testing: Urine Dip Bedside Urine Glucose Negative Bedside Urine Bilirubin - Negative Bedside Urine Ketone +/- 5 Urine Specific Clubb 1.020 Bedside Urine Occult Blood - Negative Bedside Urine pH 6 Bedside Urine Protein + 30 Bedside Urine Urobilinogen - Negative Bedside Urine Nitrite - Negative Bedside Urine Leukocytes + 70 Esterase Imaging Data Abdominal x-ray: Radiologist's Impression: [address] [id number] ReportSigned Patient: Elizabeth Parker [facility]#: [id number]: 2Acct:[id number]/Sex: 80 / FDate of Service: 05/15/20Loc: EDAccession Number: [id number] Procedure: XR abdomen min 2V Ordering Provider: Sally Dixon D.O. PROCEDURE: XR ABDOMEN MIN 2V INDICATIONS: abdominal pain, constipation TECHNIQUE: 2 views of the abdomen were acquired. COMPARISON: [facility], ABDOMEN 2 VIEW, 10/31/2012, 16:33. FINDINGS: Surgical changes and devices: None. Bowel: No abnormally dilated loop of bowel demonstrated. No pneumoperitoneum or pneumatosis identified. No fluid levels in the bowel. Soft tissues: No masses; visualized solid organ contours appear normal in size. No suspicious abdominal calcifications. Bones: No suspicious bony abnormalities. IMPRESSION: No plain radiographic findings of bowel obstruction or pneumoperitoneum. Dictated by: Syed Hernandez M.D. on 05/15/2020 at 19:29 Approved by: Syed Hernandez M.D. on 05/15/2020 at 19:29 ECG Data Attestation: I personally reviewed and interpreted this ECG as follows: Prior ECG tracings: available for review Interpretation: Sinus rhythm rate of 76 [place] 180 QRS is 78 QTC of 404. No acute ST changes appreciated. Patient has prior from 01/15 which appears similar. [facility] [place] Narrative Medical decision making narrative: This is a 80-year-old female comes in with complaint of UTI symptoms, vulvar and perineal irritation and constipation. Patient states she has chronic constipation she did stop her stool softener several days ago. She has also had some burning and dysuria and frequency but has also had irritation of the peroneal and vulvar area. Patient does have changes on the skin consistent with likely yeast infection although potentially could be atrophic vaginitis but appears to extend the perineum and towards the rectum making this less likely. Patient and I discussed doing topical nystatin, she can also mixed with Aquaphor barrier ointment. We also discussed making sure that she cleaned the area well. Plan treat for UTI and to restart her stool softeners. Patient defer the magnesium citrate. Discharge Plan Departure Patient Disposition: Home Clinical Impression: Vulvar irritation, Constipation, UTI (urinary tract infection) Activity Restrictions/Additional Instructions: Follow-up with your primary care in the next 3-5 days for recheck, call Monday morning for an appointment. Take antibiotics until gone. Prescription was sent to [facility] for your antibiotic and nystatin cream. Take your regular stool softeners as prescribed. If needed take 1/2 bottle of magnesium citrate, if he did not have any stool output you may drink the 2nd half of the bottle of magnesium citrate. Use topical nystatin cream three times daily. Keep area as clean and dry as possible. Please return for fevers, worsening abdominal pain, vaginal pain, persistent vomiting, inability to have a bowel movement, inability urinate, black or bloody stools or other new or concerning symptoms. Prescriptions: New cephalexin [Keflex] 500 mg capsule 500 mg PO BID Qty: 14 RF: 0 nystatin 100,000 unit/gram cream 1 applic topical TID Qty: 30 RF: 0 No Action Aimovig Autoinjector 140 mg/mL auto-injector 140 mg SUBCUT QMONTH Qty: 1 RF: 12 sumatriptan succinate 100 mg tablet See Rx Instructions PO .COMPLEX Qty: 10 RF: 0 pregabalin [Lyrica] 100 mg capsule 100 mg PO BID Qty: 12 RF: 0 Lyrica 100 mg capsule 100 mg PO BID Qty: 60 RF: 2 duloxetine 30 mg capsule,delayed release(DR/EC) 30 mg PO TID RF: 0 hydrocortisone acetate [Anusol-HC] 25 mg Suppository 1 supp [place] PRN PRN (Reason: Hemorrhoids) Qty: 0 RF: 0 trazodone 150 mg Tablet 150 mg PO BEDTIME Qty: 15 RF: 0 docusate sodium [Colace] 100 mg capsule 100 mg PO BEDTIME Qty: 30 RF: 0 donepezil 10 mg Tablet 10 mg PO BEDTIME RF: 0 acetaminophen 500 mg Tablet 500 mg PO Q6H PRN (Reason: Pain, Mild) RF: 0 estradiol 0.01 % (0.1 mg/gram) Cream 1 g VAGINAL DIRECTED RF: 0 ipratropium bromide 0.03 % Sullivan,Non-Aerosol 2 spray INTRANASAL BID RF: 0 memantine 10 mg Tablet 10 mg PO BID RF: 0 mesalamine 1.2 gram Tablet,Delayed Release (Dr/Ec) 2 tab PO DAILY RF: 0 fluticasone furoate 27.5 mcg/actuation Sullivan,Suspension 1 spray Intranasal DAILY RF: 0 clobetasol 0.05 % Cream 1 applic Topical PRN PRN (Reason: unknown) RF: 0 nystatin 100,000 unit/gram Cream 1 applic Topical BID RF: 0 Restasis 0.05 % Dropperette 1 drp ophthalmic (eye) BID RF: 0 Benefiber Clear SF (dextrin) 3 gram/3.5 gram Powder In Packet 1 packet PO PRN PRN (Reason: Constipation) RF: 0 lidocaine 5 % Ointment 1 applic TOPICAL PRN PRN (Reason: unknown) RF: 0 erenumab-aooe [Aimovig Autoinjector (2 Pack)] 70 mg/mL auto-injector 140 mg SUBCUT QMONTH Qty: 2 RF: 11 Referrals: Carlos Dunn MD [Primary Care Provider] -
[2020-05-15 18:57] VITALS: BP 178/95; PULSE 83; RESP 16; O2SAT 96
--- NOTE | 2020-05-15 19:06 | DI.RAD.S_ITS ---
PROCEDURE: XR ABDOMEN MIN 2V INDICATIONS: abdominal pain, constipation TECHNIQUE: 2 views of the abdomen were acquired. COMPARISON: [facility], , ABDOMEN 2 VIEW, 10/31/2012, 16:33. FINDINGS: Surgical changes and devices: None. Bowel: No abnormally dilated loop of bowel demonstrated. No pneumoperitoneum or pneumatosis identified. No fluid levels in the bowel. Soft tissues: No masses; visualized solid organ contours appear normal in size. No suspicious abdominal calcifications. Bones: No suspicious bony abnormalities. IMPRESSION: No plain radiographic findings of bowel obstruction or pneumoperitoneum. Dictated by: Syed Hernandez M.D. on 05/15/2020 at 19:29 Approved by: Syed Hernandez M.D. on 05/15/2020 at 19:29
[2020-05-15 19:28] LABS: RBC Urine None Seen (0-5/HPF)
[2020-05-15 19:57] VITALS: BP 164/94; PULSE 68; RESP 16; O2SAT 99
[2020-05-15 20:03] LABS: Amorphous Sediment Urine 1+; Bacteria Urine Occasional (0-1); Culture Indicated Urine Specimen Cultured; Squamous Epithelial Cell Urine 0-1 /HPF (0-5/HPF); WBC Urine 5-10/HPF (0-5/HPF)
== END 2020-05-15 19:57 | disposition home or self-care (01) ==
PROVIDERS: Emergency Medicine; Emergency Provider Emergency Medicine; PCP Internal Medicine
DX: N39.0 Urinary tract infection, site not specified (principal); N90.89 Other specified noninflammatory disorders of vulva and perineum; K59.00 Constipation, unspecified; R10.9 Unspecified abdominal pain
CPT/HCPCS: 36415; 74019; 80053; 81003; 81015; 83690; 85025; 85610; 85730; 87077; 87086; 87147; 87186; 93005; 99283; 99284

== ENCOUNTER → 2020-07-28 11:55 | Outpatient (CLI) | payer MEDICARE, OTHER, SELFPAY ==
[2020-01-16 20:36] VITALS: BMI 20.7
[2020-07-28 12:50] LABS: Add Manual Diff / Slide Review NO; Basophils Absolute Auto 0 /uL (0-100); Basophils Percent Auto 0.7 % (0-2); Eosinophils Absolute Auto 100 /uL (0-450); Eosinophils Percent Auto 1.6 % (2-4); Hematocrit 30.3 % (36-46); Hemoglobin 9.7 g/dL (12.0-16.0); Lymphocytes Absolute Auto 900 /uL (1100-4500); Lymphocytes Percent Auto 21.1 % (25-40); Mean Corpuscular Hemoglobin 27.5 PG (26-34); Mean Corpuscular Volume 85.9 fL (80-100); Monocytes Absolute Auto 300 /uL (0-900); Monocytes Percent Auto 7.6 % (3-14); Neutrophils Absolute Auto 3100 /uL (1500-7000); Platelet Count 245 X10^3/uL (150-400); Red Blood Cell Count 3.52 X10^6/uL (4.0-5.2); Red Cell Distribution Width 14.8 % (11.6-14.8); White Blood Cell Count 4.5 X10^3/uL (4.5-11.0)
[2020-07-28 13:06] LABS: BUN Creatinine Ratio 23.3 (6-22); Blood Urea Nitrogen 17 mg/dL (7-17); Calcium 9.6 mg/dL (8.4-10.2); Carbon Dioxide 32 mmol/L (22-32); Chloride 95 mmol/L (98-107); Estimated Glomerular Filt Rate > 60.0 mL/min (>60); Glucose 98 mg/dL (80-110); HEMOLYSIS < 15 (0-50); Potassium 3.4 mmol/L (3.4-5.1); Sodium 134 mmol/L (137-145)
== END ==
PROVIDERS: PCP Internal Medicine; Referring Provider Internal Medicine; Visit Provider Internal Medicine
DX: I10 Essential (primary) hypertension (principal); D50.0 Iron deficiency anemia secondary to blood loss (chronic)
CPT/HCPCS: 36415; 80048; 85025

== ENCOUNTER → 2020-08-06 15:28 | Outpatient (ROUT) | payer MEDICARE, OTHER, SELFPAY ==
[2020-01-16 20:36] VITALS: BMI 20.7
[2020-08-06 16:41] LABS: HEMOLYSIS < 15 (0-50); Iron 37 ug/dL (37-170)
[2020-08-06 16:45] LABS: BUN Creatinine Ratio 37.5 (6-22); Blood Urea Nitrogen 30 mg/dL (7-17); Calcium 9.2 mg/dL (8.4-10.2); Carbon Dioxide 31 mmol/L (22-32); Chloride 95 mmol/L (98-107); Estimated Glomerular Filt Rate > 60.0 mL/min (>60); Glucose 87 mg/dL (80-110); HEMOLYSIS < 15 (0-50); Potassium 3.5 mmol/L (3.4-5.1); Sodium 134 mmol/L (137-145)
[2020-08-06 16:54] LABS: Percent Iron Saturation 8 % (15-50); Total Iron Binding Capacity 442 ug/dL (265-497); Transferrin 355 mg/dL (206-381)
[2020-08-06 17:21] LABS: Ferritin 9 ng/mL (11-264)
== END ==
PROVIDERS: PCP Internal Medicine; Visit Provider Internal Medicine
DX: D64.9 Anemia, unspecified (principal)
CPT/HCPCS: 80048; 82728; 83540; 83550

== ENCOUNTER → 2021-02-24 15:12 | Outpatient (CLI) | payer MEDICARE, OTHER, SELFPAY ==
[2020-01-16 20:36] VITALS: BMI 20.7
[2021-02-24 16:05] LABS: COVID19 -Nasal RAPID Negative (Negative)
== END ==
PROVIDERS: PCP Internal Medicine; Visit Provider Physician Assistant
DX: Z20.822 Contact with and (suspected) exposure to COVID-19 (principal)
CPT/HCPCS: 87635

== ENCOUNTER 2021-05-10 09:44 | Inpatient (IN) | payer MEDICARE, OTHER, SELFPAY ==
[2020-01-16 20:36] VITALS: BMI 20.7
[2021-05-10] VITALS (16 sets, daily range): BP systolic 135–167; BP diastolic 71–98; PULSE 67–93; RESP 18–96; TEMP 36.3–37.1; O2SAT 93–98; BMI 19.5
--- NOTE | 2021-05-10 10:03 | ED.AMS ---
HPI - Altered Mental Status General Chief Complaint: Altered Mental Status Stated Complaint: AMS Time Seen by Provider: 05/10/21 10:00 Source: EMS Mode of arrival: EMS Limitations: altered mental status History of Present Illness HPI narrative: This is a 81-year-old female who comes to the emergency department with complaint of confusion. She presented to her primary care clinic. She is sent by EMS. They describe her as being slightly for in epic but alert patient ambulated in the department without issue. She is confused she knows her name but believe she still at the clinic. She is able to tell me that she hurts in her bottom but when asked if it hurts at the rectal area she states no but repeats that she needs to urinate and has urinated several times here in the department. She is not able to give me much history otherwise. She denies chest pain or shortness of breath. No nausea or vomiting or GI or urinary symptoms are described EMS. Patient's family is not at bedside to give history for additional information. Related Data Home Medications Medication Instructions Recorded Confirmed acetaminophen 500 mg tablet 500 mg PO Q6H PRN 07/24/17 05/10/21 cyclosporine 0.05 % eye drops in a 1 drp OPHTHALMIC (EYE) BID 07/24/17 05/10/21 dropperette (Restasis) estradiol 1 g VAGINAL DIRECTED 07/24/17 05/10/21 memantine 10 mg tablet 10 mg PO BID 07/24/17 05/10/21 chlorthalidone 50 mg tablet 50 mg PO DAILY 05/10/21 05/10/21 docusate sodium 100 mg capsule 100 mg PO BEDTIME PRN 05/10/21 05/10/21 (Colace) duloxetine 30 mg capsule,delayed 30 mg PO DAILY 05/10/21 05/10/21 release furosemide 40 mg tablet 40 mg PO DAILY 05/10/21 05/10/21 losartan 25 mg tablet 25 mg PO DAILY 05/10/21 05/10/21 pregabalin 100 mg capsule 100 mg PO BID 05/10/21 05/10/21 Previous Rx's Medication Instructions Recorded erenumab-aooe 140 mg/mL 140 mg SUBCUT QMONTH #1 ml 11/13/18 subcutaneous auto-injector (Aimovig Autoinjector) sumatriptan succinate 100 mg tablet See Rx Instructions PO .COMPLEX 12/17/18 #10 tab trazodone 150 mg tablet 150 mg PO BEDTIME #15 tab 01/19/20 Allergies Allergy/AdvReac Type Severity Reaction Status Date / Time baclofen [BACLOFEN] Allergy Unknown Verified 01/14/20 13:49 cyclobenzaprine Allergy Unknown Verified 01/14/20 13:49 [From FLEXERIL] nortriptyline [NORTRIPTYLINE] Allergy Unknown Verified 01/14/20 13:49 Sulfa (Sulfonamide AdvReac Mild vomiting Verified 01/14/20 13:49 Antibiotics) [SULFA (SULFONAMIDE ANTIBIOTICS)] pantoprazole [From PROTONIX] AdvReac Unknown NAUSEA/DIAR Verified 01/14/20 13:49 SEAN Review of Systems Review of Systems ROS Unobtainable: All systems reviewed & are unremarkable except as noted in HPI and below Patient History Medical History Anxiety Chronic pain syndrome Chronic rectal pain Cough Degenerative arthritis Dementia Depression History of femur fracture Hypertension Irritable bowel syndrome (IBS) Migraine Orthopnea Peptic ulcer hemorrhage Spinal stenosis Surgical History H/O: hysterectomy History of appendectomy Social History household members: spouse caregiver/support person: Yes other: She drinks about 2 alcoholic beverages a week. No cigarette smoking Smoking Status: Never smoker Smoking Status: Never smoker alcohol intake frequency: a few times a month Substance Use Type: does not use Exam Narrative Exam Narrative: GENERAL: Alert and oriented to self, female in mild distress. HEENT: Head normocephalic, atraumatic, EOMI, pupils reactive, face symmetric, moist mucous membranes NECK: Supple, full range of motion CARDIOVASCULAR: Regular rate and rhythm without murmurs, rubs or gallops. RESPIRATORY: Breath sounds equal bilaterally, no wheezes rales or rhonchi. ABDOMEN: Soft, nontender, slightly distended.Normoactive bowel sounds all 4 quadrants. No guarding or rebound, rigidity, no mass : No CVA tenderness EXTREMITIES: Normal range of motion, no clubbing or edema. Neurovascularly intact NEUROLOGICAL: Cranial nerves II through XII grossly intact. Moving all extremities. 5/5 muscle strength. Patient has full range of motion. Patient is able to stand and ambulate without assistance even sit on the commode wipe herself and get back in the bed. Patient is confused GCS of 14. SKIN: Warm, dry, no petechiae, no rashes or lesions. Initial Vital Signs Initial Vital Signs: Vital Signs Temperature 98.1 F 05/10/21 10:00 Pulse Rate 93 H 05/10/21 10:00 Respiratory Rate 24 05/10/21 10:00 Blood Pressure 135/86 05/10/21 10:00 Pulse Oximetry 96 05/10/21 10:00 Scores GCS Patsy coma scale eye opening: Spontaneous Patsy coma scale verbal response: Confused Patsy coma scale motor response: Obey commands Patsy coma scale total score: 14 Course Orders Ordered: ED Orders 05/10/21 11:07 COVID19 -Nasal swab/Pre-Proc Stat Docusate Sodium (Docusate 100 Mg Capsule) 100 mg PO BID PRN PRN Reason: Constipation Duloxetine HCl (Duloxetine 30 Mg Capsule) 30 mg PO DAILY [facility] Enoxaparin Sodium (Enoxaparin 40 Mg/0.4 Ml Syringe) 40 mg SUBCUT DAILY [facility] Furosemide (Furosemide 40 Mg Tablet) 40 mg PO DAILY [facility] Acetylcysteine 4.5 g/ Dextrose 1,022.5 mls @ 63.906 mls/hr IV 1700 ONE Stop: 05/11/21 08:59 Last Admin: 05/10/21 17:19 Dose: 63.906 mls/hr Documented by: CMCFARL Sodium Chloride (Normal Saline 0.9%) 1,000 mls @ 150 mls/hr IV CONT COURTNEY Last Admin: 05/10/21 15:26 Dose: 150 mls/hr Documented by: CMCFARL Losartan Potassium (Losartan 25 Mg Tablet) 25 mg PO DAILY [facility] Memantine (Memantine Hcl 5 Mg Tablet) 10 mg PO BID [facility] Naloxone HCl (Naloxone 0.4 Mg/Ml Vial) 0.2 mg IV Q2MIN PRN PRN Reason: Opiate Reversal Stored In Pharmacy 0 each PO . [facility] Ondansetron HCl (Ondansetron 4 Mg/2 Ml Inj) 4 mg IV Q8HR PRN PRN Reason: Nausea And Vomiting Oxycodone HCl (Oxycodone Ir 5 Mg Tablet) 5 mg PO Q4HR PRN PRN Reason: Pain, Moderate (4-6) Last Admin: 05/10/21 17:18 Dose: 5 mg Documented by: SHAMA Pregabalin (Pregabalin 50 Mg Capsule) 100 mg PO BID [facility] Tramadol HCl (Tramadol 50 Mg Tablet) 50 mg PO Q4H PRN PRN Reason: Pain, Moderate (4-6) Last Admin: 05/10/21 15:21 Dose: 50 mg Documented by: SHAMA Discontinued Medications Acetaminophen (Acetaminophen 325 Mg Tablet) 975 mg PO Q8HR COURTNEY Sodium Chloride (Normal Saline 0.9%) 1,000 mls @ 150 mls/hr IV CONT COURTNEY Last Infusion: 05/10/21 13:45 Dose: 150 mls/hr Documented by: Admin: 05/10/21 11:47 Dose: 150 mls/hr Documented by: VINAY POTASSIUM CHLORIDE IN WATER (Potassium Cl 10 Meq/100 Ml Vijaya) 10 meq in 100 mls @ 100 mls/hr IV Q1H COURTNEY Stop: 05/10/21 15:14 Last Infusion: 05/10/21 19:03 Dose: 0 mls/hr Documented by: Admin: 05/10/21 15:23 Dose: 100 mls/hr Documented by: Infusion: 05/10/21 15:10 Dose: 100 mls/hr Documented by: Admin: 05/10/21 14:10 Dose: 100 mls/hr Documented by: Infusion: 05/10/21 14:00 Dose: 100 mls/hr Documented by: Admin: 05/10/21 13:00 Dose: 100 mls/hr Documented by: Infusion: 05/10/21 13:00 Dose: 0 mls/hr Documented by: Admin: 05/10/21 11:59 Dose: 100 mls/hr Documented by: VINAY Ceftriaxone Sodium 2,000 mg/ (Sodium Chloride) 100 mls @ 200 mls/hr IV NOW ONE Stop: 05/10/21 11:17 Last Infusion: 05/10/21 13:01 Dose: 0 mls/hr Documented by: Admin: 05/10/21 11:47 Dose: 200 mls/hr Documented by: VINAY Acetylcysteine 6.8 g/ Dextrose 284 mls @ 284 mls/hr IV NOW ONE Stop: 05/10/21 12:29 Last Infusion: 05/10/21 13:01 Dose: 0 mls/hr Documented by: Admin: 05/10/21 11:59 Dose: 284 mls/hr Documented by: VINAY Acetylcysteine 2.3 g/ Dextrose 511.5 mls @ 127.875 mls/hr IV 1300 ONE Stop: 05/10/21 16:59 Last Infusion: 05/10/21 19:18 Dose: 0 mls/hr Documented by: Infusion: 05/10/21 13:45 Dose: 127.875 mls/hr Documented by: Admin: 05/10/21 13:02 Dose: 127.875 mls/hr Documented by: SANDRA Potassium Chloride (Potassium Chloride 20 Meq Tab) 40 meq PO NOW ONE Stop: 05/10/21 11:05 Last Admin: 05/10/21 12:01 Dose: 40 meq Documented by: VINAY Reevaluation(s) Reevaluation #1: Patient had some improvement in mentations after krause catheter and has had 400cc out immediately after urinating twice in the commode. Reevaluation #2: Patient's partner, Dalton arrived. Time: 11:47 Consultations Consultation #1: Poison control, spoke with Yulissa. Discussed patient with acute alteration in mental status, elevated Tylenol level in the setting of normal LFTs at this time. They do recommend initiating NAC for 21 hour at this time was no clear onset. This is the 1 hour, 4 hour and 16 hr protocol. To check LFTs 2 hours before the end of the 21 hour protocol. If INR is greater than 2 patient is to continue with a 2nd round of neck. They suspect possibly Tylenol p.m. overdose based on the agitation and mental status changes in urinary retention. They recommend monitoring EKG with QRS greater than 110 to give bicarb bolus, QTC greater than 500 to give Mag and to maintain Mag > 2 with a potassium greater than 4. They do recommend a repeat Tylenol level as well. Consultation #2: Dr. Duran, patient with altered mental status unclear exact onset as have not been able to talk with family the patient was at primary care office and sent here. Patient has no focal deficits other than confusion and is ambulatory with clear speech. Suspected Tylenol and possibly Tylenol p.m. overdose. Patient's Tylenol level significantly elevated, urine does show nitrates. Recommendations from poison Control discussed. Plan for inpatient admission. Time: 11:45 Vital Signs Vital signs: Vital Signs - 8 hr 05/10/21 11:30 Pulse Rate 74 Respiratory Rate 27 H Blood Pressure 138/84 Pulse Oximetry 93 MDM - Altered Mental Status Lab Data Result diagrams: 05/10/21 09:50 05/10/21 09:50 Labs: Lab Results 05/10/21 05/10/21 05/10/21 Range/Units 09:50 09:50 09:50 WBC 3.4 L (4.5-11.0) X10^3/uL RBC 4.29 (4.0-5.2) X10^6/uL Hgb 12.7 (12.0-16.0) g/dL Hct 37.9 (36-46) % MCV 88.5 (80-100) fL MCH 29.6 (26-34) PG MCHC 33.4 (30-36) % RDW 18.7 H (11.6-14.8) % Plt Count 175 (150-400) X10^3/uL Neut % (Auto) 53.5 (50-75) % Lymph % (Auto) 31.4 (25-40) % [place] % (Auto) 12.3 (3-14) % Eos % (Auto) 2.4 (2-4) % Baso % (Auto) 0.4 (0-2) % Neut # (Auto) 1800 (4869-9555) /uL Lymph # (Auto) 1100 (3293-9343) /uL [place] # (Auto) 400 (0-900) /uL Eos # (Auto) 100 (0-450) /uL Baso # (Auto) 0 (0-100) /uL PT (10.1-12.7) SECONDS INR (0.9-1.3) APTT (26.4-36.2) SECONDS Sodium 141 (137-145) mmol/L Potassium 2.8 L (3.4-5.1) mmol/L Chloride 102 (98-107) mmol/L Carbon Dioxide 28 (22-32) mmol/L BUN 26 H (7-17) mg/dL Creatinine 0.87 (0.52-1.04) mg/dL Estimated GFR > 60.0 (>60) mL/min BUN/Creatinine Ratio 29.9 H (6-22) Glucose 105 (80-110) mg/dL Lactate 1.6 (0.7-2.1) mmol/L Calcium 9.5 (8.4-10.2) mg/dL Magnesium (1.6-2.3) mg/dL Total Bilirubin 0.5 (0.2-1.3) mg/dL AST 42 H (14-36) IU/L ALT 23 (<35) IU/L Alkaline Phosphatase 83 (38-126) U/L Total Creatine Kinase 119 (30-135) U/L CK-MB (CK-2) 3.04 H (<2.37) ng/mL CK-MB (CK-2) Rel Index 2.6 (1.5-5.0) % Troponin I < 0.012 (0.01-0.034) ng/mL Total Protein 8.2 (6.3-8.2) g/dL Albumin 4.9 (3.5-5.0) g/dL Globulin 3.3 (1.7-4.1) g/dL Albumin/Globulin Ratio 1.5 (1.0-2.8) TSH (0.47-4.68) uIU/mL Prolactin 23.3 H (3.0-18.6) ng/mL Urine Color Urine Appearance Urine pH (4.5-8.0) Ur Specific Mcmillan (1.000-1.035) Urine Protein (Negative) Urine Glucose (UA) (Negative) g/dL Urine Ketones (NEGATIVE) Urine Occult Blood (Negative) Urine Nitrate (Negative) Urine Bilirubin (NEGATIVE) Urine Urobilinogen (0.2) E.U./dL Ur Leukocyte Esterase (NEGATIVE) Urine RBC (0-5/HPF) Urine WBC (0-5/HPF) Ur Squamous Epith Cells (0-5/HPF) Urine Bacteria (None) Hyaline Casts (None) Ur Culture Indicated? Salicylates < 1.0 (<20) mg/dL U Opiates 300ng/mL cut (Negative) Ur Oxycodone Screen (Negative) Urine Methadone Screen (Negative) Acetaminophen 147 H* (10-30) ug/mL Ur Barbiturates Screen (Negative) U Tricyclic Antidepress (Negative) Ur Phencyclidine Scrn (Negative) Ur Amphetamines Screen (Negative) U Methamphetamines Scrn (Negative) Ur MDMA Scrn (Ecstasy) (Negative) U Benzodiazepines Scrn (Negative) Urine Cocaine Screen (Negative) U Marijuana (THC) Screen (Negative) Ethyl Alcohol < 10 ( - 10) mg/dL SARS-CoV-2 (PCR) (Negative) 05/10/21 05/10/21 05/10/21 Range/Units 09:50 09:50 09:50 WBC (4.5-11.0) X10^3/uL RBC (4.0-5.2) X10^6/uL Hgb (12.0-16.0) g/dL Hct (36-46) % MCV (80-100) fL MCH (26-34) PG MCHC (30-36) % RDW (11.6-14.8) % Plt Count (150-400) X10^3/uL Neut % (Auto) (50-75) % Lymph % (Auto) (25-40) % [place] % (Auto) (3-14) % Eos % (Auto) (2-4) % Baso % (Auto) (0-2) % Neut # (Auto) (6090-8542) /uL Lymph # (Auto) (1407-5214) /uL [place] # (Auto) (0-900) /uL Eos # (Auto) (0-450) /uL Baso # (Auto) (0-100) /uL PT 11.1 (10.1-12.7) SECONDS INR 1.0 (0.9-1.3) APTT 31 (26.4-36.2) SECONDS Sodium (137-145) mmol/L Potassium (3.4-5.1) mmol/L Chloride (98-107) mmol/L Carbon Dioxide (22-32) mmol/L BUN (7-17) mg/dL Creatinine (0.52-1.04) mg/dL Estimated GFR (>60) mL/min BUN/Creatinine Ratio (6-22) Glucose (80-110) mg/dL Lactate (0.7-2.1) mmol/L Calcium (8.4-10.2) mg/dL Magnesium 2.0 (1.6-2.3) mg/dL Total Bilirubin (0.2-1.3) mg/dL AST (14-36) IU/L ALT (<35) IU/L Alkaline Phosphatase (38-126) U/L Total Creatine Kinase (30-135) U/L CK-MB (CK-2) (<2.37) ng/mL CK-MB (CK-2) Rel Index (1.5-5.0) % Troponin I (0.01-0.034) ng/mL Total Protein (6.3-8.2) g/dL Albumin (3.5-5.0) g/dL Globulin (1.7-4.1) g/dL Albumin/Globulin Ratio (1.0-2.8) TSH 0.610 (0.47-4.68) uIU/mL Prolactin (3.0-18.6) ng/mL Urine Color Urine Appearance Urine pH (4.5-8.0) Ur Specific Mcmillan (1.000-1.035) Urine Protein (Negative) Urine Glucose (UA) (Negative) g/dL Urine Ketones (NEGATIVE) Urine Occult Blood (Negative) Urine Nitrate (Negative) Urine Bilirubin (NEGATIVE) Urine Urobilinogen (0.2) E.U./dL Ur Leukocyte Esterase (NEGATIVE) Urine RBC (0-5/HPF) Urine WBC (0-5/HPF) Ur Squamous Epith Cells (0-5/HPF) Urine Bacteria (None) Hyaline Casts (None) Ur Culture Indicated? Salicylates (<20) mg/dL U Opiates 300ng/mL cut (Negative) Ur Oxycodone Screen (Negative) Urine Methadone Screen (Negative) Acetaminophen (10-30) ug/mL Ur Barbiturates Screen (Negative) U Tricyclic Antidepress (Negative) Ur Phencyclidine Scrn (Negative) Ur Amphetamines Screen (Negative) U Methamphetamines Scrn (Negative) Ur MDMA Scrn (Ecstasy) (Negative) U Benzodiazepines Scrn (Negative) Urine Cocaine Screen (Negative) U Marijuana (THC) Screen (Negative) Ethyl Alcohol ( - 10) mg/dL SARS-CoV-2 (PCR) (Negative) 05/10/21 05/10/21 05/10/21 Range/Units 10:13 10:13 11:07 WBC (4.5-11.0) X10^3/uL RBC (4.0-5.2) X10^6/uL Hgb (12.0-16.0) g/dL Hct (36-46) % MCV (80-100) fL MCH (26-34) PG MCHC (30-36) % RDW (11.6-14.8) % Plt Count (150-400) X10^3/uL Neut % (Auto) (50-75) % Lymph % (Auto) (25-40) % [place] % (Auto) (3-14) % Eos % (Auto) (2-4) % Baso % (Auto) (0-2) % Neut # (Auto) (9176-1086) /uL Lymph # (Auto) (9577-7878) /uL [place] # (Auto) (0-900) /uL Eos # (Auto) (0-450) /uL Baso # (Auto) (0-100) /uL PT (10.1-12.7) SECONDS INR (0.9-1.3) APTT (26.4-36.2) SECONDS Sodium (137-145) mmol/L Potassium (3.4-5.1) mmol/L Chloride (98-107) mmol/L Carbon Dioxide (22-32) mmol/L BUN (7-17) mg/dL Creatinine (0.52-1.04) mg/dL Estimated GFR (>60) mL/min BUN/Creatinine Ratio (6-22) Glucose (80-110) mg/dL Lactate (0.7-2.1) mmol/L Calcium (8.4-10.2) mg/dL Magnesium (1.6-2.3) mg/dL Total Bilirubin (0.2-1.3) mg/dL AST (14-36) IU/L ALT (<35) IU/L Alkaline Phosphatase (38-126) U/L Total Creatine Kinase (30-135) U/L CK-MB (CK-2) (<2.37) ng/mL CK-MB (CK-2) Rel Index (1.5-5.0) % Troponin I (0.01-0.034) ng/mL Total Protein (6.3-8.2) g/dL Albumin (3.5-5.0) g/dL Globulin (1.7-4.1) g/dL Albumin/Globulin Ratio (1.0-2.8) TSH (0.47-4.68) uIU/mL Prolactin (3.0-18.6) ng/mL Urine Color Yellow Urine Appearance Sl cloudy Urine pH 6.0 (4.5-8.0) Ur Specific [place]millan 1.015 (1.000-1.035) Urine Protein Negative (Negative) Urine Glucose (UA) Negative (Negative) g/dL Urine Ketones Negative (NEGATIVE) Urine Occult Blood Negative (Negative) Urine Nitrate Positive H (Negative) Urine Bilirubin Negative (NEGATIVE) Urine Urobilinogen 0.2 (0.2) E.U./dL Ur Leukocyte Esterase Negative (NEGATIVE) Urine RBC 0-1/hpf (0-5/HPF) Urine WBC 5-10/hpf H (0-5/HPF) Ur Squamous Epith Cells 1-5 /hpf (0-5/HPF) Urine Bacteria Many (>30) H (None) Hyaline Casts 1-5/lpf (None) Ur Culture Indicated? Specimen cultured Salicylates (<20) mg/dL U Opiates 300ng/mL cut Negative (Negative) Ur Oxycodone Screen Negative (Negative) Urine Methadone Screen Negative (Negative) Acetaminophen (10-30) ug/mL Ur Barbiturates Screen Negative (Negative) U Tricyclic Antidepress Negative (Negative) Ur Phencyclidine Scrn Negative (Negative) Ur Amphetamines Screen Negative (Negative) U Methamphetamines Scrn Negative (Negative) Ur MDMA Scrn (Ecstasy) Negative (Negative) U Benzodiazepines Scrn Negative (Negative) Urine Cocaine Screen Negative (Negative) U Marijuana (THC) Screen Negative (Negative) Ethyl Alcohol ( - 10) mg/dL SARS-CoV-2 (PCR) Negative (Negative) Point of Care Testing Glucose POC 105 Urine Dip Bedside Urine Glucose Negative Bedside Urine Bilirubin - Negative Bedside Urine Ketone - Negative Urine Specific Mcmillan 1.015 Bedside Urine Occult Blood - Negative Bedside Urine pH 6.0 Bedside Urine Protein - Negative Bedside Urine Urobilinogen - Negative Bedside Urine Nitrite + Positive Bedside Urine Leukocytes - Negative Esterase Imaging Data CT scan - head: Radiologist's Impression: [address] [address] [address] Scan Report Signed Patient: Elizabeth Parker MR#: [id number] : 1940 Acct:[id number] Age/Sex: 81 / F Date of Service: 05/10/21 Loc: ED Accession Number: [id number] ?? Procedure: CT abdomen pelvis w con Ordering Provider: Sally Dixon D.O. PROCEDURE:? CT ABDOMEN PELVIS W CON ? INDICATIONS:? lower abd pain, altered mental status ? TECHNIQUE:? After the administration of oral and IV contrast, axial sections were acquired from the lung bases to the pubic symphysis.? Coronal and sagittal reformats were performed.? For radiation dose reduction, the following was used:? automated exposure control, adjustment of mA and/or kV according to patient size. ? COMPARISON:? [facility], CT, CT ABDOMEN PELVIS W CON, 01/17/2020, 8:43. ? FINDINGS:? Image quality:? Fair.? Mild motion artifact. ? Lung bases:? Interlobular septal thickening.? Bibasilar streaky opacity which has the appearance of atelectasis.? Small consolidation at the right lung base.? ? Heart:? Prominent size.? Coronary artery calcifications. ? ? ABDOMEN: Liver:? Small cyst in the right lobe of the liver. Gallbladder:? Distended.? No calcified gallstones identified. Biliary ducts:? Common hepatic duct is prominent measuring 1 cm, (07/02), previously 1.3 cm on 01/17/2020.? CBD tapers distally.? No filling defect is identified.? There is increased conspicuity of the bile ducts in the liver. Pancreas:? No peripancreatic fluid collection. Spleen:? Unremarkable.? ? Adrenal Glands:? Unremarkable.? ? Kidneys and Ureters:? No hydronephrosis. ? Stomach and Bowel:? Rectosigmoid colon anastomosis.? There is prominent stool in the cecum and distal colon.? No small bowel obstruction. Peritoneum:? No abnormal intraperitoneal fluid.? No free air.? ? Ventral Wall: ? No hernia.? Abdominal Nodes:? No retroperitoneal or mesenteric adenopathy by size criteria.? Vessels:? Aorta and inferior vena cava are normal in size.? Moderate atherosclerotic plaque.? ? PELVIS: Pelvic Organs:? Probable small right ovarian cyst measuring 2 cm, () appears similar. ?Uterus is absent. ? Bladder:? Krause catheter is in place.? ? Pelvic Nodes: No enlarged lymph nodes.? Miscellaneous: No inguinal hernias are seen. ? ? ? Bones:? Marked scoliosis.? Bone island at the right femoral neck.? T8 intraosseous hemangioma. ? ? IMPRESSION:? 1. Distended gallbladder.? No pericholecystic fluid is identified.? Consider further evaluation with ultrasound. ? 2. Prominent bile ducts are again seen. ? 3. No hydronephrosis. ? 4. No small bowel obstruction.? No free fluid.? Somewhat prominent stool in the cecum and rectum. ? ? Dictated by: Seun Stiles M.D. on 05/10/2021 at 11:12 ? ? Approved by: Seun Stiles M.D. on 05/10/2021 at 11:23?? CT scan - abdomen/pelvis: Radiologist's Impression: [address] [address] [address] Scan Report Signed Patient: Elizabeth Parker MR#: [id number] : 1940 Acct:[id number] Age/Sex: 81 / F Date of Service: 05/10/21 Loc: ED Accession Number: [id number] ?? Procedure: CT abdomen pelvis w con Ordering Provider: Sally Dixon D.O. PROCEDURE:? CT ABDOMEN PELVIS W CON ? INDICATIONS:? lower abd pain, altered mental status ? TECHNIQUE:? After the administration of oral and IV contrast, axial sections were acquired from the lung bases to the pubic symphysis.? Coronal and sagittal reformats were performed.? For radiation dose reduction, the following was used:? automated exposure control, adjustment of mA and/or kV according to patient size. ? COMPARISON:? [facility], CT, CT ABDOMEN PELVIS W CON, 01/17/2020, 8:43. ? FINDINGS:? Image quality:? Fair.? Mild motion artifact. ? Lung bases:? Interlobular septal thickening.? Bibasilar streaky opacity which has the appearance of atelectasis.? Small consolidation at the right lung base.? ? Heart:? Prominent size.? Coronary artery calcifications. ? ? ABDOMEN: Liver:? Small cyst in the right lobe of the liver. Gallbladder:? Distended.? No calcified gallstones identified. Biliary ducts:? Common hepatic duct is prominent measuring 1 cm, (07/02), previously 1.3 cm on 01/17/2020.? CBD tapers distally.? No filling defect is identified.? There is increased conspicuity of the bile ducts in the liver. Pancreas:? No peripancreatic fluid collection. Spleen:? Unremarkable.? ? Adrenal Glands:? Unremarkable.? ? Kidneys and Ureters:? No hydronephrosis. ? Stomach and Bowel:? Rectosigmoid colon anastomosis.? There is prominent stool in the cecum and distal colon.? No small bowel obstruction. Peritoneum:? No abnormal intraperitoneal fluid.? No free air.? ? Ventral Wall: ? No hernia.? Abdominal Nodes:? No retroperitoneal or mesenteric adenopathy by size criteria.? Vessels:? Aorta and inferior vena cava are normal in size.? Moderate atherosclerotic plaque.? ? PELVIS: Pelvic Organs:? Probable small right ovarian cyst measuring 2 cm, () appears similar. ?Uterus is absent. ? Bladder:? Krause catheter is in place.? ? Pelvic Nodes: No enlarged lymph nodes.? Miscellaneous: No inguinal hernias are seen. ? ? ? Bones:? Marked scoliosis.? Bone island at the right femoral neck.? T8 intraosseous hemangioma. ? ? IMPRESSION:? 1. Distended gallbladder.? No pericholecystic fluid is identified.? Consider further evaluation with ultrasound. ? 2. Prominent bile ducts are again seen. ? 3. No hydronephrosis. ? 4. No small bowel obstruction.? No free fluid.? Somewhat prominent stool in the cecum and rectum. ? ? Dictated by: Seun Stiles M.D. on 05/10/2021 at 11:12 ? ? Approved by: Seun Stiles M.D. on 05/10/2021 at 11:23?? ECG Data Attestation: I personally reviewed and interpreted this ECG as follows: Interpretation: Normal sinus rhythm. No acute ST changes appreciated. Nonspecific. Rate of 90, [place] 178 QRS is 78 QTC 459. Been here fascicular block. Q wave V1-V3. MDM Narrative Medical decision making narrative: This is a 81-year-old female who arrives with altered mental status unclear onset she comes via EMS from [facility]. Patient is clearly confused, altered and slightly agitated. She does not have any other focal neurologic deficits and is able to ambulate, and move without issue. Patient labs found elevated Tylenol the setting of normal LFTs nitrates in her urine. When asked directly patient denies any ingestions but also does seem confused and may not understand the question clearly. She denies any depression or suicidal thoughts. Patient vital signs are stable, EKG does not show any indications to initiate bicarb or Mag at this time. Recommendations from poison Control who suspected Tylenol p.m. overdose were initiated and patient is admitted to the hospitalist after head CT is negative, CT abdomen pelvis did show distended gallbladder but she is nontender on exam with no LFT changes seems unlikely cause of her symptoms in the setting with 2 potential causes with elevated Tylenol level and nitrates and bacteria in urine. Critical Care Time Critical Care Time Critical Care Time: Yes Total Critical Care Time: 45 Attestation: The high probability of a clinically significant, sudden or life threatening deterioration of the [] system(s) required my full and direct attention, intervention and personal management. The aggregate critical care time was [] minutes. This time is in addition to time spent performing reported procedures but includes the following: [x] Data Review and interpretation [x] Patient assessment and monitoring of vital signs [x] Documentation [x] Medication orders and management Discharge Plan Departure Patient Disposition: Admitted As Inpatient Clinical Impression: Tylenol overdose, UTI (urinary tract infection), Altered mental status Admit Date/Time: 05/10/21 11:44 Admit Provider: Kemi Duran
--- NOTE | 2021-05-10 10:05 | DI.RAD.S_ITS ---
PROCEDURE: XR CHEST 1V INDICATIONS: altered mental status. TECHNIQUE: One view of the chest was acquired. COMPARISON: [facility], , XR CHEST 1V, 01/16/2020, 16:04. FINDINGS: Surgical changes and devices: None. Lungs and pleura: Hyperinflated lungs with low lung volumes and asymmetrically elevated right hemidiaphragm. Probable atelectatic change in the right medial infrahilar region. No other consolidations, effusion, or pneumothorax. Mediastinum: Mediastinal contours appear normal. Heart size is normal. Bones and chest wall: No suspicious bony lesions. Overlying soft tissues appear unremarkable. Degenerative changes in both, clavicular joints. Moderate leftward scoliosis of the thoracic spine. IMPRESSION: Probable right infrahilar atelectatic change though small infiltrate is not excluded. This could also be result of aspiration. Dictated by: Hilary De Luna M.D. on 05/10/2021 at 10:27 Approved by: Hilary De Luna M.D. on 05/10/2021 at 10:29
--- NOTE | 2021-05-10 10:08 | DI.CT.S_ITS ---
PROCEDURE: CT HEAD/BRAIN WO CON INDICATIONS: altered mental status. TECHNIQUE: Noncontrast 4.5 mm thick angled axial sections acquired from the foramen magnum to the vertex, with coronal and sagittal reformats. For radiation dose reduction, the following was used: automated exposure control, adjustment of mA and/or kV according to patient size. COMPARISON: [facility], CT, CT HEAD/BRAIN WO CON, 01/16/2020, 16:24. FINDINGS: Image quality: Excellent. CSF spaces: Basal cisterns are patent. No extra-axial fluid collections. The ventricles are symmetric in size and shape. Brain: No intracranial bleeds or masses. There is cerebral volume loss for age, with resultant ventricular and sulcal prominence. There are mild periventricular and deep white matter chronic small vessel ischemic changes. There is intracranial internal carotid artery atherosclerosis and vascular ectasia. Skull and face: Calvarium and visualized facial bones appear intact, without suspicious lesions. Sinuses: Visualized sinuses and mastoids are clear. IMPRESSION: 1. No CT evidence of acute intracranial process. 2. Age-appropriate cerebral cortical volume loss and minor chronic microvascular ischemic changes. Dictated by: Hilary De Luna M.D. on 05/10/2021 at 10:31 Approved by: Hilary De Luna M.D. on 05/10/2021 at 10:35
[2021-05-10 10:15] LABS: Add Manual Diff / Slide Review NO; Basophils Absolute Auto 0 /uL (0-100); Basophils Percent Auto 0.4 % (0-2); Eosinophils Absolute Auto 100 /uL (0-450); Eosinophils Percent Auto 2.4 % (2-4); Hematocrit 37.9 % (36-46); Hemoglobin 12.7 g/dL (12.0-16.0); Lymphocytes Absolute Auto 1100 /uL (1100-4500); Lymphocytes Percent Auto 31.4 % (25-40); Mean Corpuscular HGB Conc 33.4 % (30-36); Mean Corpuscular Hemoglobin 29.6 PG (26-34); Mean Corpuscular Volume 88.5 fL (80-100); Monocytes Absolute Auto 400 /uL (0-900); Monocytes Percent Auto 12.3 % (3-14); Neutrophils Absolute Auto 1800 /uL (1500-7000); Neutrophils Percent Auto 53.5 % (50-75); Platelet Count 175 X10^3/uL (150-400); Red Blood Cell Count 4.29 X10^6/uL (4.0-5.2); Red Cell Distribution Width 18.7 % (11.6-14.8); White Blood Cell Count 3.4 X10^3/uL (4.5-11.0)
[2021-05-10 10:20] LABS: Lactate (Lactic Acid) 1.6 mmol/L (0.7-2.1)
[2021-05-10 10:22] LABS: Alanine Aminotransferase 23 IU/L (<35); Albumin 4.9 g/dL (3.5-5.0); Albumin Globulin Ratio 1.5 (1.0-2.8); Alkaline Phosphatase 83 U/L (38-126); Aspartate Aminotransferase 42 IU/L (14-36); BUN Creatinine Ratio 29.9 (6-22); Bilirubin Total 0.5 mg/dL (0.2-1.3); Blood Urea Nitrogen 26 mg/dL (7-17); Calcium 9.5 mg/dL (8.4-10.2); Carbon Dioxide 28 mmol/L (22-32); Chloride 102 mmol/L (98-107); Creatine Kinase 119 U/L (30-135); Estimated Glomerular Filt Rate > 60.0 mL/min (>60); Ethanol (ETOH) < 10 mg/dL; Globulin 3.3 g/dL (1.7-4.1); Glucose 105 mg/dL (80-110); Potassium 2.8 mmol/L (3.4-5.1); Salicylate < 1.0 mg/dL (<20); Sodium 141 mmol/L (137-145); Total Protein 8.2 g/dL (6.3-8.2)
[2021-05-10 10:33] LABS: Troponin I < 0.012 ng/mL (0.01-0.034)
[2021-05-10 10:36] LABS: Appearance Urine UA SL CLOUDY; Bilirubin Urine UA NEGATIVE (NEGATIVE); Color Urine UA YELLOW; Glucose Urine UA NEGATIVE (Negative); Ketones Urine UA NEGATIVE (NEGATIVE); Leukocyte Esterase Urine UA NEGATIVE (NEGATIVE); Nitrite Urine UA POSITIVE (Negative); Occult Blood Urine UA NEGATIVE (Negative); Protein Urine UA NEGATIVE (Negative); Specific Gravity Urine UA 1.015 (1.000-1.035); Urobilinogen Urine UA 0.2 E.U./dL (0.2)
[2021-05-10 10:37] LABS: CKMB % Relative Index 2.6 % (1.5-5.0); Creatine Kinase MB 3.04 ng/mL (<2.37); HEMOLYSIS 23 (0-50)
[2021-05-10 10:38] LABS: Prolactin 23.3 ng/mL (3.0-18.6)
[2021-05-10 10:39] LABS: Acetaminophen 147 ug/mL (10-30)
--- NOTE | 2021-05-10 10:41 | DI.CT.S_ITS ---
PROCEDURE: CT ABDOMEN PELVIS W CON INDICATIONS: lower abd pain, altered mental status TECHNIQUE: After the administration of oral and IV contrast, axial sections were acquired from the lung bases to the pubic symphysis. Coronal and sagittal reformats were performed. For radiation dose reduction, the following was used: automated exposure control, adjustment of mA and/or kV according to patient size. COMPARISON: [facility], CT, CT ABDOMEN PELVIS W CON, 01/17/2020, 8:43. FINDINGS: Image quality: Fair. Mild motion artifact. Lung bases: Interlobular septal thickening. Bibasilar streaky opacity which has the appearance of atelectasis. Small consolidation at the right lung base. Heart: Prominent size. Coronary artery calcifications. ABDOMEN: Liver: Small cyst in the right lobe of the liver. Gallbladder: Distended. No calcified gallstones identified. Biliary ducts: Common hepatic duct is prominent measuring 1 cm, (07/02), previously 1.3 cm on 01/17/2020. CBD tapers distally. No filling defect is identified. There is increased conspicuity of the bile ducts in the liver. Pancreas: No peripancreatic fluid collection. Spleen: Unremarkable. Adrenal Glands: Unremarkable. Kidneys and Ureters: No hydronephrosis. Stomach and Bowel: Rectosigmoid colon anastomosis. There is prominent stool in the cecum and distal colon. No small bowel obstruction. Peritoneum: No abnormal intraperitoneal fluid. No free air. Ventral Wall: No hernia. Abdominal Nodes: No retroperitoneal or mesenteric adenopathy by size criteria. Vessels: Aorta and inferior vena cava are normal in size. Moderate atherosclerotic plaque. PELVIS: Pelvic Organs: Probable small right ovarian cyst measuring 2 cm, (2/62) appears similar. Uterus is absent. Bladder: Castaneda catheter is in place. Pelvic Nodes: No enlarged lymph nodes. Miscellaneous: No inguinal hernias are seen. Bones: Marked scoliosis. Bone island at the right femoral neck. T8 intraosseous hemangioma. IMPRESSION: 1. Distended gallbladder. No pericholecystic fluid is identified. Consider further evaluation with ultrasound. 2. Prominent bile ducts are again seen. 3. No hydronephrosis. 4. No small bowel obstruction. No free fluid. Somewhat prominent stool in the cecum and rectum. Dictated by: Seun Stiles M.D. on 05/10/2021 at 11:12 Approved by: Seun Stiles M.D. on 05/10/2021 at 11:23
[2021-05-10 10:46] LABS: UR Morphine/Opiate cutoff 300 Negative (Negative); Ur Creatinine Normal (Normal); Ur Specific Gravity Normal (Normal); Urine Amphetamines Negative (Negative); Urine Barbiturates Negative (Negative); Urine Benzodiazepines Negative (Negative); Urine Cocaine Negative (Negative); Urine MDMA Negative (Negative); Urine Methadone Negative (Negative); Urine Methamphetamines Negative (Negative); Urine Oxycodone Negative (Negative); Urine Phencyclidine Negative (Negative); Urine Tetrahydrocannabinol Negative (Negative); Urine Tricyclic Antidepressant Negative (Negative); Urine pH Normal (Normal)
[2021-05-10 10:53] LABS: Bacteria Urine Many (>30); Culture Indicated Urine Specimen Cultured; Hyaline Casts Urine 1-5/LPF; RBC Urine 0-1/HPF (0-5/HPF); Squamous Epithelial Cell Urine 1-5 /HPF (0-5/HPF); WBC Urine 5-10/HPF (0-5/HPF)
[2021-05-10 10:58] LABS: Prothrombin Time 11.1 SECONDS (10.1-12.7)
[2021-05-10 11:01] LABS: PTT Partial Thromboplastin Tim 31 SECONDS (26.4-36.2)
[2021-05-10 11:43] LABS: COVID19 -Nasal RAPID Negative (Negative)
[2021-05-10] MEDS: cefTRIAXone 2,000 MG in SODIUM CHLORIDE 0.9% 100 ML 200 ML IV (11:47)
[2021-05-10] MEDS: SODIUM CHLORIDE 0.9% 1,000 ML 150 ML IV ×2 (11:47→15:26)
[2021-05-10] MEDS: DEXTROSE 5% IV ×3 (11:59→17:19)
[2021-05-10] MEDS: WATER IV ×3 (11:59→17:19)
[2021-05-10] MEDS: POTASSIUM CHLORIDE IN WATER 10 MEQ/100 ML PIGGYBACK 100 MEQ IV ×4 (11:59→15:23)
[2021-05-10] MEDS: ACETYLCYSTEINE IV ×3 (11:59→17:19)
[2021-05-10] MEDS: POTASSIUM CHLORIDE 20 MEQ TAB 40 MEQ PO (12:01)
--- NOTE | 2021-05-10 15:10 | PC.NURSE ---
Pt to room 209 from ER. Pt is awake and alert-appears anxious. Is oriented only to self, year, birthdate, and age. Bed alarm on for safety. Pt informed on use of call light, bed controls, and tv controls. IV's infusing as ordered. Pt denies nausea or shortness of breath. States she has chronic pain to her rectal area - and Dr. Duran is aware.
[2021-05-10] MEDS: TRAMADOL 50 MG TABLET PO ×2 (15:21→20:58)
[2021-05-10 15:26] LABS: Acetaminophen 53 ug/mL (10-30)
--- NOTE | 2021-05-10 16:11 | PT-IP ANOTE ---
Received PT orders and reviewed the chart. Attempted to evaluate the pt who was confused and perseverating on the absence of her partner, Dalton. She was also complaining of increasing rectal pain. RN informed. Pt agrees for PT to call her partner to establish PLOF and for PT to check on her again in the morning.
--- NOTE | 2021-05-10 17:08 | P.HP_ITS ---
History of Present Illness History of Present Illness Date Patient Seen: 05/10/21 Chief complaint: AMS Narrative: The patient is a 81-year-old female with a history of anxiety, chronic pain, chronic rectal pain, cough, dementia, depression, hypertension, who presents to the hospital with altered mental status. Patient went to see her primary care physician today. They noted she was quite confused and she was sent to the emergency room by EMS. She is confused and is unable to provide any history. Patient was found to have urinary retention in the emergency department and Castaneda catheter was placed. Head CT was negative. Patient denied any pain or shortness of breath. I urine tox screen was positive for Tylenol level of greater than 147. Patient was placed on in acetylcysteine, and is admitted to the hospital for further treatment and evaluation. Patient History Medical History Anxiety Chronic pain syndrome Chronic rectal pain Cough Degenerative arthritis Dementia Depression History of femur fracture Hypertension Irritable bowel syndrome (IBS) Migraine Orthopnea Peptic ulcer hemorrhage Spinal stenosis Surgical History H/O: hysterectomy History of appendectomy Family & Social History Social History: household members spouse Prior Living Arrangements House caregiver/support person Yes other She drinks about 2 alcoholic beverages a week. No cigarette smoking Safety & Behavioral: Feels Safe in Current Yes Environment Been Physically Hurt or No Threatened By a Person Suicidal Ideation Description None Tobacco & Substance use: Smoking Status Never smoker alcohol intake frequency a few times a month Substance Use Type does not use Meds Home Medications and Allergies Home Medications Medication Instructions Recorded Confirmed Type acetaminophen 500 mg tablet 500 mg PO Q6H PRN 07/24/17 05/10/21 History cyclosporine 0.05 % eye drops in a 1 drp OPHTHALMIC (EYE) BID 07/24/17 05/10/21 History dropperette (Restasis) estradiol 1 g VAGINAL DIRECTED 07/24/17 05/10/21 History memantine 10 mg tablet 10 mg PO BID 07/24/17 05/10/21 History erenumab-aooe 140 mg/mL 140 mg SUBCUT QMONTH #1 ml 11/13/18 05/10/21 Rx subcutaneous auto-injector (Aimovig Autoinjector) sumatriptan succinate 100 mg tablet See Rx Instructions PO .COMPLEX 12/17/18 05/10/21 Rx #10 tab trazodone 150 mg tablet 150 mg PO BEDTIME #15 tab 01/19/20 05/10/21 Rx chlorthalidone 50 mg tablet 50 mg PO DAILY 05/10/21 05/10/21 History docusate sodium 100 mg capsule 100 mg PO BEDTIME PRN 05/10/21 05/10/21 History (Colace) duloxetine 30 mg capsule,delayed 30 mg PO DAILY 05/10/21 05/10/21 History release furosemide 40 mg tablet 40 mg PO DAILY 05/10/21 05/10/21 History losartan 25 mg tablet 25 mg PO DAILY 05/10/21 05/10/21 History pregabalin 100 mg capsule 100 mg PO BID 05/10/21 05/10/21 History Allergies Allergy/AdvReac Type Severity Reaction Status Date / Time baclofen [BACLOFEN] Allergy Unknown Verified 01/14/20 13:49 cyclobenzaprine Allergy Unknown Verified 01/14/20 13:49 [From FLEXERIL] nortriptyline [NORTRIPTYLINE] Allergy Unknown Verified 01/14/20 13:49 Sulfa (Sulfonamide AdvReac Mild vomiting Verified 01/14/20 13:49 Antibiotics) [SULFA (SULFONAMIDE ANTIBIOTICS)] pantoprazole [From PROTONIX] AdvReac Unknown NAUSEA/DIAR Verified 01/14/20 13:49 SEAN Review of Systems Review of Systems Narrative: Unobtainable due to the patient's altered mental status Exam Vital Signs (past 8 hours): - 05/10/21 10:00 05/10/21 10:02 05/10/21 10:23 Temperature 98.1 F Pulse Rate 93 H 88 75 Respiratory Rate 24 26 H 18 Blood Pressure 135/86 143/87 H Pulse Oximetry 96 96 97 05/10/21 10:30 05/10/21 10:31 05/10/21 11:03 Temperature 98.1 F Pulse Rate 82 83 Respiratory Rate 29 H 31 H Blood Pressure 145/87 H Pulse Oximetry 96 05/10/21 11:04 05/10/21 11:30 05/10/21 12:00 Temperature Pulse Rate 71 74 75 Respiratory Rate 19 27 H 26 H Blood Pressure 160/84 H 138/84 147/87 H Pulse Oximetry 97 93 96 05/10/21 12:30 05/10/21 13:00 05/10/21 14:39 Temperature 97.9 F Pulse Rate 81 77 67 Respiratory Rate 43 H 34 H 96 H Blood Pressure 137/83 165/90 H 139/71 Pulse Oximetry 97 98 96 Oxygen Delivery Method Room Air Narrative Exam Narrative: Confused elderly female lying in bed [facility] Other: HEENT: Normocephalic atraumatic, extraocular muscles are intact, sclerae anicteric Neck Other: Neck is supple without adenopathy Resp Other: Lungs are clear to auscultation Cardio Other: Cardiac exam: Regular rate and rhythm normal S1-S2 GI Other: Abdomen soft nontender nondistended Neuro Other: Patient is confused and unable to follow commands Extrem Other: No edema Objective Labs Result Diagrams: 05/10/21 09:50 05/10/21 09:50 Labs: Laboratory Results - last 24 hr 05/10/21 05/10/21 05/10/21 09:50 09:50 09:50 WBC 3.4 L RBC 4.29 Hgb 12.7 Hct 37.9 MCV 88.5 MCH 29.6 MCHC 33.4 RDW 18.7 H Plt Count 175 Neut % (Auto) 53.5 Lymph % (Auto) 31.4 [place] % (Auto) 12.3 Eos % (Auto) 2.4 Baso % (Auto) 0.4 Neut # (Auto) 1800 Lymph # (Auto) 1100 [place] # (Auto) 400 Eos # (Auto) 100 Baso # (Auto) 0 PT INR APTT Sodium 141 Potassium 2.8 L Chloride 102 Carbon Dioxide 28 BUN 26 H Creatinine 0.87 Estimated GFR > 60.0 BUN/Creatinine Ratio 29.9 H Glucose 105 Lactate 1.6 Calcium 9.5 Magnesium Total Bilirubin 0.5 AST 42 H ALT 23 Alkaline Phosphatase 83 Total Creatine Kinase 119 CK-MB (CK-2) 3.04 H CK-MB (CK-2) Rel Index 2.6 Troponin I < 0.012 Total Protein 8.2 Albumin 4.9 Globulin 3.3 Albumin/Globulin Ratio 1.5 TSH Prolactin 23.3 H Urine Color Urine Appearance Urine pH Ur Specific [place] Urine Protein Urine Glucose (UA) Urine Ketones Urine Occult Blood Urine Nitrate Urine Bilirubin Urine Urobilinogen Ur Leukocyte Esterase Urine RBC Urine WBC Ur Squamous Epith Cells Urine Bacteria Hyaline Casts Ur Culture Indicated? Salicylates < 1.0 U Opiates 300ng/mL cut Ur Oxycodone Screen Urine Methadone Screen Acetaminophen 147 H* Ur Barbiturates Screen U Tricyclic Antidepress Ur Phencyclidine Scrn Ur Amphetamines Screen U Methamphetamines Scrn Ur MDMA Scrn (Ecstasy) U Benzodiazepines Scrn Urine Cocaine Screen U Marijuana (THC) Screen Ethyl Alcohol < 10 SARS-CoV-2 (PCR) 05/10/21 05/10/21 05/10/21 09:50 09:50 09:50 WBC RBC Hgb Hct MCV MCH MCHC RDW Plt Count Neut % (Auto) Lymph % (Auto) [place] % (Auto) Eos % (Auto) Baso % (Auto) Neut # (Auto) Lymph # (Auto) [place] # (Auto) Eos # (Auto) Baso # (Auto) PT 11.1 INR 1.0 APTT 31 Sodium Potassium Chloride Carbon Dioxide BUN Creatinine Estimated GFR BUN/Creatinine Ratio Glucose Lactate Calcium Magnesium 2.0 Total Bilirubin AST ALT Alkaline Phosphatase Total Creatine Kinase CK-MB (CK-2) CK-MB (CK-2) Rel Index Troponin I Total Protein Albumin Globulin Albumin/Globulin Ratio TSH 0.610 Prolactin Urine Color Urine Appearance Urine pH Ur Specific [place] Urine Protein Urine Glucose (UA) Urine Ketones Urine Occult Blood Urine Nitrate Urine Bilirubin Urine Urobilinogen Ur Leukocyte Esterase Urine RBC Urine WBC Ur Squamous Epith Cells Urine Bacteria Hyaline Casts Ur Culture Indicated? Salicylates U Opiates 300ng/mL cut Ur Oxycodone Screen Urine Methadone Screen Acetaminophen Ur Barbiturates Screen U Tricyclic Antidepress Ur Phencyclidine Scrn Ur Amphetamines Screen U Methamphetamines Scrn Ur MDMA Scrn (Ecstasy) U Benzodiazepines Scrn Urine Cocaine Screen U Marijuana (THC) Screen Ethyl Alcohol SARS-CoV-2 (PCR) 05/10/21 05/10/21 05/10/21 10:13 10:13 11:07 WBC RBC Hgb Hct MCV MCH MCHC RDW Plt Count Neut % (Auto) Lymph % (Auto) [place] % (Auto) Eos % (Auto) Baso % (Auto) Neut # (Auto) Lymph # (Auto) [place] # (Auto) Eos # (Auto) Baso # (Auto) PT INR APTT Sodium Potassium Chloride Carbon Dioxide BUN Creatinine Estimated GFR BUN/Creatinine Ratio Glucose Lactate Calcium Magnesium Total Bilirubin AST ALT Alkaline Phosphatase Total Creatine Kinase CK-MB (CK-2) CK-MB (CK-2) Rel Index Troponin I Total Protein Albumin Globulin Albumin/Globulin Ratio TSH Prolactin Urine Color Yellow Urine Appearance Sl cloudy Urine pH 6.0 Ur Specific [place] 1.015 Urine Protein Negative Urine Glucose (UA) Negative Urine Ketones Negative Urine Occult Blood Negative Urine Nitrate Positive H Urine Bilirubin Negative Urine Urobilinogen 0.2 Ur Leukocyte Esterase Negative Urine RBC 0-1/hpf Urine WBC 5-10/hpf H Ur Squamous Epith Cells 1-5 /hpf Urine Bacteria Many (>30) H Hyaline Casts 1-5/lpf Ur Culture Indicated? Specimen cultured Salicylates U Opiates 300ng/mL cut Negative Ur Oxycodone Screen Negative Urine Methadone Screen Negative Acetaminophen Ur Barbiturates Screen Negative U Tricyclic Antidepress Negative Ur Phencyclidine Scrn Negative Ur Amphetamines Screen Negative U Methamphetamines Scrn Negative Ur MDMA Scrn (Ecstasy) Negative U Benzodiazepines Scrn Negative Urine Cocaine Screen Negative U Marijuana (THC) Screen Negative Ethyl Alcohol SARS-CoV-2 (PCR) Negative 05/10/21 14:09 WBC RBC Hgb Hct MCV MCH MCHC RDW Plt Count Neut % (Auto) Lymph % (Auto) [place] % (Auto) Eos % (Auto) Baso % (Auto) Neut # (Auto) Lymph # (Auto) [place] # (Auto) Eos # (Auto) Baso # (Auto) PT INR APTT Sodium Potassium Chloride Carbon Dioxide BUN Creatinine Estimated GFR BUN/Creatinine Ratio Glucose Lactate Calcium Magnesium Total Bilirubin AST ALT Alkaline Phosphatase Total Creatine Kinase CK-MB (CK-2) CK-MB (CK-2) Rel Index Troponin I Total Protein Albumin Globulin Albumin/Globulin Ratio TSH Prolactin Urine Color Urine Appearance Urine pH Ur Specific [place] Urine Protein Urine Glucose (UA) Urine Ketones Urine Occult Blood Urine Nitrate Urine Bilirubin Urine Urobilinogen Ur Leukocyte Esterase Urine RBC Urine WBC Ur Squamous Epith Cells Urine Bacteria Hyaline Casts Ur Culture Indicated? Salicylates U Opiates 300ng/mL cut Ur Oxycodone Screen Urine Methadone Screen Acetaminophen 53 H* Ur Barbiturates Screen U Tricyclic Antidepress Ur Phencyclidine Scrn Ur Amphetamines Screen U Methamphetamines Scrn Ur MDMA Scrn (Ecstasy) U Benzodiazepines Scrn Urine Cocaine Screen U Marijuana (THC) Screen Ethyl Alcohol SARS-CoV-2 (PCR) Assessment & Plan Assessment & Plan narrative: 81-year-old female with a history of hypertension, dementia, anxiety, chronic pain admitted to the hospital for acute metabolic encephalopathy. * Patient is on multiple substances which could contribute to her acute encephalopathy * However given her elevated Tylenol level on her urine tox screen Tylenol over dose is most likely * Suspect inadvertent Tylenol overdose, patient may have been taking Tylenol p.m.. * She is currently on NAC, to correct her Tylenol overdose, will recheck her sediment if an level, LFTs and protime * Will continue to reach out to significant others in caregivers regarding her baseline mental status Hypertension * Will hold the chlorthalidone * Continue losartan * Continue furosemide Dementia * Will continue her memantine Chronic pain * Continue Tylenol * Continue duloxetine * Continue Lyrica Hypokalemia * Will replace Patient is unable to provide any further history regarding code status, or surrogate decision makers. At this Point will make her full code. I have utilized all available methods to review update confirm the patient's current medications. Time Spent With Patient Critical Care time: I spent a total of [] minutes of critical care time on this patient's care today; this time is exclusive of procedural time.
[2021-05-10] MEDS: OXYCODONE IR 5 MG TABLET PO (17:18)
[2021-05-10 17:51] LABS: PTT Partial Thromboplastin Tim 32 SECONDS (26.4-36.2)
[2021-05-10 18:34] LABS: INR 1.1 (0.9-1.3)
[2021-05-10] MEDS: MEMANTINE HCL 5 MG TABLET 10 MG PO (20:55)
[2021-05-10] MEDS: PREGABALIN 50 MG CAPSULE 100 MG PO (20:56)
[2021-05-10 21:12] LABS: Acetaminophen < 10 ug/mL (10-30); Alanine Aminotransferase 19 IU/L (<35); Albumin 4.1 g/dL (3.5-5.0); Albumin Globulin Ratio 1.4 (1.0-2.8); Alkaline Phosphatase 53 U/L (38-126); Aspartate Aminotransferase 30 IU/L (14-36); Bilirubin Total 0.4 mg/dL (0.2-1.3); Bilirubin Unconjugated 0.3 mg/dL (0.0-1.1); Globulin 2.9 g/dL (1.7-4.1); HEMOLYSIS < 15 (0-50)
[2021-05-11] VITALS (11 sets, daily range): BP systolic 126–216; BP diastolic 83–97; PULSE 65–83; RESP 16–21; TEMP 36.3–36.9; O2SAT 94–97
[2021-05-11] MEDS: diphenhydrAMINE 25 MG TABLET PO (01:41)
--- NOTE | 2021-05-11 01:57 | PC.NURSE ---
Castaneda catheter removed on day shift. Patient voiding small amounts every 45-60 minutes in BSC. Bladder scan showed 10mL post void residual.
--- NOTE | 2021-05-11 02:32 | PC.NURSE ---
Alerted by aide to BP of 216/97, taken multiple times on both arms. Paused maintenance fluids. All other vitals unremarkable and patient complains of no other symptoms. JOY Silva contacted and made aware, ordered to continue monitoring patient.
[2021-05-11] MEDS: TRAMADOL 50 MG TABLET PO (02:49)
[2021-05-11] MEDS: OXYCODONE IR 5 MG TABLET PO ×2 (04:34→11:52)
[2021-05-11 04:57] LABS: INR 1.1 (0.9-1.3); Prothrombin Time 12.7 SECONDS (10.1-12.7)
[2021-05-11 05:01] LABS: Alanine Aminotransferase 20 IU/L (<35); Albumin 4.3 g/dL (3.5-5.0); Albumin Globulin Ratio 1.4 (1.0-2.8); Alkaline Phosphatase 49 U/L (38-126); Aspartate Aminotransferase 33 IU/L (14-36); BUN Creatinine Ratio 16.7 (6-22); Bilirubin Total 0.5 mg/dL (0.2-1.3); Blood Urea Nitrogen 10 mg/dL (7-17); Calcium 9.1 mg/dL (8.4-10.2); Carbon Dioxide 28 mmol/L (22-32); Chloride 105 mmol/L (98-107); Estimated Glomerular Filt Rate > 60.0 mL/min (>60); Globulin 3.1 g/dL (1.7-4.1); Glucose 101 mg/dL (80-110); HEMOLYSIS < 15 (0-50); Sodium 137 mmol/L (137-145); Total Protein 7.4 g/dL (6.3-8.2)
[2021-05-11 05:17] LABS: Potassium 2.7 mmol/L (3.4-5.1)
[2021-05-11] MEDS: POTASSIUM CHLORIDE 20 MEQ TAB 40 MEQ PO (06:22)
--- NOTE | 2021-05-11 09:30 | PT.IIE ---
Medical History (Last Reviewed 05/10/21 @ 17:14 by Kemi Duran MD) Anxiety Chronic pain syndrome Chronic rectal pain Cough Degenerative arthritis Dementia Depression History of femur fracture Hypertension Irritable bowel syndrome (IBS) Migraine Orthopnea Peptic ulcer hemorrhage Spinal stenosis Physical Therapy Inpatient Evaluation/Re-Eval M1 PT/OT-IP Prior Functional Status Start: 05/10/21 15:34 Freq: NEEDED Status: Active Protocol: Document 05/11/21 09:30 AB (Rec: 05/11/21 11:52 AB [id number]) Medical Review Prior Functional Status Medical History Reviewed Yes Communication able to make needs known Mobility and Gait pt stated that she is modified independent with all mobilities and ambulation without AD. stated that she does not ambulate much outdoors. Pt's significant other assists pt as needed Social History Household Members significant other Living Arrangements House Number of Floors (Floors) One Floor Number of Stairs To Enter/Railing? 4 steps R rail from back 3 steps B rails from the front Home Environment Standard Height Toilet,Walk in Shower,Tub/Shower Additional Social History Comment adjustable bed without rails pt prefers to take a bath than a shower M2 PT-IP Current Condition Start: 05/10/21 15:34 Freq: NEEDED Status: Active Protocol: Document 05/11/21 09:30 AB (Rec: 05/11/21 11:52 AB [id number]) Physical Therapy Current Condition Current Condition Evaluation Date 05/11/21 Treatment Diagnosis UTI; AMS; difficulty in walking Onset Date 05/10/21 M3 PT-IP Subjective Start: 05/10/21 15:34 Freq: NEEDED Status: Active Protocol: Document 05/11/21 09:30 AB (Rec: 05/11/21 11:52 AB [id number]) Subjective Physical Therapy Visit Type Type Initial Evaluation Visit Start Time 09:30 Visit Stop Time 10:00 Total Visit Minutes 30 Number of MANAGER CARDIAC CATH Visits 0 Physical Therapy Visit Comments Patient Comments stated that she is tired Therapy Pain Assessment Pain When Pain Assessed At Rest Pain Present Pain Present Pain Reported Location Lower Rectum Intensity 8 Scale Used Numeric (0 - 10) Pain Management Techniques Distraction,Modification of Treatment M4 PT-IP Mobility and Gait Start: 05/10/21 15:34 Freq: NEEDED Status: Active Protocol: Document 05/11/21 09:30 AB (Rec: 05/11/21 11:52 AB [id number]) PT-Bed Mobility Assessment Supine to Sit Supine to Sit Standby Assistance Sit to Supine Sit to Supine Standby Assistance PT-Transfer Assessment Sit to and From Stand Sit to and from Stand Contact Guard Assistance,1 Person Assistance,Use of Upper Extremities Equipment Transfer Assistive Device None,Gait Belt Orthotic/Prosthetic Devices or Brace: No Comments Mobility Comments completed supine to sit SBA. completed sit to stand CGA and ambulated in room without AD min A ~ 15 ft. pt presents with unsteady antalgic gait. pt has chronic L hip pain. pt educated on safety and use of FWW for ambulation and agreed. ambulated in room with FWW SBA ~ 10 ft. pt stated that she is tired and wants to go back to bed. sit to supine SBA . positioned pt in bed. call light and table placed within reach. informed pt to obtain a FWW for home use and stated that she will let Dalton(sig. other) known. Gait Assessment Gait Gait Assistance Required: Standby Assistance,Minimum Assistance Distance (Feet) 15 Assistive Devices Assistive Device None,Gait Belt,Front Wheeled Walker Orthotic/Prosthetic Devices or Brace: No Gait Deviations General Gait Pattern Antalgic,Decreased Stride Length,Decreased Feet Clearance,Flexed Trunk Factors Limiting Gait Function Factors Limiting Gait Function Decreased Activity Tolerance, Decreased Strength,Limited Range of Motion,Pain,Poor Balance,Poor Safety Awareness PT-Balance Assessment Sitting Balance and Reactions Static Sitting Balance Ability Good Dynamic Sitting Balance Ability Good Standing Balance and Reactions Static Standing Balance Ability Fair Dynamic Standing Balance Ability Fair Device Used FWW M5 PT-IP Objective Assessments Start: 05/10/21 15:34 Freq: NEEDED Status: Active Protocol: Document 05/11/21 09:30 AB (Rec: 05/11/21 11:52 AB [id number]) Orientation Orientation/Cognition Level of Alertness Alert Orientation Name,Year,Place Safety Awareness Decreased Safety Awareness Gross Range of Motion Lower Extremity ROM Assessment Within Functional Limits Strength Lower Extremity Strength Assessment Right Impaired Hip 3+/5 Knee 4-/5 Sensation Assessment Sensation Gross Sensation WNL Muscle Tone Muscle Tone WNL Yes M6 PT-IP Treatment Start: 05/10/21 15:34 Freq: NEEDED Status: Active Protocol: Document 05/11/21 09:30 AB (Rec: 05/11/21 11:52 AB [id number]) Physical Therapy Treatment Education Education Provided Safety M7 PT-IP Assessment and Plan Start: 05/10/21 15:34 Freq: NEEDED Status: Active Protocol: Document 05/11/21 09:30 AB (Rec: 05/11/21 11:52 [email or web address]) PT Summary Assessment and Plan Potential Rehabilitation Potential Good Status of Condition at Evaluation Stable Summary Impairments Pain,ROM,Strength,Balance, Coordination,Sensation,Tone, Cognition,Bed Mobility, Transfers,Gait,Activity Tolerance Assessment Summary pt requiring SBA with mobility using FWW. min A without AD and has unsteady antalgic gait and recommending FWW use at this time. pt plans to go home with her significant other to assist her at home. Goals Bed Mobility Goal Independent Transfer Goal Independent,Front Wheeled Walker Gait Goal Independent,Front Wheel Walker Gait Distance 200 Other Goals up/down 4 steps R rail SBA Days to Meet Goals 5 Frequency of Treatment Frequency Of Treatment Once a Day Treatment Plan Physical Therapy Treatment Plan Bed Mobility Training,Transfer Training,Gait Training, Therapeutic Exercise,Balance Retraining,Discharge Planning, Hot or Cold Pack,Neuromuscular Re-ed,Coordination Retraining Precautions Other Precautions falls Recommendations To Nursing Amount of Assist Needed 1 Person Assist Discharge Recommendations PT Discharge Recommendations Home with Assistance,Home Health Equipment Needed for Home Before FWW Discharge Transportation Needs at Discharge Private Vehicle
[2021-05-11 09:38] LABS: Magnesium 2.1 mg/dL (1.6-2.3)
[2021-05-11] MEDS: DULOXETINE 30 MG CAPSULE PO (09:58)
[2021-05-11] MEDS: LOSARTAN 25 MG TABLET PO (09:59)
[2021-05-11] MEDS: MEMANTINE HCL 5 MG TABLET 10 MG PO (09:59)
[2021-05-11] MEDS: PREGABALIN 50 MG CAPSULE 100 MG PO (09:59)
[2021-05-11] MEDS: FUROSEMIDE 40 MG TABLET PO (10:00)
[2021-05-11] MEDS: ENOXAPARIN 40 MG/0.4 ML SYRINGE SUBCUT (10:00)
[2021-05-11] MEDS: POTASSIUM CHLORIDE 40 MEQ in SODIUM CHLORIDE 0.9% 1,000 ML 150 MEQ IV (10:04)
--- NOTE | 2021-05-11 11:05 | OT.IPNOTE ---
Checked with nursing for OT eval with pt. Nurse states just finished with PT and now just wanting to rest as did not sleep last night. To check on the pt later.
--- NOTE | 2021-05-11 11:33 | PM.DS.1 ---
History of Present Illness History of Present Illness Date Patient Seen: 05/11/21 Time Patient Seen: 11:33 Chief complaint: AMS Narrative: The patient is a 81-year-old female with a history of anxiety, chronic pain, chronic rectal pain, cough, dementia, depression, hypertension, who presents to the hospital with altered mental status. Patient went to see her primary care physician today. They noted she was quite confused and she was sent to the emergency room by EMS. She is confused and is unable to provide any history. Patient was found to have urinary retention in the emergency department and Castaneda catheter was placed. Head CT was negative. Patient denied any pain or shortness of breath. I urine tox screen was positive for Tylenol level of greater than 147. Patient was placed on in acetylcysteine, and is admitted to the hospital for further treatment and evaluation. Discharge Providers Provider Date of admission: 05/10/21 11:44 Discharge Date: 05/11/21 Primary care physician: Carlos Dunn MD Consults: 05/10/21 14:38 Consult to Dietitian, Adult Routine Comment: Reason For Exam: admission nutrition score Consult to Steward/Stewardess Economy Class Routine Comment: 05/10/21 14:57 Consult to Occupational Therapy Evaluate & Treat Comment: Physician Instructions: Evaluate and treat Consult to Physical Therapy Evaluate & Treat Comment: Physician Instructions: Evaluate and Treat Discharge provider: Kemi Duran MD Summary Hospital Course Discharge Diagnosis: 1. Acute metabolic encephalopathy 2. Acetaminophen overdose 3. Urinary tract infection, secondary to Gram-negative ashlyn 4. Hypertension 5. Hypokalemia 6. History of migraine 7. Depression 8. Dementia Hospital Course: Patient was brought into the hospital for evaluation of confusion. She was found to have an elevated L acetaminophen level. This was discussed with poison control the patient was placed on NAC. Her LFT's remained normal. Patient's tylenol level was less than 10 and the NAC was discontinued. Today the patient is more awake and alert, she does not admit to taking excess Tylenol although she reports she does have a half a bottle at home. She knows she is in the hospital, she knows the year, she knows the president. Patient has no specific complaints. Her urine culture is growing Gram-negative rods. She will be treated for urinary tract infection. On admission she was found to have some evidence of urinary retention this likely was a contributor to her urinary tract infection. Overall the patient has improved and is deemed appropriate for discharge home. Status at Discharge Cognitive/behavioral status at discharge: oriented Functional status at discharge: independent ambulation Overall status at discharge: patient is progressing back to baseline Exam Vital Signs (past 8 hours): - 05/11/21 06:00 05/11/21 07:30 05/11/21 08:15 Temperature 97.7 F Pulse Rate 74 Respiratory Rate 18 Blood Pressure 168/94 H Pulse Oximetry 96 95 97 05/11/21 09:59 Temperature Pulse Rate 83 Respiratory Rate Blood Pressure 126/83 Pulse Oximetry Oxygen Delivery Method Room Air Oxygen Flow Rate 0 Narrative Exam Narrative: Pleasant female lying in bed in no obvious distress Resp Other: Lungs clear to auscultation Cardio Other: Cardiac exam: Regular rate rhythm normal S1-S2 GI Other: Abdomen soft nontender nondistended Extrem Other: Extremity no edema Psych Other: Patient is awake alert oriented, she is aware of being in the hospital. Appears to be improved significantly and back to her baseline Objective Labs Result Diagrams: 05/10/21 09:50 05/11/21 04:30 Labs: Laboratory Results - last 24 hr 05/10/21 05/10/21 05/10/21 11:07 14:09 14:47 PT INR APTT 32 Sodium Potassium Chloride Carbon Dioxide BUN Creatinine Estimated GFR BUN/Creatinine Ratio Glucose Calcium Magnesium Total Bilirubin Conjugated Bilirubin Unconjugated Bilirubin AST ALT Alkaline Phosphatase Total Protein Albumin Globulin Albumin/Globulin Ratio Acetaminophen 53 H* SARS-CoV-2 (PCR) Negative 05/10/21 05/10/21 05/11/21 14:47 20:54 04:30 PT 12.0 INR 1.1 APTT Sodium 137 Potassium 2.7 L* Chloride 105 Carbon Dioxide 28 BUN 10 Creatinine 0.60 Estimated GFR > 60.0 BUN/Creatinine Ratio 16.7 Glucose 101 Calcium 9.1 Magnesium Total Bilirubin 0.4 0.5 Conjugated Bilirubin 0.0 Unconjugated Bilirubin 0.3 AST 30 33 ALT 19 20 Alkaline Phosphatase 53 49 Total Protein 7.0 7.4 Albumin 4.1 4.3 Globulin 2.9 3.1 Albumin/Globulin Ratio 1.4 1.4 Acetaminophen < 10 L SARS-CoV-2 (PCR) 05/11/21 05/11/21 04:30 04:30 PT 12.7 INR 1.1 APTT Sodium Potassium Chloride Carbon Dioxide BUN Creatinine Estimated GFR BUN/Creatinine Ratio Glucose Calcium Magnesium 2.1 Total Bilirubin Conjugated Bilirubin Unconjugated Bilirubin AST ALT Alkaline Phosphatase Total Protein Albumin Globulin Albumin/Globulin Ratio Acetaminophen SARS-CoV-2 (PCR) PFSH Medical History Anxiety Chronic pain syndrome Chronic rectal pain Cough Degenerative arthritis Dementia Depression History of femur fracture Hypertension Irritable bowel syndrome (IBS) Migraine Orthopnea Peptic ulcer hemorrhage Spinal stenosis Surgical History H/O: hysterectomy History of appendectomy Social History household members: spouse caregiver/support person: Yes other: She drinks about 2 alcoholic beverages a week. No cigarette smoking Smoking Status: Never smoker Discharge Assessment & Plan Assessment and Plan Assessment: 1. Acute metabolic encephalopathy 2. Acetaminophen overdose 3. Urinary tract infection, secondary to Gram-negative ashlyn 4. Hypertension 5. Hypokalemia 6. History of migraine 7. Depression 8. Dementia Plan of Treatment: Discharge home Discontinue chlorthalidone At potassium to home medication Discharge Plan Discharge Plan Patient Disposition: Home Discharge orders & Medications Prescriptions: New potassium chloride 20 mEq tablet extended release 20 meq PO DAILY Qty: 30 0RF levofloxacin 250 mg tablet 250 mg PO DAILY Qty: 7 0RF Continued Aimovig Autoinjector 140 mg/mL auto-injector 140 mg SUBCUT QMONTH Qty: 1 12RF sumatriptan succinate 100 mg tablet See Rx Instructions PO .COMPLEX Qty: 10 0RF Dose Instruction: take 1 tab at onset of headache; if no relief may repeat 1 tab in 2hr; max = 2 tabs/24 hrs PO Rx Instructions: take 1 tab at onset of headache; if no relief may repeat 1 tab in 2hr; max = 2 tabs/24 hrs PO trazodone 150 mg Tablet 150 mg PO BEDTIME Qty: 15 0RF duloxetine 30 mg capsule,delayed release(DR/EC) 30 mg PO DAILY 0RF pregabalin 100 mg capsule 100 mg PO BID 0RF furosemide 40 mg tablet 40 mg PO DAILY 0RF losartan 25 mg tablet 25 mg PO DAILY 0RF docusate sodium [Colace] 100 mg capsule 100 mg PO BEDTIME PRN (Reason: Constipation) 0RF acetaminophen 500 mg Tablet 500 mg PO Q6H PRN (Reason: Pain, Mild) 0RF estradiol 0.01 % (0.1 mg/gram) Cream 1 g VAGINAL DIRECTED 0RF memantine 10 mg Tablet 10 mg PO BID 0RF Restasis 0.05 % Dropperette 1 drp ophthalmic (eye) BID 0RF Discontinued chlorthalidone 50 mg tablet 50 mg PO DAILY 0RF Follow up/Referrals: Carlos Dunn MD [Primary Care Provider] - Discharge Health Status Multidrug resistant organism: No MDRO Diet/Activity/Treatments Diet: Low-sodium Discharge Data Primary Care Provider: Carlos Dunn
[2021-05-11 12:40] LABS: HEMOLYSIS < 15 (0-50); Potassium 3.5 mmol/L (3.4-5.1)
--- NOTE | 2021-05-11 14:23 | CM.DPC ---
DCP/Assessment: Reviewed chart. Patient is a 81yr old female admitted to [facility] with altered mental status. PCP listed is Dr. Dunn (patient in process of being assigned new PCP). Primary payor is 1)Medicare 2)[employer]. MANAGER HEMATOLOGY met with patient this AM explained CM/SW role. Patient alert and oriented at time of visit. Patient reports that she resides with significant other/Dalton in [place]. Patient believes that she is at [facility] because she accidentally took too many Tylenol. Patient denies suicide attempt however, does reports that she has h/o anxiety and depression. Patient currently denies seeing anyone as outpatient for MH. Patient aware and agreeable to obtain resources. MANAGER HEMATOLOGY provided her with community resources for outpatient MH follow up and senior resources. No additional needs identified at this time. Anticipate home later today. P: Home today, resources provided. RACHEL Rodarte Discharge Planning/Care Management CM Discharge Assessment Start: 05/11/21 14:13 Freq: Status: Active Protocol: Document 05/11/21 14:13 KJS (Rec: 05/11/21 14:23 KJS [id number]) Discharge Planning Assessment Assigned Railroad Signal And Switch Operator RACHEL Rodarte Contact Information Dalton Borja (Life Partner) ph# [phone] Advance Directives? Yes Advance Directives on File Yes History Provided By Patient,Medical Record Prior Living Arrangements House Household Members significant other Type of transporation used prior to Drives own vehicle admit Independent with ADL's Yes Is patient alert and oriented? Yes Caregiver for Another No Comment Patient is I in ADL's. Barriers to Discharge No Discharge Plan Home Transportation Arrangement Significant other will provide transport. Referrals Initiated Other Additional Comment resources for outpatient follow up. Patient admits to h /o depression and anxiety. Patient denies any current suicidal ideation. In addition , patient denies tylenol overdose to be planned. Review Status In Process Next Review Type Continued Stay Review
--- NOTE | 2021-05-11 14:41 | OT.IP.EVAL ---
Past Medical History (Last Reviewed 05/10/21 @ 17:14 by Kemi Duran MD) Anxiety Chronic pain syndrome Chronic rectal pain Cough Degenerative arthritis Dementia Depression H/O: hysterectomy History of appendectomy History of femur fracture Hypertension Irritable bowel syndrome (IBS) Migraine Orthopnea Peptic ulcer hemorrhage Spinal stenosis Surgical History (Last Reviewed 05/10/21 @ 17:14 by Kemi Duran MD) H/O: hysterectomy History of appendectomy Occupational Therapy Inpatient Evaluation/Re-Eval M1 PT/OT-IP Prior Functional Status Start: 05/10/21 15:34 Freq: NEEDED Status: Active Protocol: Document 05/11/21 09:30 AB (Rec: 05/11/21 11:52 AB [id number]) Medical Review Prior Functional Status Medical History Reviewed Yes Communication able to make needs known Mobility and Gait pt stated that she is modified independent with all mobilities and ambulation without AD. stated that she does not ambulate much outdoors. Pt's significant other assists pt as needed Social History Household Members significant other Living Arrangements House Number of Floors (Floors) One Floor Number of Stairs To Enter/Railing? 4 steps R rail from back 3 steps B rails from the front Home Environment Standard Height Toilet,Walk in Shower,Tub/Shower Additional Social History Comment adjustable bed without rails pt prefers to take a bath than a shower M1 PT/OT-IP Prior Functional Status Start: 05/11/21 14:22 Freq: NEEDED Status: Active Protocol: Document 05/11/21 14:00 [facility] (Rec: 05/11/21 14:41 [facility] [id number]) Medical Review Prior Functional Status Medical History Reviewed Yes Communication able to make needs known Mobility and Gait pt stated that she is modified independent with all mobilities and ambulation without AD. stated that she does not ambulate much outdoors. Pt's significant other assists pt as needed. Dalton, significant other states that they have a fww at home that she can use but refuses to use it. He states pt mainly furniture cruises. Activities of Daily Living and IADL's Pt able to do all ADL's at home and will not allow Dalton to assist for her showers. Social History Household Members significant other Living Arrangements House Number of Stairs To Enter/Railing? 4 steps R rail from back 3 steps B rails from the front Home Environment Standard Height Toilet,Walk in Shower,Tub/Shower Home Equipment Front Wheel Walker,Hand Held Shower M2 OT-IP Current Condition Start: 05/11/21 14:22 Freq: Status: Active Protocol: Document 05/11/21 14:00 [facility] (Rec: 05/11/21 14:41 [facility] [id number]) Occupational Therapy Current Condition Current Condition Evaluation Date 05/11/21 Treatment Diagnosis UTI, acute metabolic encephalopathy Diagnosis Onset Date 05/10/21 M3 OT- IP Subjective and Pain Start: 05/11/21 14:22 Freq: Status: Active Protocol: Document 05/11/21 14:00 [facility] (Rec: 05/11/21 14:41 [facility] [id number]) OT- Subjective Occupational Therapy Visit Type Type Initial Evaluation Visit Start Time 14:00 Visit Stop Time 14:17 Total Visit Minutes 17 Occupational Therapy Visit Comments Patient Comments Pt agreeable to get dressed and Dalton, her significant was present for caregiver training. Patient/Caregiver Goals TO go home. OT Pain Assessment Pain When Pain Assessed At Rest Pain Present Pain Present Denied Pain M4 OT- IP ADL's Start: 05/11/21 14:22 Freq: Status: Active Protocol: Document 05/11/21 14:00 [facility] (Rec: 05/11/21 14:41 [facility] [id number]) OT ADL-Oral Care Comments Oral Care Comments Not performed. OT ADL-Dressing General Eval Upper Body Dressing Ability Independent Lower Body Dressing Ability Independent OT ADL-Bathing Comments OT Bathing Comments Pt would benefit from assist for safety and use of shower chair. Dalton states just but up a hand held shower spray for the pt. M5 OT- IP IADL's Start: 05/11/21 14:22 Freq: Status: Active Protocol: Document 05/11/21 14:00 [facility] (Rec: 05/11/21 14:41 [facility] [id number]) OT-Instrumental Activities of Daily Living Home Safety Awareness Awareness of Need for Assistance at Home Decreased Awareness Medication Management Medication Management Caregiver Administers Money Management Money Management Caregiver Provides Assistance Meal Preparation Meal Preparation Caregiver Provides Assist Journeyman Sheet Metal Worker Journeyman Sheet Metal Worker Caregiver Provides Assist M6 OT- IP Functional Cognition Start: 05/11/21 14:22 Freq: Status: Active Protocol: Document 05/11/21 14:00 [facility] (Rec: 05/11/21 14:41 [facility] [id number]) Cognitive Factors Limiting Selfcare Function Cognitive Ability Level of Alertness Alert Patient Orientation Name,Place,Situation Attention Span Ability Capable of Focused Attention, Capable of Sustained Attention Ability to Follow Commands Able to Follow One Step Commands with Increased Time, Able to Follow One Step Commands with Repetition Safety Awareness Underestimates Need for Assistance Executive Function Ability Unable to Switch Focus,Unable to Filter Distractions Cognitive Comments Cognitive Assessment Comments Pt is highly distracted and needing cues for safety. Pt trying to stand up from the wc before the brakes when locked , pt trying to stand up when her foot was not on the ground and on the tray table. Pt has poor safety awareness. Spoke to Dalotn and educated to be sure to have 03/10 for pt's safety as she is a high fall risk. Dalton initially not wanting to be present to see how the pt did on the steps. He just states, She is moving better today, even better than me. Pt would highly benefit from home health to look at safety in the home environment,ADl's and mobility needs. M7 OT- IP Mobility and Balance Start: 05/11/21 14:22 Freq: Status: Active Protocol: Document 05/11/21 14:00 [facility] (Rec: 05/11/21 14:41 [facility] [id number]) OT-Transfer Assessment Transfers Transfer Ability Standby Assistance Technique Transfer Destination Bed,Wheelchair Transfer Technique Stand Step Pivot Devices Transfer Assistive Devices None,Gait Belt Comments Mobility Comments Pt cga to close SBA without FWW. Pt able to do 3 steps with the grab bar with SBA and increased time. OT- Balance Assessment Sitting Balance and Reactions Static Sitting Balance Ability Good Dynamic Sitting Balance Ability Good Standing Balance and Reactions Static Standing Balance Ability Fair Dynamic Standing Balance Ability Fair M9 OT- IP Assessment and Plan Start: 05/11/21 14:22 Freq: Status: Active Protocol: Document 05/11/21 14:00 [facility] (Rec: 05/11/21 14:41 [facility] [id number]) OT Summary Assessment and Plan Potential Rehabilitation Potential Good Analytic Complexity at Evaluation Moderate Summary OT Impairments Balance,Functional Cognition, Functional Mobility,Dressing, Toileting,Bathing,Activity Tolerance Progress Towards Goals Progressing Toward Goals Assessment Summary Pt MOD complexity and here due to UTI/altered mental status and would benefit form home health in addition to her significant other providing assist as needed 24/7. Pt is a high fall risk as highly distracted and has poor safety awareness. Pt during OT eval trying to stand up from the wc before it was locks and trying to stand up when her feet when not safely on the floor and instead on the foot on the tray table. Goals Dressing Goal Independent Toileting Goal Independent Bathing Goal Standby Assistance Toilet Transfer Goal Independent Shower Transfer Goal Standby Assistance Patient/Caregiver Education Goal Caregiver Independent Assisting Patient Days to Meet Goals 3 Frequency of Treatment Frequency Of Treatment Once a Day Treatment Plan OT Treatment Plan ADL Training,Functional Cognition Training,Functional Mobility,Patient/Family Education,Discharge Planning Other Treatment Recommendations and Next shower if still here Treatment Focus Discharge Recommendations OT Discharge Recommendations Home with 24/7 Assist Available,Home Health Transportation Needs at Discharge Private Vehicle
--- NOTE | 2021-05-11 14:48 | PC.NURSE ---
Day Shift - Pt d/c to personal vehicle w/ significant other via wheelchair by nurse. Pt has all belongings. Pt and significant other verbalize understanding of home meds, proper use of tylenol, and use of antibiotic. They both also verbalized understanding of how to avoid falls.
== END 2021-05-11 14:53 | disposition home or self-care (01) | DRG 917 ==
LOC: ED 10:20 → AC 11:45
PROVIDERS: Admitting Provider Internal Medicine; Emergency Provider Emergency Medicine; PCP Internal Medicine; Referring Provider Emergency Medicine; Visit Provider Internal Medicine
DX: T39.1X1A Poisoning by 4-Aminophenol derivatives, accidental (unintentional), initial encounter (principal); G92.8 Other toxic encephalopathy; N39.0 Urinary tract infection, site not specified; F03.90 Unspecified dementia, unspecified severity, without behavioral disturbance, psychotic disturbance, mood disturbance, and anxiety; F41.9 Anxiety disorder, unspecified; G89.4 Chronic pain syndrome; E87.6 Hypokalemia; R33.9 Retention of urine, unspecified; I10 Essential (primary) hypertension; K62.89 Other specified diseases of anus and rectum; F32.A Depression, unspecified; Z20.822 Contact with and (suspected) exposure to COVID-19
CPT/HCPCS: 36415; 51702; 51798; 70450; 71045; 74177; 80053; 80076; 80305; 80320; 80329; 81001; 81003; 82550; 82553; 82962; 83605; 83735; 84132; 84146; 84443; 84484; 85025; 85610; 85730; 87040; 87077; 87086; 87186; 87635; 93005; 94760; 96365; 96368; 97161; 97166; 99285; 99291; C9803; G0480; J0132; J0696; J1650; J3480

== ENCOUNTER 2021-05-20 16:49 | Emergency (ER) | payer MEDICARE, OTHER, SELFPAY ==
[2021-05-10 14:26] VITALS: BMI 19.5
[2021-05-20] VITALS (8 sets, daily range): BP systolic 146–184; BP diastolic 83–105; PULSE 69–99; RESP 18; TEMP 36.8; O2SAT 95–97; BMI 21.4
[2021-05-20 17:27] LABS: Bacteria Urine Occasional (0-1); Culture Indicated Urine Cult Not Indicated; RBC Urine 0-1/HPF (0-5/HPF); Squamous Epithelial Cell Urine 1-5 /HPF (0-5/HPF); WBC Urine 0-1/HPF (0-5/HPF)
--- NOTE | 2021-05-20 18:38 | ED_ITS ---
HPI - Female Genitourinary General Chief complaint: Urogenital-Female Stated complaint: states bladder infection is getting worse Time Seen by Provider: 05/20/21 18:04 Source: patient Mode of arrival: Ambulatory History of Present Illness HPI Narrative: 81F nonsmoker with recent hospitalization for metabolic encephalopathy, UTI and Tylenol overdose presents with a chief complaint of ongoing dysuria and frequency and she is concerned that she still has a urinary tract infection. She has taken her Levaquin as prescribed. She denies any fever chills. She denies any nausea, vomiting or diarrhea. She has no chest pain or shortness of breath. Related Data Home Medications Medication Instructions Recorded Confirmed acetaminophen 500 mg tablet 500 mg PO Q6H PRN 07/24/17 05/10/21 cyclosporine 0.05 % eye drops in a 1 drp OPHTHALMIC (EYE) BID 07/24/17 05/10/21 dropperette (Restasis) estradiol 1 g VAGINAL DIRECTED 07/24/17 05/10/21 memantine 10 mg tablet 10 mg PO BID 07/24/17 05/10/21 docusate sodium 100 mg capsule 100 mg PO BEDTIME PRN 05/10/21 05/10/21 (Colace) duloxetine 30 mg capsule,delayed 30 mg PO DAILY 05/10/21 05/10/21 release furosemide 40 mg tablet 40 mg PO DAILY 05/10/21 05/10/21 losartan 25 mg tablet 25 mg PO DAILY 05/10/21 05/10/21 pregabalin 100 mg capsule 100 mg PO BID 05/10/21 05/10/21 Previous Rx's Medication Instructions Recorded erenumab-aooe 140 mg/mL 140 mg SUBCUT QMONTH #1 ml 11/13/18 subcutaneous auto-injector (Aimovig Autoinjector) sumatriptan succinate 100 mg tablet See Rx Instructions PO .COMPLEX 12/17/18 #10 tab trazodone 150 mg tablet 150 mg PO BEDTIME #15 tab 01/19/20 levofloxacin 250 mg tablet 250 mg PO DAILY #7 tab 05/11/21 potassium chloride 20 mEq 20 meq PO DAILY #30 tab 05/11/21 tablet,extended release clotrimazole 2 % vaginal cream 1 appful VAGINAL BEDTIME 3 Days #3 05/20/21 (Clotrimazole 3 Day) g Allergies Allergy/AdvReac Type Severity Reaction Status Date / Time baclofen [BACLOFEN] Allergy Unknown Verified 01/14/20 13:49 cyclobenzaprine Allergy Unknown Verified 01/14/20 13:49 [From FLEXERIL] nortriptyline [NORTRIPTYLINE] Allergy Unknown Verified 01/14/20 13:49 Sulfa (Sulfonamide AdvReac Mild vomiting Verified 01/14/20 13:49 Antibiotics) [SULFA (SULFONAMIDE ANTIBIOTICS)] pantoprazole [From PROTONIX] AdvReac Unknown NAUSEA/DIAR Verified 01/14/20 13:49 SEAN Review of Systems Review of Systems Narrative: GENERAL: Denies chills, fatigue, malaise, fever, sweats. HEENT: Denies sinus pain, ear pain, sore throat, difficulty swallowing, dizziness. RESPIRATORY: Denies dyspnea, cough, wheezing, hemoptysis, sputum. CARDIOVASCULAR: Denies chest pain, palpitations, orthopnea, edema, GASTROINTESTINAL: Denies nausea, vomiting, abdominal pain, diarrhea, constipation, melena. : See HPI MUSCULOSKELETAL: denies weakness, joint pain, or bony pain SKIN: Denies rash, skin lesions, or other NEUROLOGIC: Denies weakness, headache, numbness, change in speech, confusion, seizures, incoordination. PSYCHIATRIC: No concerning psychosocial issues. 12 point review of systems is negative except for those stated above Patient History Medical History Anxiety Chronic pain syndrome Chronic rectal pain Cough Degenerative arthritis Dementia Depression History of femur fracture Hypertension Irritable bowel syndrome (IBS) Migraine Orthopnea Peptic ulcer hemorrhage Spinal stenosis Surgical History H/O: hysterectomy History of appendectomy alcohol intake frequency: a few times a month Substance Use Type: does not use Exam Narrative Exam Narrative: GENERAL: [81 year old patient appears stated age. Well-developed patient, in mild distress. HEAD: Atraumatic. Normocephalic. EYES: Pupils equal round and reactive. Extraocular motions intact. No scleral icterus. No injection or drainage. ENT: Nose without bleeding, purulent drainage. Throat without erythema, tonsillar hypertrophy or exudate. Airway patent. NECK: Trachea midline. Non tender CARDIOVASCULAR: Regular rate and rhythm without murmurs, gallops, or rubs. RESPIRATORY: Clear to auscultation. Breath sounds equal bilaterally. No wheezes, rales, or rhonchi. GASTROINTESTINAL: Abdomen soft, non-tender, nondistended. PELVIC: mild erythema of external genitalia, no discharge or bleeding. No pain. Done with patient permission and female nurse crusher wet ground mica at the bedside EXTREMITIES: No edema or joint tenderness. BACK: Nontender without deformity or crepitance. No flank tenderness. NEURO: AOx3. SKIN: No rash or erythema of visible areas Initial Vital Signs Initial Vital Signs: Vital Signs Temperature 98.3 F 05/20/21 17:04 Pulse Rate 94 H 05/20/21 17:04 Respiratory Rate 18 05/20/21 17:04 Blood Pressure 184/105 H 05/20/21 17:04 Pulse Oximetry 95 05/20/21 17:04 Course Orders Ordered: ED Orders 05/20/21 18:20 YOAN prep [YOAN Prep] Stat Wet Prep Tric BV Araceli Stat 05/20/21 19:47 Genital Culture Stat Vital Signs Vital signs: Vital Signs - 8 hr 05/20/21 19:38 05/20/21 19:39 Blood Pressure 156/96 H Pulse Oximetry 97 97 MDM - Female Genitourinary Lab Data Labs: Lab Results 05/20/21 Range/Units 17:05 Urine RBC 0-1/hpf (0-5/HPF) Urine WBC 0-1/hpf (0-5/HPF) Ur Squamous Epith Cells 1-5 /hpf (0-5/HPF) Urine Bacteria Occasional (0-1) D (None) Ur Culture Indicated? Cult not indicated Urine Dip Bedside Urine Glucose Negative Bedside Urine Bilirubin - Negative Bedside Urine Ketone - Negative Urine Specific [place] 1.025 Bedside Urine Occult Blood + Bedside Urine pH 5.5 Bedside Urine Protein - Negative Bedside Urine Urobilinogen - Negative Bedside Urine Nitrite - Negative MDM Narrative Medical decision making narrative: Patient has a very reassuring history and physical exam. She complains only of dysuria and is concerned that her urine infection has persisted. Her urine today is reassuring. She has been taking her antibiotics as directed. Exam demonstrates erythema of her external genitalia likely a consequence of yeast in the aftermath of antibiotics. Otherwise she is well, there are no systemic findings. Exam is reassuring. Return precautions discussed and questions answered to her apparent satisfaction Discharge Plan Departure Patient Disposition: Home Clinical Impression: Candidiasis of female genitalia Instructions: DI for Vaginal Yeast Infection Activity Restrictions/Additional Instructions: *You have been diagnosed with [dysuria and candidiasis of genitalia. As we discussed, your history and physical exam are reassuring and there is no evidence of ongoing urine infection. Your physical exam would suggest you likely have a mild yeast infection *What to do: *Please continue to take your regular medications as directed. [x] New medication prescriptions sent to your pharmacy: [ [facility]] [ ] New medication written as a paper prescription [ ] No new medications given *Please follow up with your primary care provider in 2-3 days, call for an appointment. Let them know you were seen in the Emergency Department and that we ask that you be seen in follow up. We will electronically transmit a record of today's note if your PCP is in our system *If you do not have a primary care provider please contact the [facility] Resource line at [phone]. They will ask some questions about your medical history and help get you set up with a doctor in the community. *Return to Emergency Department if you should have any new, worsening or concerning symptoms, such as [fever greater than 101 F, shaking chills, worsening pain, persistent vomiting or other bothersome symptoms] Prescriptions: New Clotrimazole 3 Day 2 % cream 1 appful vaginal BEDTIME 3 Days Qty: 3 0RF No Action Aimovig Autoinjector 140 mg/mL auto-injector 140 mg SUBCUT QMONTH Qty: 1 12RF sumatriptan succinate 100 mg tablet See Rx Instructions PO .COMPLEX Qty: 10 0RF Dose Instruction: take 1 tab at onset of headache; if no relief may repeat 1 tab in 2hr; max = 2 tabs/24 hrs PO Rx Instructions: take 1 tab at onset of headache; if no relief may repeat 1 tab in 2hr; max = 2 tabs/24 hrs PO trazodone 150 mg Tablet 150 mg PO BEDTIME Qty: 15 0RF duloxetine 30 mg capsule,delayed release(DR/EC) 30 mg PO DAILY 0RF pregabalin 100 mg capsule 100 mg PO BID 0RF furosemide 40 mg tablet 40 mg PO DAILY 0RF losartan 25 mg tablet 25 mg PO DAILY 0RF docusate sodium [Colace] 100 mg capsule 100 mg PO BEDTIME PRN (Reason: Constipation) 0RF potassium chloride 20 mEq tablet extended release 20 meq PO DAILY Qty: 30 0RF levofloxacin 250 mg tablet 250 mg PO DAILY Qty: 7 0RF acetaminophen 500 mg Tablet 500 mg PO Q6H PRN (Reason: Pain, Mild) 0RF estradiol 0.01 % (0.1 mg/gram) Cream 1 g VAGINAL DIRECTED 0RF memantine 10 mg Tablet 10 mg PO BID 0RF Restasis 0.05 % Dropperette 1 drp ophthalmic (eye) BID 0RF Referrals: Carlos Dunn MD [Primary Care Provider] -
== END 2021-05-20 19:44 | disposition home or self-care (01) ==
PROVIDERS: Emergency Medicine; Emergency Provider Emergency Medicine; PCP Internal Medicine
DX: B37.3 Candidiasis of vulva and vagina (principal)
CPT/HCPCS: 81003; 81015; 87070; 87205; 87210; 87220; 99282

== ENCOUNTER → 2021-05-26 11:29 | Outpatient (CLI) | payer MEDICARE, OTHER, SELFPAY ==
[2021-05-10 14:26] VITALS: BMI 19.5
== END ==
PROVIDERS: PCP Internal Medicine; Visit Provider Physician Assistant
DX: R35.0 Frequency of micturition (principal)
CPT/HCPCS: 87086

== ENCOUNTER → 2021-08-04 11:22 | Outpatient (CLI) | payer MEDICARE, OTHER, SELFPAY ==
[2021-05-10 14:26] VITALS: BMI 19.5
[2021-08-04 12:15] LABS: BUN Creatinine Ratio 28.2 (6-22); Blood Urea Nitrogen 22 mg/dL (7-17); Calcium 9.1 mg/dL (8.4-10.2); Carbon Dioxide 31 mmol/L (22-32); Chloride 107 mmol/L (98-107); Cholesterol 193 mg/dL (140-199); Estimated Glomerular Filt Rate > 60 mL/min (>60); Glucose 92 mg/dL (80-110); HDL Cholesterol 57 mg/dL (40-60); HEMOLYSIS < 15 (0-50); LDL Cholesterol Calculated 110 mg/dL (<100); Magnesium 2.1 mg/dL (1.6-2.3); Potassium 4.2 mmol/L (3.4-5.1); Sodium 144 mmol/L (137-145); Triglycerides 132 mg/dL (35-150)
[2021-08-04 13:00] LABS: Vitamin B12 389 pg/mL (239-931)
== END ==
PROVIDERS: PCP Internal Medicine; Referring Provider Internal Medicine; Visit Provider Internal Medicine
DX: I10 Essential (primary) hypertension (principal); E53.8 Deficiency of other specified B group vitamins; E78.2 Mixed hyperlipidemia
CPT/HCPCS: 36415; 80048; 80061; 82607; 83735

== ENCOUNTER → 2022-02-19 16:10 | Outpatient (CLI) | payer MEDICARE, OTHER, SELFPAY ==
[2021-05-10 14:26] VITALS: BMI 19.5
== END ==
PROVIDERS: PCP Internal Medicine; Visit Provider Nurse Practitioner Family
DX: N39.0 Urinary tract infection, site not specified (principal); R10.2 Pelvic and perineal pain
CPT/HCPCS: 87086; 87210

== ENCOUNTER → 2022-02-19 17:25 | Outpatient (CLI) | payer MEDICARE, OTHER, SELFPAY ==
[2021-05-10 14:26] VITALS: BMI 19.5
--- NOTE | 2022-02-19 17:29 | DI.RAD.S_ITS ---
PROCEDURE: XR ABDOMEN MIN 2V INDICATIONS: Rule out constipation TECHNIQUE: 2 views of the abdomen were acquired. COMPARISON: [facility], , XR ABDOMEN MIN 2V, 05/15/2020, 19:10. FINDINGS: Surgical changes and devices: None. Bowel: No pneumoperitoneum. The bowel gas pattern is normal. Soft tissues: No masses; visualized solid organ contours appear normal in size. No suspicious abdominal calcifications. Bones: No suspicious bony abnormalities. IMPRESSION: No acute process. Dictated by: Vale Hodges M.D. on 02/19/2022 at 16:57 Approved by: Vale Hodges M.D. on 02/19/2022 at 16:58
== END ==
PROVIDERS: PCP Internal Medicine; Referring Provider Nurse Practitioner Family; Visit Provider Nurse Practitioner Family
DX: K59.00 Constipation, unspecified (principal); N39.0 Urinary tract infection, site not specified; R10.2 Pelvic and perineal pain
CPT/HCPCS: 74019; 87077; 87086; 87186; 87210

== ENCOUNTER → 2022-06-29 11:36 | Outpatient (CLI) | payer MEDICARE, OTHER, SELFPAY ==
[2021-05-10 14:26] VITALS: BMI 19.5
[2022-06-29 12:24] LABS: Hematocrit 36.3 % (36-46); Hemoglobin 12.1 g/dL (12.0-16.0); Mean Corpuscular HGB Conc 33.2 % (30-36); Mean Corpuscular Hemoglobin 28.1 PG (26-34); Mean Corpuscular Volume 84.7 fL (80-100); Platelet Count 235 X10^3/uL (150-400); Red Blood Cell Count 4.29 X10^6/uL (4.0-5.2); Red Cell Distribution Width 16.2 % (11.6-14.8); White Blood Cell Count 5.5 X10^3/uL (4.5-11.0)
[2022-06-29 13:02] LABS: Alanine Aminotransferase 27 IU/L (<35); Albumin 4.2 g/dL (3.5-5.0); Albumin Globulin Ratio 1.2 (1.0-2.8); Alkaline Phosphatase 91 U/L (38-126); Aspartate Aminotransferase 32 IU/L (14-36); BUN Creatinine Ratio 36.2 (6-22); Bilirubin Total 0.4 mg/dL (0.2-1.3); Blood Urea Nitrogen 25 mg/dL (7-17); Calcium 9.2 mg/dL (8.4-10.2); Carbon Dioxide 28 mmol/L (22-32); Chloride 104 mmol/L (98-107); Cholesterol 164 mg/dL (140-199); Estimated Glomerular Filt Rate > 60 mL/min (>60); Globulin 3.6 g/dL (1.7-4.1); Glucose 87 mg/dL (80-110); HDL Cholesterol 59 mg/dL (40-60); HEMOLYSIS < 15 (0-50); LDL Cholesterol Calculated 90 mg/dL (<100); Potassium 3.5 mmol/L (3.4-5.1); Sodium 140 mmol/L (137-145); Total Protein 7.8 g/dL (6.3-8.2); Triglycerides 76 mg/dL (35-150)
== END ==
PROVIDERS: PCP Internal Medicine; Referring Provider Internal Medicine; Visit Provider Internal Medicine
DX: E78.2 Mixed hyperlipidemia (principal); I10 Essential (primary) hypertension
CPT/HCPCS: 36415; 80053; 80061; 85027

== ENCOUNTER 2023-01-20 13:13 | Day surgery (SDC) | payer MEDICARE, OTHER, SELFPAY ==
[2021-05-10 14:26] VITALS: BMI 19.5
--- NOTE | 2023-01-20 | PATH_ITS ---
[facility] Accession Number: [id number] No. of containers..01 Tissue . 01 Material submitted: . rectum - RECTAL BIOPSY . 01 Diagnosis: Rectal Biopsy: Colonic mucosa with no significant diagnostic alterations. No active inflammation, granulomas, infectious organisms, dysplasia or malignancy. MRV 01/30/2023 1645 Local . 01 Electronically signed: . Kusum Morgan MD, Pathologist NPI- [id number] . 01 Gross description: . RECTAL BIOPSY: Received in formalin are 2 fragment(s) of ferrell, soft tissue measuring 0.2 x 0.2 x 0.2 cm to 0.3 x 0.3 x 0.3 cm submitted entirely in 1 cassette(s) /ANSELMO 01/23/20232007 Local . 01 Pathologist provided ICD-10: K60.2, K62.89 . 01 CPT . 275369 Specimen Comment: A courtesy copy of this report has been sent to [phone] Performed at: 01 [facility] [address] [place] [address], [place], [place] [id number] MD Ryan Rahman MD Phone: [phone]
[2023-01-20] MEDS: LACTATED RINGERS 1,000 ML 42 ML IV (13:20)
[2023-01-20 13:50] VITALS: BP 159/78; PULSE 78; RESP 16; TEMP 36.2; O2SAT 98; BMI 23.0
--- NOTE | 2023-01-20 14:01 | PM.PREOP ---
Pre-operative Note Interval Note History & Physical reviewed/Exam performed by Physician: Yes Changes to H&P: No H&P completed within 30 days and has changed as indicated here:: Continues to have rectal pain Will proceed with diagnostic sigmoidoscopy Overview of the procedure discussed. Procedural risks including but not limited to hemorrhage, missed diagnosis, intestinal injury and anesthetic complication discussed. She is in agreement with this plan and provides her written and verbal signature to proceed.
--- NOTE | 2023-01-20 14:14 | P.OP.COLON_ITS ---
Operative Date/Time/Diagnoses Date of procedure: 01/20/23 Time of procedure: 14:15 Pre-op diagnosis: Rectal pain Procedure & Clinicians Study performed: Sigmoidoscopy Same procedure as scheduled: Yes Indications: Rectal pain Surgeon: Nahun Chirinos Procedure Notes Procedure in detail: The history and physical was performed/updated and the patient is ASA class is 2. The procedure was discussed in detail with the patient. Potential risks complications including infection, bleeding, missed diagnosis, perforation, need for surgery, and were explained. Their questions were answered and informed consent was obtained. Patient was brought to the procedure room and placed standard monitoring equipment. The patient's vital signs were monitored continuously throughout the entire procedure. Prior to starting time-out was performed. The patient was placed in the left lateral recumbent position. Procedural sedation was administered by anesthesia. Examination began with a thorough inspection of the perianal area there was no evidence of fissures, fistulae, external hemorrhoids or cutaneous malignancy. The colonoscopy scope was then placed into the anal canal and was advanced to the transverse colon. The scope was then slowly withdrawn. Biopsies of the rectum were performed with forceps. The patient tolerated the procedure well. They will be discharged once criteria are met. The prep was of good/excellent quality. FINDINGS * Unremarkable sigmoidoscopy. * Normal colonic end and anastomosis of the distal colon * No masses, polyps, colitis. Specimen(s): other (Rectal biopsy) Impression: Normal sigmoidoscopy Post-procedure Recommendations: Will call with biopsy results Disposition: same day surgery
[2023-01-20 14:15] VITALS: BP 157/97; PULSE 72; RESP 16; TEMP 36.4; O2SAT 97
[2023-01-20 14:20] VITALS: BP 122/83; PULSE 78; RESP 11; O2SAT 92
[2023-01-20 14:25] VITALS: BP 131/89; PULSE 79; RESP 18; O2SAT 96
[2023-01-20 14:30] VITALS: BP 131/89; PULSE 71; RESP 14; O2SAT 96
== END 2023-01-20 14:50 | disposition home or self-care (01) ==
PROVIDERS: PCP Internal Medicine; Referring Provider Surgery; Visit Provider Surgery
PROC: 0DJD8ZZ Inspection of Lower Intestinal Tract, Via Natural or Artificial Opening Endoscopic (ICD-10-PCS; CPT 45378; principal; 2023-01-20 13:00)
DX: K62.89 Other specified diseases of anus and rectum (principal)
CPT/HCPCS: 45331; J2704

== ENCOUNTER 2023-01-22 11:16 | Emergency (ER) | payer MEDICARE, OTHER, SELFPAY ==
[2021-05-10 14:26] VITALS: BMI 19.5
[2023-01-22] VITALS (39 sets, daily range): BP systolic 90–157; BP diastolic 51–95; PULSE 65–99; RESP 14–23; TEMP 36.4–36.9; O2SAT 93–98; BMI 22.8
--- NOTE | 2023-01-22 11:34 | ED.ALLEREA ---
HPI - Allergic Reaction General Chief complaint: Allergic Reaction Stated complaint: reaction from colonoscpy T-2 Time Seen by Provider: 01/22/23 11:30 Source: patient Mode of arrival: Wheelchair History of Present Illness HPI narrative: Patient is an 82-year-old female who presents today with all over body rash. She reports that she had a colonoscopy 2 days ago according to anesthesia record she received propofol and Dilaudid. She reports that later that night she would an all over body rash. She called the provider next day told her to take some Benadryl she has no difficulty breathing or swallowing her tongue is not swollen lips are 1. She has hives all over her torso and extremities. She reports that Benadryl is not helping she is took 50 mg prior to arrival. Actually does noted to be slightly hypotensive with a blood pressure in 90s. Her blood pressure 2 days ago during surgery was in the 150s. And was discharged with a blood pressure 131/89. He says he continues to eat and drink Related Data Home Medications Medication Instructions Recorded Confirmed cyclosporine 0.05 % eye drops in a 1 drp ophthalmic (eye) BID 07/24/17 01/12/23 dropperette (Restasis) hydrocortisone acetate 25 mg 25 mg NV DAILY PRN 08/04/21 01/12/23 rectal suppository (Anucort-HC) ipratropium bromide 21 mcg (0.03 spray intranasal 08/04/21 01/12/23 %) nasal spray lidocaine 5 % topical cream 1 applic topical BID PRN 08/04/21 01/12/23 polyethylene glycol 3350 17 17 g PO DAILY PRN constipation 08/04/21 01/12/23 gram/dose oral powder (Miralax) Previous Rx's Medication Instructions Recorded sumatriptan succinate 100 mg tablet See Rx Instructions PO .COMPLEX 12/17/18 #10 tabs duloxetine 60 mg capsule,delayed 60 mg PO DAILY #90 caps 03/21/22 release terbinafine HCl 250 mg tablet 250 mg PO DAILY #10 tabs 03/25/22 trazodone 150 mg tablet 150 mg PO BEDTIME #90 tabs 03/25/22 estradiol 0.01% (0.1 mg/gram) 1 appful vaginal DAILY PRN vaginal 04/20/22 vaginal cream dryness #42.5 grams furosemide 40 mg tablet 40 mg PO DAILY #90 tabs 01/03/23 losartan 25 mg tablet 25 mg PO DAILY #90 tabs 01/03/23 pregabalin 100 mg capsule 100 mg PO BID #180 caps 01/03/23 rosuvastatin 10 mg tablet 10 mg PO DAILY #90 tabs 01/09/23 cephalexin 500 mg capsule 500 mg PO BID 7 days #14 caps 01/22/23 prednisone 20 mg tablet 40 mg (2 x 20 mg) PO DAILY #10 tabs 01/22/23 Allergies Allergy/AdvReac Type Severity Reaction Status Date / Time hydromorphone [From Dilaudid] Allergy Intermediate Rash Verified 01/22/23 16:43 propofol Allergy Intermediate Rash Verified 01/22/23 16:43 baclofen [BACLOFEN] Allergy Unknown Verified 01/20/23 13:34 cyclobenzaprine Allergy Unknown Verified 01/20/23 13:34 [From FLEXERIL] nortriptyline [NORTRIPTYLINE] Allergy Unknown Verified 01/20/23 13:34 Sulfa (Sulfonamide AdvReac Mild vomiting Verified 01/22/23 11:32 Antibiotics) [SULFA (SULFONAMIDE ANTIBIOTICS)] pantoprazole [From PROTONIX] AdvReac Unknown NAUSEA/DIAR Verified 01/20/23 13:34 SEAN Patient History Medical History (Updated 01/22/23 @ 16:40 by Denise Zazueta DO) Do not resuscitate Hearing loss Fecal incontinence Hemorrhoid Chronic back pain History of traumatic brain injury Mild cognitive impairment Mixed hyperlipidemia Essential hypertension Generalized anxiety disorder Depression, major, recurrent Tylenol overdose Dementia Chronic pain syndrome Irritable bowel syndrome (IBS) Migraine History of femur fracture Spinal stenosis Degenerative arthritis Anxiety Depression Hypertension Peptic ulcer hemorrhage Chronic rectal pain Surgical History History of appendectomy H/O: hysterectomy Social History marital status: unmarried,single household members: significant other caregiver/support person: Yes other: She drinks about 2 alcoholic beverages a week. No cigarette smoking Smoking Status: Never smoker Smoking Status: Never smoker alcohol intake frequency: a few times a month Substance Use Type: does not use Exam Initial Vital Signs Initial Vital Signs: Vital Signs Temperature 97.5 F L 01/22/23 11:26 Pulse Rate 93 H 01/22/23 11:26 Respiratory Rate 20 01/22/23 11:26 Blood Pressure 94/63 01/22/23 11:26 Pulse Oximetry 96 01/22/23 11:26 Oxygen Delivery Method Room Air 01/22/23 11:26 GENERAL: Alert very pleasant 82-year-old female HEENT: Head atraumatic,EOMI, pupils reactive, face symmetric, no tongue swelling lip swelling CARDIOVASCULAR: Regular rate and rhythm without murmurs, rubs or gallops. RESPIRATORY: Breath sounds equal bilaterally, no wheezes rales or rhonchi. No stridor managing own secretions ABDOMEN: Soft, nontender. Normoactive bowel sounds all 4 quadrants. No guarding or rebound. EXTREMITIES: Normal range of motion, no clubbing or edema. Neurovascularly intact NEUROLOGICAL: Alert and oriented x4.Normal gait and speech. SKIN: All over diffuse urticaria no face involvement blanchable Course Orders Ordered: ED Orders 01/22/23 11:35 CBC Auto Diff [Complete Blood Count AUTO DIFF] Stat CMP [Comprehensive Metabolic Panel] Stat Lactate (Lactic Acid) Stat Procalcitonin Stat 01/22/23 13:11 Urine Culture Stat Urine Microscopic Stat 01/22/23 15:17 BMP [Basic Metabolic Panel] Stat Discontinued Medications Famotidine (Famotidine 20 Mg/2 Ml Vial) 20 mg IV NOW [facility] Last Admin: 01/22/23 11:39 Dose: 20 mg Documented By: VEREINCE Sodium Chloride (Normal Saline 0.9%) 1,000 mls @ 1,000 mls/hr IV BOLUS ONE Stop: 01/22/23 12:33 Last Infusion: 01/22/23 12:24 Dose: Infused Documented By: Admin: 01/22/23 11:39 Dose: 1,000 mls/hr Documented By: VERENICE Sodium Chloride (Normal Saline 0.9%) 1,000 mls @ 1,000 mls/hr IV BOLUS ONE Stop: 01/22/23 13:07 Last Infusion: 01/22/23 13:37 Dose: Infused Documented By: Admin: 01/22/23 12:24 Dose: 1,000 mls/hr Documented By: VERENICE POTASSIUM CHLORIDE IN WATER (Potassium Cl 10 Meq/100 Ml Vijaya) 10 meq in 100 mls @ 100 mls/hr IV Q1H COURTNEY Stop: 01/22/23 14:14 Last Infusion: 01/22/23 15:05 Dose: Infused Documented By: Admin: 01/22/23 13:39 Dose: 100 mls/hr Documented By: Infusion: 01/22/23 13:34 Dose: Infused Documented By: Admin: 01/22/23 12:24 Dose: 100 mls/hr Documented By: VERENICE Ceftriaxone Sodium 1,000 mg/ (Sodium Chloride) 100 mls @ 200 mls/hr IV NOW ONE Stop: 01/22/23 13:39 Last Infusion: 01/22/23 14:38 Dose: Infused Documented By: Admin: 01/22/23 13:55 Dose: 200 mls/hr Documented By: COSMO Sodium Chloride (Normal Saline 0.9%) 1,000 mls @ 1,000 mls/hr IV BOLUS ONE Stop: 01/22/23 14:52 Last Infusion: 01/22/23 16:08 Dose: Infused Documented By: Admin: 01/22/23 13:58 Dose: 1,000 mls/hr Documented By: COSMO Methylprednisolone (Methylprednisolone 125 Mg/2 Ml Vial) 125 mg IV NOW ONE Stop: 01/22/23 11:35 Last Admin: 01/22/23 11:39 Dose: 125 mg Documented By: VERENICE Vital Signs Vital signs: Vital Signs - 8 hr 01/22/23 11:26 01/22/23 11:31 01/22/23 11:42 Temperature 97.5 F L Pulse Rate 93 H 99 H 78 Respiratory Rate 20 22 Blood Pressure 94/63 Pulse Oximetry 96 95 93 Oxygen Delivery Method Room Air 01/22/23 11:42 01/22/23 11:50 01/22/23 11:50 Temperature Pulse Rate 74 Respiratory Rate 19 Blood Pressure 104/74 125/62 Pulse Oximetry 94 Oxygen Delivery Method 01/22/23 12:00 01/22/23 12:00 01/22/23 12:10 Temperature Pulse Rate 69 Respiratory Rate 17 Blood Pressure 124/68 122/61 Pulse Oximetry 95 Oxygen Delivery Method 01/22/23 12:10 01/22/23 12:20 01/22/23 12:20 Temperature Pulse Rate 69 72 Respiratory Rate 17 21 Blood Pressure 128/61 Pulse Oximetry 96 97 Oxygen Delivery Method 01/22/23 12:30 01/22/23 12:30 01/22/23 12:40 Temperature Pulse Rate 68 73 Respiratory Rate 15 19 Blood Pressure 135/64 Pulse Oximetry 96 96 Oxygen Delivery Method 01/22/23 12:40 01/22/23 12:50 01/22/23 12:50 Temperature Pulse Rate 66 Respiratory Rate 17 Blood Pressure 133/64 119/62 Pulse Oximetry Oxygen Delivery Method 01/22/23 13:00 01/22/23 13:00 01/22/23 13:10 Temperature Pulse Rate 67 Respiratory Rate 20 Blood Pressure 117/65 142/64 H Pulse Oximetry 98 Oxygen Delivery Method 01/22/23 13:10 01/22/23 13:20 01/22/23 13:20 Temperature Pulse Rate 68 68 Respiratory Rate 20 14 Blood Pressure 128/65 Pulse Oximetry 98 98 Oxygen Delivery Method 01/22/23 13:30 01/22/23 13:30 01/22/23 13:40 Temperature Pulse Rate 67 Respiratory Rate 16 Blood Pressure 141/70 H 128/69 Pulse Oximetry 97 Oxygen Delivery Method 01/22/23 13:40 01/22/23 13:50 01/22/23 13:50 Temperature Pulse Rate 71 69 Respiratory Rate 20 18 Blood Pressure 130/69 Pulse Oximetry 96 96 Oxygen Delivery Method 01/22/23 14:00 01/22/23 14:00 01/22/23 14:05 Temperature Pulse Rate 75 74 Respiratory Rate 21 22 Blood Pressure 127/67 Pulse Oximetry 95 95 Oxygen Delivery Method 01/22/23 14:05 01/22/23 14:10 01/22/23 14:10 Temperature Pulse Rate 71 Respiratory Rate 15 Blood Pressure 147/68 H 127/63 Pulse Oximetry 96 Oxygen Delivery Method 01/22/23 14:20 01/22/23 14:20 01/22/23 14:30 Temperature Pulse Rate 71 72 Respiratory Rate 18 18 Blood Pressure 100/59 L Pulse Oximetry 94 94 Oxygen Delivery Method 01/22/23 14:30 01/22/23 14:40 01/22/23 14:40 Temperature Pulse Rate 70 Respiratory Rate 17 Blood Pressure 93/54 L 95/52 L Pulse Oximetry 95 Oxygen Delivery Method 01/22/23 14:50 01/22/23 14:50 01/22/23 14:51 Temperature Pulse Rate 70 Respiratory Rate 17 Blood Pressure 90/51 L 106/59 L Pulse Oximetry 95 Oxygen Delivery Method 01/22/23 14:51 01/22/23 14:58 01/22/23 14:58 Temperature Pulse Rate 82 88 Respiratory Rate 22 18 Blood Pressure 150/95 H Pulse Oximetry 96 Oxygen Delivery Method 01/22/23 15:00 01/22/23 15:00 01/22/23 15:10 Temperature Pulse Rate 67 Respiratory Rate 18 Blood Pressure 151/69 H 139/70 Pulse Oximetry 98 Oxygen Delivery Method 01/22/23 15:10 01/22/23 15:11 01/22/23 15:11 Temperature Pulse Rate 66 75 Respiratory Rate 16 15 Blood Pressure 137/75 Pulse Oximetry 96 96 Oxygen Delivery Method 01/22/23 15:20 01/22/23 15:20 01/22/23 15:30 Temperature Pulse Rate 65 66 Respiratory Rate 15 20 Blood Pressure 135/78 Pulse Oximetry 97 97 Oxygen Delivery Method 01/22/23 15:30 01/22/23 15:40 01/22/23 15:40 Temperature Pulse Rate 66 Respiratory Rate 17 Blood Pressure 134/75 126/64 Pulse Oximetry 94 Oxygen Delivery Method 01/22/23 15:50 01/22/23 15:50 01/22/23 16:00 Temperature Pulse Rate 65 76 Respiratory Rate 18 23 Blood Pressure 133/72 Pulse Oximetry 97 Oxygen Delivery Method 01/22/23 16:01 01/22/23 16:01 01/22/23 16:10 Temperature Pulse Rate 68 Respiratory Rate 19 Blood Pressure 157/68 H 136/61 Pulse Oximetry 97 Oxygen Delivery Method 01/22/23 16:10 01/22/23 16:20 01/22/23 16:20 Temperature Pulse Rate 65 69 Respiratory Rate 19 19 Blood Pressure 101/56 L Pulse Oximetry 96 93 Oxygen Delivery Method 01/22/23 16:30 01/22/23 16:30 01/22/23 16:36 Temperature Pulse Rate 71 70 Respiratory Rate 18 17 Blood Pressure 99/57 L Pulse Oximetry 93 95 Oxygen Delivery Method 01/22/23 16:36 01/22/23 16:40 01/22/23 16:40 Temperature 98.5 F Pulse Rate 65 Respiratory Rate 19 Blood Pressure 107/60 123/64 Pulse Oximetry 95 Oxygen Delivery Method MDM - Allergic Reaction Lab Data 01/22/23 11:35 01/22/23 15:17 Labs: Lab Results 01/22/23 01/22/23 01/22/23 Range/Units 11:35 13:11 15:17 WBC 5.7 (4.5-11.0) X10^3/uL RBC 4.71 (4.0-5.2) X10^6/uL Hgb 13.7 (12.0-16.0) g/dL Hct 40.5 (36-46) % MCV 85.9 (80-100) fL MCH 29.0 (26-34) PG MCHC 33.7 (30-36) % RDW 14.4 (11.6-14.8) % Plt Count 264 (150-400) X10^3/uL Neut % (Auto) 68.2 (50-75) % Lymph % (Auto) 27.6 (25-40) % [place] % (Auto) 2.8 L (3-14) % Eos % (Auto) 0.9 L (2-4) % Baso % (Auto) 0.5 (0-2) % Neut # (Auto) 3900 (2212-9977) /uL Lymph # (Auto) 1600 (8023-1466) /uL [place] # (Auto) 200 (0-900) /uL Eos # (Auto) 0 (0-450) /uL Baso # (Auto) 0 (0-100) /uL Sodium 140 141 (137-145) mmol/L Potassium 2.8 L 3.1 L (3.4-5.1) mmol/L Chloride 103 110 H (98-107) mmol/L Carbon Dioxide 23 24 (22-32) mmol/L BUN 42 H 34 H (7-17) mg/dL Creatinine 1.50 H 1.06 H (0.52-1.04) mg/dL Estimated GFR 35 L 53 L (>60) mL/min BUN/Creatinine Ratio 28.0 H 32.1 H (6-22) Glucose 157 H 127 H (80-110) mg/dL Lactate 2.4 H 1.6 (0.7-2.1) mmol/L Calcium 9.7 8.1 L (8.4-10.2) mg/dL Total Bilirubin 0.6 (0.2-1.3) mg/dL AST 32 (14-36) IU/L ALT 23 (<35) IU/L Alkaline Phosphatase 59 (38-126) U/L Total Protein 7.2 (6.3-8.2) g/dL Albumin 4.2 (3.5-5.0) g/dL Globulin 3.0 (1.7-4.1) g/dL Albumin/Globulin Ratio 1.4 (1.0-2.8) Procalcitonin 0.08 (<0.5) ng/mL Urine RBC 1-5/hpf (0-5/HPF) Urine WBC 10-30/hpf H (0-5/HPF) Ur Squamous Epith Cells 5-10 /hpf H (0-5/HPF) Urine Bacteria Many (>30) H (None) Urine Mucus 1+ H (Negative) Ur Culture Indicated? Specimen cultured Urine Dip Bedside Urine Glucose Negative Bedside Urine Bilirubin - Negative Bedside Urine Ketone - Negative Urine Specific [place] 1.020 Bedside Urine Occult Blood +/- Bedside Urine pH 6.0 Bedside Urine Protein +/- 15 Bedside Urine Urobilinogen - Negative Bedside Urine Nitrite + Positive Bedside Urine Leukocytes +++ 500 Esterase MDM Narrative Medical decision making narrative: Patient presents today with all over urticaria concerning for allergic reaction. However blood pressure is also low could potentially be anaphylaxis. Labs: No leukocytosis or anemia, potassium 2.8, BUN 42, creatinine 1.5 previously 0.69, urinalysis positive for leukocytes and nitrates. Patient continues to have hives despite Solu-Medrol and Pepcid. Blood pressure improved significantly with IV fluids. She is given a dose of Rocephin and her potassium is replaced. She urinated multiple times with IV fluids. Hives completely resolved at time of discharge. Labs were rechecked creatinine improved significantly from 1.5-1.0 potassium improved from 2.8 test read 0.1. I am not convinced that this is an anaphylactic hypotensive reaction. She is no airway compromise although with hypotension and hives it is possible. However it does not sound like she is drinking a lot she has TAMELA which improved with IV fluids also her blood pressure improved with IV was. Her potassium is a little low unclear why at this time. She is found to have a UTI nitrates and leukocytes. Her lactate was slightly elevated is also improved with fluids. She ambulated steady gait. Discharge Plan Departure Patient Disposition: Home Clinical Impression: TAMELA (acute kidney injury), Allergic reaction, Acute hypokalemia, Acute UTI Instructions: DI for Anaphylaxis, DI for Urinary Tract Infection (UTI) Activity Restrictions/Additional Instructions: *You have been diagnosed with allergic reaction, bladder infection *What to do: At this time I suspect that you are either allergic to propofol or Dilaudid unclear which 1. But please be sure to add this to your allergy list. I think you are also likely dehydrated you received multiple L of fluid and your numbers have improved. Your potassium was also noted to be slightly low but we replaced that. *Continue to take medications as directed--> [facility] Kef[facility] 500 mg twice a day for 5 days Prednisone 40 mg once a day for 5 days *Follow up with your primary care provider in 2-3 days or call [phone] *Return to ER if you should have increasing rash difficulty breathing throat closing dizziness lightheadedness or any new, worsening or concerning symptoms Prescriptions: New prednisone 20 mg tablet 40 mg PO DAILY Qty: 10 0RF cephalexin 500 mg capsule 500 mg PO BID 7 Days Qty: 14 0RF No Action sumatriptan succinate 100 mg tablet See Rx Instructions PO .COMPLEX Qty: 10 0RF Dose Instruction: take 1 tab at onset of headache; if no relief may repeat 1 tab in 2hr; max = 2 tabs/24 hrs PO Rx Instructions: take 1 tab at onset of headache; if no relief may repeat 1 tab in 2hr; max = 2 tabs/24 hrs PO duloxetine 60 mg capsule,delayed release(DR/EC) 60 mg PO DAILY Qty: 90 0RF estradiol 0.01 % (0.1 mg/gram) cream 1 appful VAGINAL DAILY PRN (Reason: vaginal dryness) Qty: 42.5 3RF furosemide 40 mg tablet 40 mg PO DAILY Qty: 90 1RF losartan 25 mg tablet 25 mg PO DAILY Qty: 90 1RF pregabalin 100 mg capsule 100 mg PO BID Qty: 180 1RF rosuvastatin 10 mg tablet 10 mg PO DAILY Qty: 90 1RF ipratropium bromide 21 mcg (0.03 %) spray,non-aerosol intranasal hydrocortisone acetate [Anucort-HC] 25 mg suppository 25 mg NV DAILY PRN lidocaine 5 % cream 1 applic topical BID PRN polyethylene glycol 3350 [Miralax] 17 gram/dose powder 17 g PO DAILY PRN (Reason: constipation) terbinafine HCl 250 mg tablet 250 mg PO DAILY Qty: 10 1RF trazodone 150 mg tablet 150 mg PO BEDTIME Qty: 90 3RF Restasis 0.05 % Dropperette 1 drp ophthalmic (eye) BID Referrals: Eric Youssef MD [Primary Care Provider] - Stand Alone Forms: Patient Portal/API
[2023-01-22] MEDS: SODIUM CHLORIDE 0.9% 1,000 ML 1000 ML IV ×3 (11:39→13:58)
[2023-01-22] MEDS: FAMOTIDINE 20 MG/2 ML VIAL IV (11:39)
[2023-01-22] MEDS: methylPREDNISolone 125 MG/2 ML VIAL IV (11:39)
[2023-01-22 11:41] LABS: Add Manual Diff / Slide Review NO; Basophils Absolute Auto 0 /uL (0-100); Basophils Percent Auto 0.5 % (0-2); Eosinophils Absolute Auto 0 /uL (0-450); Eosinophils Percent Auto 0.9 % (2-4); Hematocrit 40.5 % (36-46); Hemoglobin 13.7 g/dL (12.0-16.0); Lymphocytes Absolute Auto 1600 /uL (1100-4500); Lymphocytes Percent Auto 27.6 % (25-40); Mean Corpuscular HGB Conc 33.7 % (30-36); Mean Corpuscular Volume 85.9 fL (80-100); Monocytes Absolute Auto 200 /uL (0-900); Monocytes Percent Auto 2.8 % (3-14); Neutrophils Absolute Auto 3900 /uL (1500-7000); Neutrophils Percent Auto 68.2 % (50-75); Platelet Count 264 X10^3/uL (150-400); Red Blood Cell Count 4.71 X10^6/uL (4.0-5.2); Red Cell Distribution Width 14.4 % (11.6-14.8); White Blood Cell Count 5.7 X10^3/uL (4.5-11.0)
--- NOTE | 2023-01-22 11:47 | PC.NURSE ---
Pt arrived to ED with and reports that she had a colonoscopy on monday. Pt was discharged from recovery unit and felt fine. Pt states that she began having an itchy red rash monday afternoon and called the surgeons office and was advised to try using benadryl. pt has been taking benadryl since monday afternoon and states that rash has been getting worse. Red blotchy and raised rash noted on arms and trunk. Pt denies any SOB or difficulty breathing. Pt bp 94/63 up arrival and stated that pt normally runs in 120s. Dr Zazueta notified.
[2023-01-22 11:52] LABS: Alanine Aminotransferase 23 IU/L (<35); Albumin 4.2 g/dL (3.5-5.0); Albumin Globulin Ratio 1.4 (1.0-2.8); Alkaline Phosphatase 59 U/L (38-126); Aspartate Aminotransferase 32 IU/L (14-36); Bilirubin Total 0.6 mg/dL (0.2-1.3); Blood Urea Nitrogen 42 mg/dL (7-17); Calcium 9.7 mg/dL (8.4-10.2); Carbon Dioxide 23 mmol/L (22-32); Chloride 103 mmol/L (98-107); Estimated Glomerular Filt Rate 35 mL/min (>60); Glucose 157 mg/dL (80-110); HEMOLYSIS < 15 (0-50); Potassium 2.8 mmol/L (3.4-5.1); Sodium 140 mmol/L (137-145); Total Protein 7.2 g/dL (6.3-8.2)
[2023-01-22] MEDS: POTASSIUM CHLORIDE IN WATER 10 MEQ/100 ML PIGGYBACK 100 MEQ IV ×2 (12:24→13:39)
--- NOTE | 2023-01-22 12:30 | PC.NURSE ---
Pt stated that she needed to take her shoes off because her feet started to hurt and she has noticed some swelling since her colonoscopy. Pt also reported that her rash did not feel as itchy. Rash appears to be improving and redness on chest/trunk area has reduced. Pt still denies any SOB or difficulty breathing.
[2023-01-22 13:32] LABS: Bacteria Urine Many (>30); Culture Indicated Urine Specimen Cultured; Mucus Urine 1+ (Negative); RBC Urine 1-5/HPF (0-5/HPF); Squamous Epithelial Cell Urine 5-10 /HPF (0-5/HPF); WBC Urine 10-30/HPF (0-5/HPF)
[2023-01-22] MEDS: cefTRIAXone 1,000 MG in SODIUM CHLORIDE 0.9% 100 ML 200 MG IV (13:55)
[2023-01-22 14:00] LABS: Lactate (Lactic Acid) 2.4 mmol/L (0.7-2.1)
[2023-01-22 14:19] LABS: Procalcitonin 0.08 ng/mL (<0.5)
[2023-01-22 15:33] LABS: BUN Creatinine Ratio 32.1 (6-22); Blood Urea Nitrogen 34 mg/dL (7-17); Calcium 8.1 mg/dL (8.4-10.2); Carbon Dioxide 24 mmol/L (22-32); Chloride 110 mmol/L (98-107); Estimated Glomerular Filt Rate 53 mL/min (>60); Glucose 127 mg/dL (80-110); HEMOLYSIS < 15 (0-50); Potassium 3.1 mmol/L (3.4-5.1); Sodium 141 mmol/L (137-145)
[2023-01-22 15:35] LABS: Reflexed Lactate in 2 Hours Y
[2023-01-22 15:45] LABS: Lactate 2HR (Lactic Acid Rflx) 1.6 mmol/L (0.7-2.1)
--- NOTE | 2023-01-22 16:58 | PC.NURSE ---
Ambulated pt with walker down hallway prior to departure. Pt uses walker at home
== END 2023-01-22 17:02 | disposition home or self-care (01) ==
PROVIDERS: Emergency Provider Emergency Medicine; PCP Internal Medicine
DX: N17.9 Acute kidney failure, unspecified (principal); E87.6 Hypokalemia; N39.0 Urinary tract infection, site not specified; R21 Rash and other nonspecific skin eruption; T78.40XA Allergy, unspecified, initial encounter
CPT/HCPCS: 36415; 80048; 80053; 81003; 81015; 83605; 84145; 85025; 87077; 87086; 87186; 96361; 96365; 96366; 96368; 96375; 99284; J0696; J2930

== ENCOUNTER → 2023-04-05 11:24 | Outpatient (CLI) | payer MEDICARE, OTHER, SELFPAY ==
[2021-05-10 14:26] VITALS: BMI 19.5
[2023-04-05 13:57] LABS: BUN Creatinine Ratio 24.3 (6-22); Blood Urea Nitrogen 17 mg/dL (7-17); Calcium 9.6 mg/dL (8.4-10.2); Carbon Dioxide 30 mmol/L (22-32); Chloride 102 mmol/L (98-107); Estimated Glomerular Filt Rate > 60 mL/min (>60); Glucose 78 mg/dL (80-110); HEMOLYSIS < 15 (0-50); Potassium 4.2 mmol/L (3.4-5.1); Sodium 139 mmol/L (137-145)
== END ==
PROVIDERS: PCP Internal Medicine; Referring Provider Physician Assistant; Visit Provider Physician Assistant
DX: N17.9 Acute kidney failure, unspecified (principal); E87.6 Hypokalemia
CPT/HCPCS: 36415; 80048

== ENCOUNTER 2023-04-14 11:41 | Emergency (ER) | payer MEDICARE, OTHER, SELFPAY ==
[2021-05-10 14:26] VITALS: BMI 19.5
[2023-04-14] VITALS (7 sets, daily range): BP systolic 93–111; BP diastolic 61–68; PULSE 69–78; RESP 14–25; TEMP 36.8; O2SAT 93–94
--- NOTE | 2023-04-14 11:46 | DI.RAD.S_ITS ---
PROCEDURE: XR WRIST RT MIN 3V INDICATIONS: eval for FX TECHNIQUE: 4 views of the wrist were acquired. COMPARISON: [facility], , WRIST MINIMUM 3 VIEWS LEFT, 04/11/2012, 13:25. FINDINGS: Bones: Markedly comminuted impacted distal radius fracture extending to the articular surface with associated distal radial ulnar dislocation. Advanced degenerative arthritis at the base of the thumb is incidentally noted. Question nondisplaced ulnar styloid avulsion. No other fractures or dislocations. Soft tissues: No suspicious soft tissue calcifications. IMPRESSION: Markedly comminuted, impacted, displaced distal radius fracture extending to the articular surface with associated distal radial ulnar dislocation. Question associated ulnar styloid avulsion. Dictated by: Skinny Bonilla M.D. on 04/14/2023 at 13:38 Approved by: Skinny Bonilla M.D. on 04/14/2023 at 13:39
--- NOTE | 2023-04-14 11:57 | DI.RAD.S_ITS ---
PROCEDURE: XR CHEST 1V INDICATIONS: chest pain TECHNIQUE: One view of the chest was acquired. COMPARISON: [facility], CR, XR CHEST 1V, 05/10/2021, 10:06. FINDINGS: Surgical changes and devices: None. Lungs and pleura: Mild right basilar scarring. Question emphysematous change. No pleural effusions or pneumothorax. Mediastinum: Mediastinal contours appear normal. Cardiomegaly. Bones and chest wall: No suspicious bony lesions. Overlying soft tissues appear unremarkable. IMPRESSION: Question emphysematous change. No acute pulmonary infiltrates. Cardiomegaly. Dictated by: Skinny Bonilla M.D. on 04/14/2023 at 13:39 Approved by: Skinny Bonilla M.D. on 04/14/2023 at 13:41
[2023-04-14 12:20] LABS: Add Manual Diff / Slide Review NO; Basophils Absolute Auto 100 /uL (0-100); Eosinophils Absolute Auto 100 /uL (0-450); Eosinophils Percent Auto 1.2 % (2-4); Hematocrit 39.4 % (36-46); Hemoglobin 13.1 g/dL (12.0-16.0); Lymphocytes Absolute Auto 1200 /uL (1100-4500); Lymphocytes Percent Auto 13.7 % (25-40); Mean Corpuscular HGB Conc 33.3 % (30-36); Mean Corpuscular Hemoglobin 28.5 PG (26-34); Mean Corpuscular Volume 85.6 fL (80-100); Monocytes Absolute Auto 600 /uL (0-900); Monocytes Percent Auto 6.9 % (3-14); Neutrophils Absolute Auto 7000 /uL (1500-7000); Neutrophils Percent Auto 77.2 % (50-75); Platelet Count 266 X10^3/uL (150-400); Red Blood Cell Count 4.61 X10^6/uL (4.0-5.2); Red Cell Distribution Width 13.9 % (11.6-14.8); White Blood Cell Count 9.1 X10^3/uL (4.5-11.0)
[2023-04-14 12:26] LABS: Prothrombin Time 11.5 SECONDS (9.4-12.5)
[2023-04-14 12:29] LABS: PTT Partial Thromboplastin Tim 35 SECONDS (25.1-36.5)
[2023-04-14 12:31] LABS: Alanine Aminotransferase 26 IU/L (<35); Albumin 4.3 g/dL (3.5-5.0); Albumin Globulin Ratio 1.3 (1.0-2.8); Alkaline Phosphatase 81 U/L (38-126); Aspartate Aminotransferase 31 IU/L (14-36); BUN Creatinine Ratio 25.2 (6-22); Bilirubin Total 0.6 mg/dL (0.2-1.3); Blood Urea Nitrogen 59 mg/dL (7-17); Calcium 9.4 mg/dL (8.4-10.2); Carbon Dioxide 25 mmol/L (22-32); Chloride 99 mmol/L (98-107); Creatine Kinase 212 U/L (30-135); Estimated Glomerular Filt Rate 20 mL/min (>60); Globulin 3.3 g/dL (1.7-4.1); Glucose 80 mg/dL (80-110); HEMOLYSIS < 15 (0-50); Lipase 168 U/L (23-300); Magnesium 2.3 mg/dL (1.6-2.3); Potassium 3.3 mmol/L (3.4-5.1); Sodium 135 mmol/L (137-145); Total Protein 7.6 g/dL (6.3-8.2)
[2023-04-14] MEDS: ASPIRIN 81 MG CHEW TAB 324 MG PO (12:40)
[2023-04-14 12:43] LABS: Troponin I 0.024 ng/mL (0.01-0.034)
--- NOTE | 2023-04-14 12:55 | ED_ITS ---
HPI - Fall General Chief Complaint: Fall Stated Complaint: fall, hand injury Time Seen by Provider: 04/14/23 11:44 Source: patient Mode of arrival: Wheelchair History of Present Illness HPI Narrative: Patient is an 83-year-old female. Sent from the walk-in clinic for evaluation of a right wrist injury and hypotension. Patient states that yesterday she was at her home. She normally either uses a walker or uses the furniture in the [place] to help her get around. She was doing this yesterday and she states that she became lightheaded and fell and injured her wrist. Did not hit her head. No loss of consciousness. Not on blood thinners. No other injuries from the event. She went to the walk-in clinic and was found to have a systolic blood pressure in the 70s. Initially reported to be asymptomatic but then mentioned to the staff of the walk-in clinic that she felt lightheaded. Here in the ER she states she currently does not feel lightheaded but she felt lightheaded yesterday when she found. Her blood pressure is improved in triage. Related Data Home Medications Medication Instructions Recorded Confirmed cyclosporine 0.05 % eye drops in a 1 drp ophthalmic (eye) BID 07/24/17 04/14/23 dropperette (Restasis) hydrocortisone acetate 25 mg 25 mg AK DAILY PRN 08/04/21 04/14/23 rectal suppository (Anucort-HC) ipratropium bromide 21 mcg (0.03 spray intranasal 08/04/21 04/14/23 %) nasal spray lidocaine 5 % topical cream 1 applic topical BID PRN 08/04/21 04/14/23 polyethylene glycol 3350 17 17 g PO DAILY PRN constipation 08/04/21 04/14/23 gram/dose oral powder (Miralax) Previous Rx's Medication Instructions Recorded sumatriptan succinate 100 mg tablet See Rx Instructions PO .COMPLEX 12/17/18 #10 tabs estradiol 0.01% (0.1 mg/gram) 1 appful vaginal DAILY PRN vaginal 04/20/22 vaginal cream dryness #42.5 grams pregabalin 100 mg capsule 100 mg PO BID #180 caps 01/03/23 duloxetine 60 mg capsule,delayed 60 mg PO DAILY #90 caps 04/06/23 release furosemide 40 mg tablet 40 mg PO DAILY #90 tabs 04/06/23 losartan 25 mg tablet 25 mg PO DAILY #90 tabs 04/06/23 rosuvastatin 10 mg tablet 10 mg PO DAILY #90 tabs 04/06/23 trazodone 150 mg tablet 150 mg PO BEDTIME #90 tabs 04/06/23 Allergies Allergy/AdvReac Type Severity Reaction Status Date / Time hydromorphone [From Dilaudid] Allergy Intermediate Rash Verified 04/14/23 10:44 propofol Allergy Intermediate Rash Verified 04/14/23 10:44 baclofen [BACLOFEN] Allergy Unknown Verified 04/14/23 10:44 cyclobenzaprine Allergy Unknown Verified 04/14/23 10:44 [From FLEXERIL] nortriptyline [NORTRIPTYLINE] Allergy Unknown Verified 04/14/23 10:44 Sulfa (Sulfonamide AdvReac Mild vomiting Verified 04/14/23 10:44 Antibiotics) [SULFA (SULFONAMIDE ANTIBIOTICS)] pantoprazole [From PROTONIX] AdvReac Unknown NAUSEA/DIAR Verified 04/14/23 10:44 SEAN Review of Systems Review of Systems ROS Unobtainable: All systems reviewed & are unremarkable except as noted in HPI and below Patient History Medical History Do not resuscitate Hearing loss Fecal incontinence Hemorrhoid Chronic back pain History of traumatic brain injury Mild cognitive impairment Mixed hyperlipidemia Essential hypertension Generalized anxiety disorder Depression, major, recurrent Tylenol overdose Dementia Chronic pain syndrome Irritable bowel syndrome (IBS) Migraine History of femur fracture Spinal stenosis Degenerative arthritis Anxiety Depression Hypertension Peptic ulcer hemorrhage Chronic rectal pain Surgical History History of appendectomy H/O: hysterectomy Social History marital status: unmarried,single household members: significant other caregiver/support person: Yes other: She drinks about 2 alcoholic beverages a week. No cigarette smoking Smoking Status: Never smoker Smoking Status: Never smoker alcohol intake frequency: a few times a month Substance Use Type: does not use Exam Initial Vital Signs Initial Vital Signs: Vital Signs Temperature 98.2 F 04/14/23 11:49 Pulse Rate 69 04/14/23 11:49 Respiratory Rate 16 04/14/23 11:49 Blood Pressure 93/61 04/14/23 11:49 Const General: cooperative, comfortable and No ill appearing [facility] Head: normal to inspection and normocephalic Resp Effort & Inspection: normal respiratory effort Auscultation: clear to auscultation bilaterally Cardio Rate: regular rate Rhythm: regular rhythm Pulses: radial pulses present on the right Skin Other: Small skin abrasion on the right forearm Neuro Sensory Exam: no sensory deficits noted Extrem Other: Obvious deformities of the right wrist. Tender to palpation of the right wrist. No other extremity injuries. Procedures Orthopedic Splinting/Casting Injury #1: Side: right Upper Extremity Injury Location: wrist Upper Extremity Immobilizer: sugar tong splint Post splinting neuro exam: intact Post splinting vascular exam: intact Placed by: Provider Course Orders Ordered: ED Orders 04/14/23 11:46 XR wrist RT min 3V Stat 04/14/23 11:57 XR chest 1V Stat 04/14/23 12:01 EKG-12 Lead Stat 04/14/23 12:10 Complete Blood Count AUTO DIFF Stat Comprehensive Metabolic Panel Stat Lipase Stat Magnesium Stat PTT Partial Thromboplastin Simba Stat Prothrombin Time INR Stat Troponin & CK Cardiac Panel Stat Discontinued Medications Aspirin (Aspirin 81 Mg Chew Tab) 324 mg PO NOW ONE Stop: 04/14/23 11:58 Last Admin: 04/14/23 12:40 Dose: 324 mg Documented By: RM Morphine Sulfate (Morphine 2 Mg/Ml Inj) 2 mg IV NOW ONE Stop: 04/14/23 12:56 Last Admin: 04/14/23 13:03 Dose: 2 mg Documented By: RM Vital Signs Vital signs: Vital Signs - 8 hr 04/14/23 11:49 04/14/23 11:55 04/14/23 11:55 Temperature 98.2 F Pulse Rate 69 78 Respiratory Rate 16 Blood Pressure 93/61 111/68 Pulse Oximetry 04/14/23 12:00 04/14/23 12:30 04/14/23 13:00 Temperature Pulse Rate 74 72 69 Respiratory Rate 20 19 15 Blood Pressure Pulse Oximetry 94 94 04/14/23 13:10 04/14/23 13:10 Temperature Pulse Rate 74 Respiratory Rate 25 H Blood Pressure 95/61 Pulse Oximetry 93 MDM - Fall Lab Data Attestation: I reviewed the patient's lab results. 04/14/23 12:10 04/14/23 12:10 Labs: Lab Results 04/14/23 Range/Units 12:10 WBC 9.1 (4.5-11.0) X10^3/uL RBC 4.61 (4.0-5.2) X10^6/uL Hgb 13.1 (12.0-16.0) g/dL Hct 39.4 (36-46) % MCV 85.6 (80-100) fL MCH 28.5 (26-34) PG MCHC 33.3 (30-36) % RDW 13.9 (11.6-14.8) % Plt Count 266 (150-400) X10^3/uL Neut % (Auto) 77.2 H (50-75) % Lymph % (Auto) 13.7 L (25-40) % [place] % (Auto) 6.9 (3-14) % Eos % (Auto) 1.2 L (2-4) % Baso % (Auto) 1.0 (0-2) % Neut # (Auto) 7000 (9961-3507) /uL Lymph # (Auto) 1200 (9312-8324) /uL [place] # (Auto) 600 (0-900) /uL Eos # (Auto) 100 (0-450) /uL Baso # (Auto) 100 (0-100) /uL PT 11.5 (9.4-12.5) SECONDS INR 1.0 (0.9-1.3) APTT 35 (25.1-36.5) SECONDS Sodium 135 L (137-145) mmol/L Potassium 3.3 L (3.4-5.1) mmol/L Chloride 99 (98-107) mmol/L Carbon Dioxide 25 (22-32) mmol/L BUN 59 H (7-17) mg/dL Creatinine 2.34 H (0.52-1.04) mg/dL Estimated GFR 20 L (>60) mL/min BUN/Creatinine Ratio 25.2 H (6-22) Glucose 80 (80-110) mg/dL Calcium 9.4 (8.4-10.2) mg/dL Magnesium 2.3 (1.6-2.3) mg/dL Total Bilirubin 0.6 (0.2-1.3) mg/dL AST 31 (14-36) IU/L ALT 26 (<35) IU/L Alkaline Phosphatase 81 (38-126) U/L Total Creatine Kinase 212 H (30-135) U/L Troponin I 0.024 (0.01-0.034) ng/mL Total Protein 7.6 (6.3-8.2) g/dL Albumin 4.3 (3.5-5.0) g/dL Globulin 3.3 (1.7-4.1) g/dL Albumin/Globulin Ratio 1.3 (1.0-2.8) Lipase 168 (23-300) U/L Imaging Data Extremity x-ray #1: Radiologist's Impression: PROCEDURE: XR WRIST RT MIN 3V INDICATIONS: eval for FX TECHNIQUE: 4 views of the wrist were acquired. COMPARISON: [facility], WRIST MINIMUM 3 VIEWS LEFT, 04/11/2012, 13:25. FINDINGS: Bones: Markedly comminuted impacted distal radius fracture extending to the articular surface with associated distal radial ulnar dislocation. Advanced degenerative arthritis at the base of the thumb is incidentally noted. Question nondisplaced ulnar styloid avulsion. No other fractures or dislocations. Soft tissues: No suspicious soft tissue calcifications. IMPRESSION: Markedly comminuted, impacted, displaced distal radius fracture extending to the articular surface with associated distal radial ulnar dislocation. Question associated ulnar styloid avulsion. Chest x-ray: Radiologist's Impression: PROCEDURE: XR CHEST 1V INDICATIONS: chest pain TECHNIQUE: One view of the chest was acquired. COMPARISON: [facility], XR CHEST 1V, 05/10/2021, 10:06. FINDINGS: Surgical changes and devices: None. Lungs and pleura: Mild right basilar scarring. Question emphysematous change. No pleural effusions or pneumothorax. Mediastinum: Mediastinal contours appear normal. Cardiomegaly. Bones and chest wall: No suspicious bony lesions. Overlying soft tissues appear unremarkable. IMPRESSION: Question emphysematous change. No acute pulmonary infiltrates. Cardiomegaly. ECG Data Attestation: I personally reviewed and interpreted this ECG as follows: Interpretation: Sinus rhythm Ventricular rate is 74 Normal axis Normal QRS Normal QTC Nonspecific ST T wave changes MDM Narrative Medical decision making narrative: Patient's blood pressures have improved. She is neurovascularly intact. Splint placed on the right wrist. She has no other injuries from the event. Not on blood thinners. Will discharge patient home with instructions to follow-up with orthopedic surgery. No indication for admission to the hospital prior she was given return precautions. She expressed understanding and agreement. Discharge Plan Departure Patient Disposition: Home Clinical Impression: Wrist fracture, right Instructions: How to Prevent Falls, How to Take Care of Your Splint Activity Restrictions/Additional Instructions: The splint that was placed today does need to be treated like a cast. You need to keep it on and keep it clean keep it dry. You do need to contact the Orthopedic Department at the numbers provided below for a follow-up next week. Continue all of your medications as directed. Return to the emergency department for new symptoms. Prescriptions: No Action sumatriptan succinate 100 mg tablet See Rx Instructions PO .COMPLEX Qty: 10 0RF Dose Instruction: take 1 tab at onset of headache; if no relief may repeat 1 tab in 2hr; max = 2 tabs/24 hrs PO Rx Instructions: take 1 tab at onset of headache; if no relief may repeat 1 tab in 2hr; max = 2 tabs/24 hrs PO estradiol 0.01 % (0.1 mg/gram) cream 1 appful VAGINAL DAILY PRN (Reason: vaginal dryness) Qty: 42.5 3RF pregabalin 100 mg capsule 100 mg PO BID Qty: 180 1RF duloxetine 60 mg capsule,delayed release(DR/EC) 60 mg PO DAILY Qty: 90 3RF furosemide 40 mg tablet 40 mg PO DAILY Qty: 90 3RF losartan 25 mg tablet 25 mg PO DAILY Qty: 90 3RF rosuvastatin 10 mg tablet 10 mg PO DAILY Qty: 90 3RF trazodone 150 mg tablet 150 mg PO BEDTIME Qty: 90 3RF ipratropium bromide 21 mcg (0.03 %) spray,non-aerosol intranasal hydrocortisone acetate [Anucort-HC] 25 mg suppository 25 mg AK DAILY PRN lidocaine 5 % cream 1 applic topical BID PRN polyethylene glycol 3350 [Miralax] 17 gram/dose powder 17 g PO DAILY PRN (Reason: constipation) Restasis 0.05 % Dropperette 1 drp ophthalmic (eye) BID Referrals: Eric Youssef MD [Primary Care Provider] - Reena Bello MD [Physician] - Stand Alone Forms: Patient Portal/API
[2023-04-14] MEDS: MORPHINE 2 MG/ML INJ IV (13:03)
== END 2023-04-14 14:24 | disposition home or self-care (01) ==
PROVIDERS: Emergency Provider Emergency Medicine; PCP Internal Medicine
DX: S52.501A Unspecified fracture of the lower end of right radius, initial encounter for closed fracture (principal); R07.9 Chest pain, unspecified; I95.9 Hypotension, unspecified; W18.30XA Fall on same level, unspecified, initial encounter
CPT/HCPCS: 29125; 36415; 71045; 73110; 80053; 82550; 83690; 83735; 84484; 85025; 85610; 85730; 93005; 96374; 99284; J2270

== ENCOUNTER → 2023-06-28 12:12 | Outpatient (CLI) | payer MEDICARE, OTHER, SELFPAY ==
[2023-04-18 11:25] VITALS: BMI 19.5
[2023-06-28 13:49] LABS: BUN Creatinine Ratio 38.3 (6-22); Blood Urea Nitrogen 23 mg/dL (7-17); Calcium 9.2 mg/dL (8.4-10.2); Carbon Dioxide 32 mmol/L (22-32); Chloride 105 mmol/L (98-107); Estimated Glomerular Filt Rate > 60 mL/min (>60); Glucose 89 mg/dL (80-110); HEMOLYSIS < 15 (0-50); Potassium 4.4 mmol/L (3.4-5.1); Sodium 140 mmol/L (137-145)
== END ==
PROVIDERS: PCP Internal Medicine; Referring Provider Internal Medicine; Visit Provider Internal Medicine
DX: N17.9 Acute kidney failure, unspecified (principal)
CPT/HCPCS: 36415; 80048

== ENCOUNTER → 2024-01-01 16:18 | Outpatient (CLI) | payer MEDICARE, OTHER, SELFPAY ==
[2023-04-18 11:25] VITALS: BMI 19.5
--- NOTE | 2024-01-01 16:20 | DI.RAD.S_ITS ---
PROCEDURE: XR WRIST RT 3V INDICATIONS: right wrist pain TECHNIQUE: 3 views of the wrist were acquired. COMPARISON: No prior x-ray available for comparison FINDINGS: Postoperative changes with plate and screw fixation right distal radius diaphysis into the metaphysis, epiphysis with healed remote fracture deformity. Moderate degenerative changes of the radiocarpal, intracarpal, and 1st metacarpophalangeal joint. Severe degenerative changes right 1st carpal-metacarpal joint. No radiographic evidence of acute fracture, dislocation or high attenuation foreign body. IMPRESSION: Status post ORIF right distal radius. Degenerative changes as discussed above. Dictated by: Sage Edwards M.D. on 01/03/2024 at 21:11 Approved by: Sage Edwards M.D. on 01/03/2024 at 21:16
== END ==
PROVIDERS: PCP Internal Medicine; Referring Provider Internal Medicine; Visit Provider Internal Medicine
DX: M25.531 Pain in right wrist (principal); S52.591S Other fractures of lower end of right radius, sequela
CPT/HCPCS: 73110

== ENCOUNTER 2024-03-11 11:58 | Emergency (ER) | payer MEDICARE, OTHER, SELFPAY ==
[2023-04-18 11:25] VITALS: BMI 19.5
[2024-03-11 12:27] VITALS: BP 109/76; PULSE 71; RESP 20; TEMP 36.6; O2SAT 99; BMI 22.8
--- NOTE | 2024-03-11 12:32 | DI.RAD.S_ITS ---
PROCEDURE: XR RIBS LT MIN 3V W CXR1V INDICATIONS: fall, L rib pain TECHNIQUE: 2 views of the ribs were acquired, along with a single view chest. COMPARISON: None. FINDINGS: Surgical changes and devices: None. Bones and chest wall: No fractures or dislocations. No suspicious bony lesions. Overlying soft tissues appear unremarkable. Lungs and pleura: No pleural effusions or pneumothorax. Left greater than right basilar atelectasis versus consolidation. Mediastinum: Mediastinal contours appear normal. Heart size is normal. IMPRESSION: No displaced rib fracture or pneumothorax. Left greater than right basilar atelectasis versus consolidation. Dictated by: Peter Alexandra M.D. on 03/11/2024 at 13:42 Approved by: Peter Alexandra M.D. on 03/11/2024 at 13:44
--- NOTE | 2024-03-11 14:29 | PC.NURSE ---
Patient's support person came out of the room demanding for patient to be seen immediately. Patient was sitting in recliner in no acute distress. Educated support person that patient's are seen in order of acuity when the provider is available. Also educated that if patient does not want to wait they do not have to and can leave at any time. Support person said Great we are leaving then! Put patient into wheelchair and left the fast track department. Provider made aware.
== END 2024-03-11 14:32 | disposition left against medical advice (07) ==
PROVIDERS: Emergency Provider Student in an Organized Health Care Education/Training Program; PCP Internal Medicine
DX: M54.9 Dorsalgia, unspecified (principal)
CPT/HCPCS: 71101; 99281

== ENCOUNTER → 2024-06-25 15:09 | Outpatient (CLI) | payer MEDICARE, OTHER, SELFPAY ==
[2023-04-18 11:25] VITALS: BMI 19.5
[2024-06-25 17:16] LABS: Hematocrit 35.7 % (36-46); Mean Corpuscular HGB Conc 33.6 % (30-36); Mean Corpuscular Hemoglobin 29.4 PG (26-34); Mean Corpuscular Volume 87.5 fL (80-100); Platelet Count 200 X10^3/uL (150-400); Red Blood Cell Count 4.08 X10^6/uL (4.0-5.2); Red Cell Distribution Width 13.9 % (11.6-14.8); White Blood Cell Count 4.2 X10^3/uL (4.5-11.0)
[2024-06-25 17:36] LABS: Alanine Aminotransferase 24 IU/L (<35); Albumin 4.2 g/dL (3.5-5.0); Albumin Globulin Ratio 1.3 (1.0-2.8); Alkaline Phosphatase 67 U/L (38-126); Aspartate Aminotransferase 35 IU/L (14-36); BUN Creatinine Ratio 26.5 (6-22); Bilirubin Total 0.7 mg/dL (0.2-1.3); Blood Urea Nitrogen 26 mg/dL (7-17); Carbon Dioxide 30 mmol/L (22-32); Chloride 104 mmol/L (98-107); Cholesterol 154 mg/dL (140-199); Estimated Glomerular Filt Rate 58 mL/min (>60); Globulin 3.2 g/dL (1.7-4.1); Glucose 87 mg/dL (80-110); HDL Cholesterol 63 mg/dL (40-60); HEMOLYSIS < 15 (0-50); LDL Cholesterol Calculated 79 mg/dL (<100); Potassium 3.9 mmol/L (3.4-5.1); Sodium 142 mmol/L (137-145); Total Protein 7.4 g/dL (6.3-8.2); Triglycerides 60 mg/dL (35-150)
[2024-06-25 18:06] LABS: TSH w/ Reflex to FT4 1.57 uIU/mL (0.47-4.68)
== END ==
PROVIDERS: PCP Internal Medicine; Referring Provider Internal Medicine; Visit Provider Internal Medicine
DX: I10 Essential (primary) hypertension (principal); E78.2 Mixed hyperlipidemia; K59.00 Constipation, unspecified
CPT/HCPCS: 36415; 80053; 80061; 84443; 85027

== ENCOUNTER → 2024-08-21 15:05 | Outpatient (CLI) | payer MEDICARE, OTHER, SELFPAY ==
[2023-04-18 11:25] VITALS: BMI 19.5
--- NOTE | 2024-08-21 15:08 | DI.RAD.S_ITS ---
PROCEDURE: XR DEXA AXIAL SKELETON INDICATIONS: menopausal COMPARISON: [facility], , XR DEXA AXIAL SKELETON, 12/18/2017, 10:14. FINDINGS: Lumbar Spine (L3 excluded due to increased density): Bone mineral density 1.104 g/cm2, T score 0.6, previously 1.6. Left Femoral Neck: Bone mineral density 0.549 g/cm2, T score -2.7. Left Hip: Bone mineral density 0.654 g/cm2, T score -2.4, previously -1.7. Fracture Risk Calculation (when applicable): Not reported due to osteoporosis diagnosis. (T score greater or equal to -1.0 to: NORMAL) (T score from -1.1 to -2.4: OSTEOPENIA) (T score less than or equal to -2.5: OSTEOPOROSIS) IMPRESSION: Osteoporosis. Follow-up guidelines as follows: Osteoporosis: Consider a repeat DEXA and Vertebral Fracture Assessment (VFA) exam in 2 years or sooner if medically necessary, to reassess this patient's status. Osteopenia: Consider a repeat DEXA in 2-3 years to reassess this patient's status, or if there is a new clinical indication. Normal: Consider a repeat DEXA in 5 years or sooner, or if there is a new clinical indication. All treatment decisions require clinical judgment and consideration of individual patient factors, including patient preferences, comorbidities, previous drug use, risk factors not captured in the FRAX model (e.g., frailty, falls, vitamin D deficiency, increased bone turnover, interval significant decline in bone density ) and possible under- or over-estimation of fracture risk by FRAX. In addition, the NOF Guide recommends that FDA-approved medical therapies be considered in postmenopausal women and men age >= 50 years with a: * Hip or vertebral (clinical or morphometric) fracture * T-score of <=-2.5 at the spine or hip * Ten-year fracture probability by FRAX of >= 3% for hip fracture or >=20% for major osteoporotic fracture. Dictated by: Cruz Olivares M.D. on 08/22/2024 at 10:21 Approved by: Cruz Olivares M.D. on 08/22/2024 at 10:22
== END ==
LOC: RAD 15:07
PROVIDERS: PCP Internal Medicine; Referring Provider Internal Medicine; Visit Provider Internal Medicine
DX: M81.0 Age-related osteoporosis without current pathological fracture (principal); M85.89 Other specified disorders of bone density and structure, multiple sites
CPT/HCPCS: 77080

== ENCOUNTER → 2024-09-25 16:08 | Outpatient (CLI) | payer MEDICARE, OTHER, SELFPAY ==
[2023-04-18 11:25] VITALS: BMI 19.5
--- NOTE | 2024-09-25 16:10 | DI.RAD.S_ITS ---
PROCEDURE: XR LUMBAR SPINE 2-3V INDICATIONS: low back pain, no trauma TECHNIQUE: 3 views of the lumbar spine were acquired. COMPARISON: None. FINDINGS: Lumbar spine curvature and alignment: Severe dextroscoliosis lower thoracic and lumbar spine appreciated. Bones: Moderate chronic right lateral wedging of the L1-L2 L3 and L4 vertebral bodies. Disc spaces: Severe degenerative disc disease T12-L1 through L4-5 and mild L5- S1 degenerative disc disease. Severe L2-3 through L5-S1 degenerative facet disease Soft tissues: No soft tissue swelling, calcification or mass. IMPRESSION: Chronic findings as described Dictated by: Fernando Mariscal M.D. on 09/26/2024 at 10:49 Approved by: Fernando Mariscal M.D. on 09/26/2024 at 10:50
== END ==
PROVIDERS: PCP Internal Medicine; Referring Provider Internal Medicine; Visit Provider Internal Medicine
DX: M51.35 Other intervertebral disc degeneration, thoracolumbar region (principal); M51.360 Other intervertebral disc degeneration, lumbar region with discogenic back pain only; M51.370 Other intervertebral disc degeneration, lumbosacral region with discogenic back pain only; M47.816 Spondylosis without myelopathy or radiculopathy, lumbar region; M47.817 Spondylosis without myelopathy or radiculopathy, lumbosacral region; M48.062 Spinal stenosis, lumbar region with neurogenic claudication; G89.29 Other chronic pain
CPT/HCPCS: 72100

== ENCOUNTER → 2024-09-27 19:19 | Outpatient (CLI) | payer MEDICARE, OTHER, SELFPAY ==
[2023-04-18 11:25] VITALS: BMI 19.5
--- NOTE | 2024-09-27 19:20 | DI.MRI.S_ITS ---
PROCEDURE: MR LUMBAR SPINE WO CON INDICATIONS: low back pain, no trauma TECHNIQUE: Noncontrast sagittal T1 spin echo and T2 fast echo, sagittal STIR, and T2 fast spin echo through the lumbar spine. In cases with scoliosis, additional coronal T2 fast spin echo may be performed. COMPARISON: 01/04/2019. FINDINGS: Image quality: Excellent. Alignment and Curvature: Severe dextroscoliosis. Bone Marrow: Marrow is of normal overall signal. No acute vertebral body compression fractures. Advanced multilevel degenerative disc disease with marked endplate changes throughout the lumbar spine. Spinal Cord: Conus medullaris terminates at the L1 level. Visualized cord demonstrates normal signal and size. Paraspinous Soft Tissues: No paravertebral masses. The combination of disc bulging with endplate spurring, ligamentum flavum hypertrophy , severe scoliosis and facet arthropathy result in the following: T12-L1: Mild central canal stenosis with moderate bilateral foraminal stenosis. L1-L2: Moderate central canal stenosis with severe bilateral foraminal stenosis. L2-L3: Severe central canal stenosis with severe bilateral foraminal stenosis. L3-L4: Severe central canal stenosis with obliteration of both exit foramina. L4-L5: Obliteration of the central canal and both exit foramina. L5-S1: Severe central canal stenosis with mild bilateral foraminal stenosis. IMPRESSION: Advanced multilevel degenerative disc disease which is accentuated by a severe dextroscoliosis results in varying degrees of central canal or foraminal stenosis with progression from prior imaging in 2019. Dictated by: Martha Couch M.D. on 09/30/2024 at 14:25 Approved by: Martha Couch M.D. on 09/30/2024 at 14:30
== END ==
LOC: MRI 19:20
PROVIDERS: PCP Internal Medicine; Referring Provider Internal Medicine; Visit Provider Internal Medicine
DX: M51.360 Other intervertebral disc degeneration, lumbar region with discogenic back pain only (principal); M41.9 Scoliosis, unspecified; M48.062 Spinal stenosis, lumbar region with neurogenic claudication; M48.07 Spinal stenosis, lumbosacral region; G89.29 Other chronic pain
CPT/HCPCS: 72148